=== PATIENT | male | born 1960 | race Caucasian/White ===

== ENCOUNTER → 2017-08-01 11:00 | Outpatient (CLI) | payer BC, SELFPAY ==
--- NOTE | 2017-08-01 15:23 | RAD_ITS ---
STUDY: X-RAY - CERVICAL SPINE REASON FOR EXAM: Male, 57 years old. Tingling in the arm. Right-sided neck pain TECHNIQUE: 5 view(s) of the cervical spine were obtained. COMPARISON: None FINDINGS: Normal anterior atlantoaxial articulation. Normal odontoid process. There is reversal of the normal cervical lordosis. There is C5-6 and C6-7 endplate spondylosis. There is C6-7 disc space narrowing. There is C5-6 and C6-7 osseous foraminal stenosis. The soft tissue structures are unremarkable. RAD/Cerv Spine 4 or 5 Views IMPRESSION: Degenerative change. No fracture. Electronically Signed: Jean Marie Chang MD at 22:25 EDT , Service support ,
== END ==
PROVIDERS: Family Provider Family Medicine; PCP Family Medicine; Visit Provider Family Medicine
DX: M54.12 Radiculopathy, cervical region (principal)
CPT/HCPCS: 72050

== ENCOUNTER 2017-09-14 18:00 | Outpatient (RCR) | payer BC, SELFPAY ==
--- NOTE | 2017-08-24 19:08 | HP.PTEVAL_ITS ---
Patient's Visit Information OGLA LOPEZ is a 57 year old M referred to Physical Therapy by Lokesh Foreman with a diagnosis of cervical radicuo. Date of Evaluation: 08/24/17 Physical Therapist: Ana Díaz - Visit Plan Frequency: 2x /Week Duration: 6 Weeks Plan: 2X/ week for 4-6 weeks for postural exercises, c-spine AROM, scapular strengthening, centralization of symptoms with HEP and modalities PRN. - Subjective Subjective: Pt reports that he has DDD of the spine and its pinching when he looks up to mid trap and then down the R arm. He can control it by not looking up. He woke up with a stiff neck one day and then one day it did not go away. The stiff neck went away and then the tingling thing would not go away. He started him on prednizone and something else and they did not do anything. Then Dr Loja relieved the muscle with a shot. He can manage but its a pain in the neck. Every once in awhile it will wake him up. It makes his R arm muscle achy(ddep in the lateral shoulder) but no weakness. He sleeps with 2 crappy pillows under his head at night. He thinks his pillows are pushing his neck more to one side. He does watch TV with his pillow propped up. 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 c-spine AROM: flexion 100%, ext 10 %, SB L 25% and R 50%, Ext 5%, Rot R 75% and L 85%. UE AROM: full AROM. UE MMT: shld flex B 4/5, shld abd 4/5, ER/IR B 4/5. Posture: Horrible flexed fw head, rounded shoulders. Tried to get pt to lay supine but was unable to do so unless his head was propped into extreme flexion. Unable to do any traction because could not get his head out of flexion. Palpation: tender points in mid trap that are very tender to palpation...... - Goals Goal 1:: I HEP Goal Time Frame: 4-6 Weeks Goal 2:: Sit with upright posture during treatment sessions Goal Time Frame: 4-6 Weeks Goal 3:: Decrease freq of arm and neck pain to 1/10 after a work day Goal Time Frame: 4-6 Weeks Goal 4:: Increase c-spine AROM to 50% normal extension of c-spine. Goal Time Frame: 4-6 Weeks - Rehabilitation Potential Rehabilitation Potential: Good - Anticipated Interventions Patient/Client Instruction: Educate patient on: Condition, Plan of Care For the Purpose of:: To decrease pain, To decrease swelling/inflammation, To increase ROM, To improve nutrient delivery to tissue, To improve muscle performance and motor function, To improve ability to perform ADL's, To increase tolerance to activity/condition/position, To improve performance and independence with ADL's, To improve ability of physical actions for home/ community/work/leisure, To improve health of tissue, To decrease soft tissue restriction, To increase flexibility/ROM Therapeutic Exercise to Include: Strength training, Postural training, Flexibilty training, Passive ROM, Active ROM, Scapular Strength/Stabilization For the Purpose of:: To decrease pain, To increase ROM, To improve nutrient delivery to tissue, To improve muscle performance and motor function, To improve ability to perform ADL's, To increase tolerance to activity/condition/ position, To improve performance and independence with ADL's, To improve ability of physical actions for home/community/work/leisure, To improve health of tissue, To decrease soft tissue restriction, To increase flexibility/ROM Manual Therapy Techniques to Include: Trigger point massage, Massage, Passive ROM, Functional dry needling, Soft tissue mobilization For the Purpose of:: To decrease pain, To increase ROM, To improve nutrient delivery to tissue, To improve muscle performance and motor function, To increase tolerance to activity/condition/position, To decrease level of supervision to perform tasks, To improve gait and locomotor functions, To decrease soft tissue restriction, To increase flexibility/ROM IF ES: Yes Cryotherapy (ice pack, ice massage): Yes Thermo therapy (hot pack): Yes Ultrasound (thermal/non thermal): Yes For the Purpose of:: To decrease pain, To decrease swelling/inflammation, To increase ROM, To improve nutrient delivery to tissue, To improve muscle performance and motor function, To improve ability to perform ADL's Thank you for the opportunity to evaluate your patient. For Medicare and Medicare HMO plans, please review the plan of care and approve it. It will need to be FAXED BACK to us at [phone] for Medicare purposes. Please let me know if there are questions or concerns regarding this plan of care. Physician Signature: Date:
--- NOTE | 2017-09-14 18:21 | HP.PTDCNRP_ITS ---
HP - Discharge Summary (1) - Patient Information OLGA LOPEZ was seen in my office for initial evaluation on 08/24/17. The following Plan of Care was established for this patient: Initial Frequency: 2x /Week Initial Duration: 6 Weeks - Anticipated Interventions Patient/Client Instruction: Educate patient on: Condition, Plan of Care For the Purpose of:: To decrease pain, To decrease swelling/inflammation, To increase ROM, To improve nutrient delivery to tissue, To improve muscle performance and motor function, To improve ability to perform ADL's, To increase tolerance to activity/condition/position, To improve performance and independence with ADL's, To improve ability of physical actions for home/ community/work/leisure, To improve health of tissue, To decrease soft tissue restriction, To increase flexibility/ROM Therapeutic Exercise to Include: Strength training, Postural training, Flexibilty training, Passive ROM, Active ROM, Scapular Strength/Stabilization For the Purpose of:: To decrease pain, To increase ROM, To improve nutrient delivery to tissue, To improve muscle performance and motor function, To improve ability to perform ADL's, To increase tolerance to activity/condition/ position, To improve performance and independence with ADL's, To improve ability of physical actions for home/community/work/leisure, To improve health of tissue, To decrease soft tissue restriction, To increase flexibility/ROM Manual Therapy Techniques to Include: Trigger point massage, Massage, Passive ROM, Functional dry needling, Soft tissue mobilization For the Purpose of:: To decrease pain, To increase ROM, To improve nutrient delivery to tissue, To improve muscle performance and motor function, To increase tolerance to activity/condition/position, To decrease level of supervision to perform tasks, To improve gait and locomotor functions, To decrease soft tissue restriction, To increase flexibility/ROM IF ES: Yes Cryotherapy (ice pack, ice massage): Yes Thermo therapy (hot pack): Yes Ultrasound (thermal/non thermal): Yes For the Purpose of:: To decrease pain, To decrease swelling/inflammation, To increase ROM, To improve nutrient delivery to tissue, To improve muscle performance and motor function, To improve ability to perform ADL's This patient was last seen in our office . Pertinent comments regarding their Physical therapy will appear below: At this point I will be discontinuing this patient from physical therapy. I would be happy to see this patient again in the future if found appropriate by the physician. Thank you! Ana Díaz
--- NOTE | 2017-09-14 18:28 | HP.PTDCSUM_ITS ---
HP - PT D/C Summary It has been my pleasure to treat OLGA LOPEZ under orders from Lokesh Foreman, for the diagnosis of cervical radicuo for a total of 6 visit (s). Discharge Date: 09/14/17 Please see the following information for a summary of their discharge status. - Subjective Subjective: Pt can't find a spot of comfort. He has to work to find a good sleeping position and if he moves and sets it off then he wakes up. By the end of the work day his R shoulder and neck is flared up. Pt feels that we were making some progress at first as far as his posture etc but now he feels that he has totally plateaued. Pt was really sore after the massage last visit but was a little less painful the next morning but worse as the day goes on. - Pain neck pain Pain Intensity (Out of 10): 5 R shloulder pain Pain Intensity (Out of 10): 2 - Overall Improvement % Improvement: 15 - Objective Objective/Function: c-spine AROM: flexion 100%, ext to neutral, Rot R 65%, Rot L 75%. Posture has definitely improved but fw head still persists due to increased R arm pain with anytype of extension ROM of the c-spine. Lying down with a towel roll uder his head sets off his arm symptoms.... - Goals Goal 1:: I HEP Goal Progress: Goal Met Goal 2:: Sit with upright posture during treatment sessions Goal Progress: Goal Met Goal 3:: Decrease freq of arm and neck pain to 1/10 after a work day Goal Progress: Not Progressing Goal 4:: Increase c-spine AROM to 50% normal extension of c-spine. Goal Progress: Not Progressing - Plan Plan: DC PT and back to physician for reassessment/possible MRI. Pt is not making gains in PT. - D/C Information Discharge Comments: DC PT If there are questions or concerns regarding this patient's physical therapy, please feel free to call me at [phone]. Thank you for the referral of this patient. Sincerely, Ana Díaz
== END 2017-09-14 19:00 | disposition home or self-care (01) ==
LOC: PT 18:00
PROVIDERS: Family Provider Family Medicine; PCP Family Medicine; Visit Provider Family Medicine
DX: M54.12 Radiculopathy, cervical region (principal)
CPT/HCPCS: 97035; 97110; 97140; 97161; 97530

== ENCOUNTER → 2017-09-28 12:09 | Outpatient (CLI) | payer BC, SELFPAY ==
--- NOTE | 2017-09-28 12:14 | MRI_ITS ---
STUDY: MRI CERVICAL SPINE WITHOUT CONTRAST REASON FOR EXAM: Male, 57 years old. Neck pain and right upper extremity radiculopathy TECHNIQUE: Standardized fat and water weighted pulse sequences were obtained in the sagittal and axial planes. COMPARISON: None FINDINGS: Normal foramen magnum and brainstem-cervical cord junction. Normal craniovertebral junction. Normal anterior atlantoaxial articulation. Normal odontoid process. Straightening of the cervical curvature with mild kyphosis at C7-T1. Normal vertebral bodies and posterior osseous elements. C2-3: Normal endplates. Normal disc height, signal and small central disc protrusion narrowing the spinal canal and mildly impinging upon the cord. Normal intervertebral neural foramina. C3-4: Normal endplates. Normal disc height, signal and small central disc protrusion mildly narrowing the spinal canal and impinging upon the cord.. Normal intervertebral neural foramina. C4-5: Normal endplates. Normal disc height, signal and morphology. Normal central canal and intervertebral neural foramina. C5-6: Narrowed disc space and mild endplate spurring tiny left posterolateral disc/osteophyte protrusion... Normal central canal. Moderate to severe bilateral neuroforaminal stenosis secondary to bony hypertrophy C6-7: Mild endplate spurring. Normal disc height, signal and minor bulging disc osteophyte complex. Normal central canal and severe left neuroforaminal stenosis secondary to bony hypertrophy and moderate narrowing on the right. C7-T1: Normal endplates. Normal disc height, signal and morphology. Normal central canal and intervertebral neural foramina. Normal cervical cord. Normal visualized soft tissue structures. MRI/Spine Cervical (Routine) IMPRESSION: Minor spinal stenosis and cord impingement secondary to disc protrusions at C2-3 and C3-4.. Neuroforaminal stenosis at C5-6 and C6-7 secondary to bony hypertrophy.. Findings as above Electronically Signed: Vito Pereira MD at 22:54 EDT , Service support ,
--- NOTE | 2017-09-28 12:26 | RAD_ITS ---
STUDY: X-RAY - ORBITS REASON FOR EXAM: Male, 57 years old. This study is being performed as a clearance examination for exclusion of orbital metal, prior to the performance of an MRI examination. TECHNIQUE: 2 view(s) of the orbits were obtained. COMPARISON: None. FINDINGS: Normal bilateral orbits without a metallic orbital foreign body. Normal visualized facial bones. Normal paranasal sinuses. The soft tissue structures are unremarkable. RAD/Orbits for Foreign Body IMPRESSION: No demonstrated metallic orbital foreign body. The patient is cleared for an MRI examination. Electronically Signed: Fox Alves MD at 12:56 EDT Tel , Service support ,
== END ==
PROVIDERS: Family Provider Family Medicine; PCP Family Medicine; Visit Provider Family Medicine
DX: M54.12 Radiculopathy, cervical region (principal)
CPT/HCPCS: 70030; 72141

== ENCOUNTER 2018-04-05 07:26 | Day surgery (SDC) | payer BC, SELFPAY ==
[2018-04-05 07:51] VITALS: BP 143/82; PULSE 69; RESP 16; TEMP 37.1; O2SAT 100; BMI 26.2
--- NOTE | 2018-04-05 09:22 | PCM.HP.STD ---
Problem List (1) Family history of colon cancer Status: Acute History of Present Illness Date of Admission: 04/05/18 The patient is a 58 year old M who presents for a colonoscopy. Patient has a sister who had colon cancer. Patient also states that he has had an episode of diverticulitis in the past but is never had a colonoscopy himself. Past Medical History Allergies No Known Allergies Allergy (Verified 04/04/18 10:11) Home Medications: Ambulatory Orders Medication Instructions Recorded NK 04/04/18 Smoking Status: Current every day smoker Tobacco Use: Cigarettes Review of Systems Cardiovascular: Denies: Chest Pain, Chest Pressure, Chest Tightness, Palpitations Respiratory: Denies: Cough, Hemoptysis, Shortness of breath at rest, Shortness of breath upon exertion, Wheezing Gastrointestinal: Denies: Abdominal Pain, Constipation, Diarrhea, Hematemesis, Nausea, Melena, Vomiting VTE Information - Inpt Only VTE Present on Admission: No VTE Mechan Device Prophylaxis: None VTE Pharm Prophylaxis ordered?: No Reason prophylaxis not ordered:: Treatment Not Indicated Patient Problems: Active and Suspected Problems Family history of colon cancer (Acute) - Physical Exam Lungs: Clear to auscultation Cardiovascular: Regular rate, Regular Rhythm, No murmurs Abdomen: Bowel Sounds Present, Soft, Non Tender, Non-Distended Vital Signs Temp Pulse Resp BP Pulse Ox 98.7 F 69 16 143/82 H 100 04/05/18 07:51 04/05/18 07:51 04/05/18 07:51 04/05/18 07:51 04/05/18 07:51 Oxygen Delivery Method Room Air Weight: 172 lb 2.896 oz Body Mass Index (BMI) 26.2 Assessment/Plan All Active Problems Family history of colon cancer (Acute) My plan is to perform a colonoscopy. Risk and benefits have been reviewed with the patient to include bleeding and possible perforation patient understood risk and was willing to proceed.
[2018-04-05 09:25] VITALS: BP 108/71; BP 143/82; PULSE 72; RESP 16; TEMP 36.8; O2SAT 97
--- NOTE | 2018-04-05 09:29 | OP.ENDO_ITS ---
Patient Name: Kumar Marie Procedure Date: 04/05/2018 9:00 AM Date of : 1960 Age: 58 Procedure: Colonoscopy Indications: Screening in patient at increased risk: Family history of 1st-degree relative with colorectal cancer before age 60 years Providers: Davonte Osullivan MD Referring MD: Siva Foreman Medicines: See the Anesthesia note for documentation of the administered medications Patient Profile: This is a 58 year old male. Refer to note in patient chart for documentation of history and physical. Last Colonoscopy: none. The patient's first colonoscopy is today. Complications: No immediate complications. Procedure: Pre-Anesthesia Assessment: - Prior to the procedure, a History and Physical was performed, and patient medications and allergies were reviewed. The patient's tolerance of previous anesthesia was also reviewed. The risks and benefits of the procedure and the sedation options and risks were discussed with the patient. All questions were answered, and informed consent was obtained. Prior Anticoagulants: The patient has taken no previous anticoagulant or antiplatelet agents. ASA Grade Assessment: II - A patient with mild systemic disease. After reviewing the risks and benefits, the patient was deemed in satisfactory condition to undergo the procedure. After I obtained informed consent, the scope was passed under direct vision. Throughout the procedure, the patient's blood pressure, pulse, and oxygen saturations were monitored continuously. The adult colonoscope was introduced through the anus with the intention of advancing to the cecum. The scope was advanced to the sigmoid colon before the procedure was aborted. Medications were given. The colonoscopy was aborted due to the extreme difficulty of the procedure. Withdrawing and reinserting the scope did not allow for the successful completion of the procedure. Scope In: 9:09:46 AM Scope Out: 9:19:43 AM Total Procedure Duration Time 0 hours 9 minutes 57 seconds Findings: The perianal and digital rectal examinations were normal. Pertinent negatives include normal sphincter tone. The anus, rectum and recto-sigmoid colon appeared normal. Impression: - The procedure was aborted due to the extreme difficulty of the procedure. - The anus, rectum and recto-sigmoid colon are normal. - No specimens collected. Recommendation: - Perform an air contrast barium enema today. - Repeat colonoscopy in 5 years for surveillance. - Continue present medications. Procedure Code(s): --- Professional --- 56978, 53, Colonoscopy, flexible; diagnostic, including collection of specimen(s) by brushing or washing, when performed (separate procedure) Diagnosis Code(s): --- Professional --- Z80.0, Family history of malignant neoplasm of digestive organs Z53.8, Procedure and treatment not carried out for other reasons CPT copyright 2017 [employer]. All rights reserved. The codes documented in this report are preliminary and upon professional fee coder review may be revised to meet current compliance requirements. MD Davonte Ramos MD 04/05/2018 9:29:27 AM This report has been signed electronically. Number of Addenda: 0 Note Initiated On: 04/05/2018 9:00 AM
[2018-04-05 09:30] VITALS: BP 117/75; BP 143/82; PULSE 65; RESP 16; O2SAT 100
[2018-04-05 09:35] VITALS: BP 139/78; BP 143/82; PULSE 59; RESP 16; O2SAT 98
[2018-04-05 09:40] VITALS: BP 139/59; BP 143/82; PULSE 66; RESP 16; TEMP 36.6; O2SAT 100
[2018-04-05 10:19] VITALS: BP 143/82
--- NOTE | 2018-04-05 10:30 | RAD_ITS ---
STUDY: BARIUM ENEMA. REASON FOR EXAM: Male, 58 years old. Incomplete colonoscopy. FLUOROSCOPY TIME (if supplied): (0:45) minutes/seconds. 10 images were obtained. TECHNIQUE: A labor representative film was obtained. Following this, barium was introduced retrograde through the rectum. The entire colon wasn't opacified. COMPARISON: None. FINDINGS: On the labor representative film, the gas pattern is unremarkable. There is evidence of extensive sigmoid diverticulosis. Diverticula are also seen in the ascending colon, transverse colon and right hemicolon. There is no evidence of retrograde or antegrade obstruction to the flow of contrast. RAD/Barium Enema No Air Cont IMPRESSION: Diffuse diverticulosis of the colon. Electronically Signed: Adiel Valencia MD at 13:15 EST Tel [phone], Service support ,
--- OUTSIDE RECORDS SUMMARY | 2018-07-07 08:04 | XMS RPT_ITS ---
:1960 Author Organization OHIP Care Team Providers Name Role Phone Davonte Osullivan Attending Unavailable Ranney, Christblancaer Referring Unavailable Ranney, Christopher Primary Care Unavailable Abran, Davonte Consulting Unavailable Abran, Davonte Attending Unavailable Ranney, Christopher Referring Unavailable Ranney, Christopher Attending Unavailable Ranney, Christopher Primary Care Unavailable Ranney, Christopher Attending Unavailable Ranney, Christopher Primary Care Unavailable Ranney, Christopher Attending Unavailable Ranney, Christopher Referring Unavailable Ranney, Christopher Primary Care Unavailable Nurse, Standard Attending Unavailable Ranney, Christopher Referring Unavailable Nurse, Standard Attending Unavailable Ranney, Christopher Referring Unavailable [place], Davonte Attending Unavailable Ranney, Christopher Primary Care Unavailable Ranney, Christopher Referring Unavailable PROBLEMS PROBLEMS DATE TYPE CONDITION / ATTENDING STATUS SOURCE CODE 09/28/2017 Unknown M54.12 - [facility] M54.12(ICD-10) PROCEDURES PROCEDURES No Procedure Records FoundRESULTS RESULTS SURGERY VISIT REPORT Observed: 04/18/2018 Status: F Source: [place] 11:13 AM [facility] REPOSITORY [facility] [address] [place] [address]. 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 There is also diverticuli seen throughout the colon there is no evidence of obstruction and then make no note of any lesions seen within the colon itself. Patient states that he is having bowel movements. He is not experiencing any abdominal pain. Objective Details: His abdomen is soft and nontender Assessment AND Plan Problems 1. Sigmoid stricture K56.699 Plan At the present time there does not appear to be any malignancy in the colon. I told him however there is no way for me to surveilled his colon since I cannot do his colonoscopy and get through the sigmoid colon. I gave him several options as far as trying to seek out another gastroenterology opinion to see if they can do his colonoscopy in future colonoscopies. I also gave him the chance of having an elective sigmoid colon resection. This is a particularly interesting dilemma this patient has he certainly does not need to have an emergent surgery there is no signs of infections and at the present time I have no evidence that he has a malignancy. However it remains I do not think I will be able to surveillance or offer him any further colonoscopies in the future. He understands this is going to think about his options and he will get back in touch with me. Coding Level of Care Code Off vis,est,level 2 Diagnoses Sigmoid stricture K56.699 04/18/18 1113 <Electronically signed by Davonte Osullivan MD> Date Davonte Osullivan MD [facility] Signature: Date (if applicable) CC: Lokesh Foreman MD BARIUM ENEMA NO AIR Observed: 04/05/2018 Status: F Source: [place] CONT 10:18 AM [facility] REPOSITORY [facility] Imaging Services [facility] [place] [address] Barium Enema No Air Cont MR#: [id number] Acct: [id number] Name: OLGA MARIE Rep #: [id number] : 1960 M 58 From: Adiel Valencia MD PCP: Lokesh Foreman MD Status: [facility] Study: Barium Enema No Air Cont Date of Exam: 04/05/18 Exam# [id number] Ordering Dr: Davonte Osullivan MD STUDY: BARIUM ENEMA. REASON FOR EXAM: Male, 58 years old. Incomplete colonoscopy. FLUOROSCOPY TIME (if supplied): (0:45) minutes/seconds. 10 images were obtained. TECHNIQUE: A staff physician film was obtained. Following this, barium was introduced retrograde through the rectum. The entire colon wasn't opacified. COMPARISON: None. FINDINGS: On the staff physician film, the gas pattern is unremarkable. There is evidence of extensive sigmoid diverticulosis. Diverticula are also seen in the ascending colon, transverse colon and right hemicolon. There is no evidence of retrograde or antegrade obstruction to the flow of contrast. RAD/Barium Enema No Air Cont IMPRESSION: Diffuse diverticulosis of the colon. Electronically Signed: Adiel Valencia MD at 13:15 EST Tel [phone], Service support , CC: Lokesh Foreman MD; Davonte Osullivan MD Complaint Manager: Signed OPERATIVE REPORT - Observed: 04/05/2018 Status: F Source: [place] ENDOSCOPY 9:29 AM [facility] Medical Records Department [address] [place] [address] Operative Report - Endoscopy MR#: [id number] Acct: [id number] Name: JESSICAOLGA Mike Rep #: [id number] : 1960 58 From: Davonte Osullivan MD PCP: Lokesh Foreman MD Status: [facility] Patient Name: Olga Marie Procedure Date: 04/05/2018 9:00 AM Date of : 1960 Age: 58 Procedure: Colonoscopy Indications: Screening in patient at increased risk: Family history of 1st-degree relative with colorectal cancer before age 60 years Providers: Davonte Osullivan MD Referring MD: Siva Foreman Medicines: See the Anesthesia note for documentation of the administered medications Patient Profile: This is a 58 year old male. Refer to note in patient chart for documentation of history and physical. Last Colonoscopy: none. The patient's first colonoscopy is today. Complications: No immediate complications. Procedure: Pre-Anesthesia Assessment: - Prior to the procedure, a History and Physical was performed, and patient medications and allergies were reviewed. The patient's tolerance of previous anesthesia was also reviewed. The risks and benefits of the procedure and the sedation options and risks were discussed with the patient. All questions were answered, and informed consent was obtained. Prior Anticoagulants: The patient has taken no previous anticoagulant or antiplatelet agents. ASA Grade Assessment: II - A patient with mild systemic disease. After reviewing the risks and benefits, the patient was deemed in satisfactory condition to undergo the procedure. After I obtained informed consent, the scope was passed under direct vision. Throughout the procedure, the patient's blood pressure, pulse, and oxygen saturations were monitored continuously. The adult colonoscope was introduced through the anus with the intention of advancing to the cecum. The scope was advanced to the sigmoid colon before the procedure was aborted. Medications were given. The colonoscopy was aborted due to the extreme difficulty of the procedure. Withdrawing and reinserting the scope did not allow for the successful completion of the procedure. Scope In: 9:09:46 AM Scope Out: 9:19:43 AM Total Procedure Duration Time 0 hours 9 minutes 57 seconds Findings: The perianal and digital rectal examinations were normal. Pertinent negatives include normal sphincter tone. The anus, rectum and recto-sigmoid colon appeared normal. Impression: - The procedure was aborted due to the extreme difficulty of the procedure. - The anus, rectum and recto-sigmoid colon are normal. - No specimens collected. Recommendation: - Perform an air contrast barium enema today. - Repeat colonoscopy in 5 years for surveillance. - Continue present medications. Procedure Code(s): --- Professional --- 88961, 53, Colonoscopy, flexible; diagnostic, including collection of specimen(s) by brushing or washing, when performed (separate procedure) Diagnosis Code(s): --- Professional --- Z80.0, Family history of malignant neoplasm of digestive organs Z53.8, Procedure and treatment not carried out for other reasons CPT copyright 2017 [employer]. All rights reserved. The codes documented in this report are preliminary and upon medical biller coder review may be revised to meet current compliance requirements. MD Davonte Ramos MD 04/05/2018 9:29:27 AM This report has been signed electronically. Number of Addenda: 0 Note Initiated On: 04/05/2018 9:00 AM 04/05/18928 Date Davonte Maldonado Signature: Date (if indicated) CC: Lokesh Foreman MD; Davonte Osullivan MD Date Dictated: 04/05/18899 Date Transcribed: Complaint Manager: ALTAF Signed HISTORY AND PHYSICAL Observed: 04/05/2018 Status: F Source: [place] EXAM 9:25 AM [facility] REPOSITORY [facility] Medical Records Department [address] [place] [address] History and Physical 04/05/18921 MR#: [id number] Acct: [id number] Name: OLGA MARIE Rep #: [id number] : 1960 58 From: Davonte Osullivan MD PCP: Lokesh Foreman MD Status: [facility] Location: [place] [address] Problem List (1) Family history of colon cancer Status: Acute History of Present Illness Date of Admission: 04/05/18 The patient is a 58 year old M who presents for a colonoscopy. Patient has a sister who had colon cancer. Patient also states that he has had an episode of diverticulitis in the past but is never had a colonoscopy himself. Past Medical History Allergies No Known Allergies Allergy (Verified 04/04/18 10:11) Home Medications: Ambulatory Orders Medication Instructions Recorded NK 04/04/18 Smoking Status: Current every day smoker Tobacco Use: Cigarettes Review of Systems Cardiovascular: Denies: Chest Pain, Chest Pressure, Chest Tightness, Palpitations Respiratory: Denies: Cough, Hemoptysis, Shortness of breath at rest, Shortness of breath upon exertion, Wheezing Gastrointestinal: Denies: Abdominal Pain, Constipation, Diarrhea, Hematemesis, Nausea, Melena, Vomiting VTE Information - Inpt Only VTE Present on Admission: No VTE Mechan Device Prophylaxis: None VTE Pharm Prophylaxis ordered?: No Reason prophylaxis not ordered:: Treatment Not Indicated Patient Problems: Active and Suspected Problems Family history of colon cancer (Acute) - Physical Exam Lungs: Clear to auscultation Cardiovascular: Regular rate, Regular Rhythm, No murmurs Abdomen: Bowel Sounds Present, Soft, Non Tender, Non-Distended Vital Signs Temp Pulse Resp BP Pulse Ox 98.7 F 69 16 143/82 H 100 04/05/18 07:51 04/05/18 07:51 04/05/18 07:51 04/05/18 07:51 04/05/18 07:51 Oxygen Delivery Method Room Air Weight: 172 lb 2.896 oz Body Mass Index (BMI) 26.2 Assessment/Plan All Active Problems Family history of colon cancer (Acute) My plan is to perform a colonoscopy. Risk and benefits have been reviewed with the patient to include bleeding and possible perforation patient understood risk and was willing to proceed. 04/05/18 0925 <Electronically signed by Davonte Osullivan MD> Date [facility] Signature: Date (if applicable) CC: Lokesh Foreman MD; Davonte Osullivan MD Signed ORBITS FOR FOREIGN Observed: 09/28/2017 Status: F Source: [place] B[place] 12:26 PM [facility] REPOSITORY [facility] Imaging Services [address] [place] [address] Orbits for Foreign Body MR#: [id number] Acct: [id number] Name: OGLA MARIE Rep #: [id number] : 1960 M 57 From: Fox Alves MD PCP: Lokesh Foreman MD Status: REG CLI Study: Orbits for Foreign Body Date of Exam: 09/28/17 Exam# [id number] Ordering Dr: Siva Foreman MD STUDY: X-RAY - ORBITS REASON FOR EXAM: Male, 57 years old. This study is being performed as a clearance examination for exclusion of orbital metal, prior to the performance of an MRI examination. TECHNIQUE: 2 view(s) of the orbits were obtained. COMPARISON: None. FINDINGS: Normal bilateral orbits without a metallic orbital foreign body. Normal visualized facial bones. Normal paranasal sinuses. The soft tissue structures are unremarkable. RAD/Orbits for Foreign Body IMPRESSION: No demonstrated metallic orbital foreign body. The patient is cleared for an MRI examination. Electronically Signed: Fox Alves MD at 12:56 EDT Tel , Service support , CC: Lokesh Foreman MD Complaint Manager: Signed SPINE CERVICAL Observed: 09/28/2017 Status: F Source: [place] (ROUTINE) 12:14 PM [facility] REPOSITORY [facility] Imaging Services [address] [place] [address] Spine Cervical (Routine) MR#: [id number] Acct: [id number] Name: OLGA MARIE Rep #: [id number] : 1960 M 57 From: Vito Pereira MD PCP: Lokesh Foreman MD Status: REG CLI Study: Spine Cervical (Routine) Date of Exam: 09/28/17 Exam# [id number] Ordering Dr: Siva Foreman MD STUDY: MRI CERVICAL SPINE WITHOUT CONTRAST REASON FOR EXAM: Male, 57 years old. Neck pain and right upper extremity radiculopathy TECHNIQUE: Standardized fat and water weighted pulse sequences were obtained in the sagittal and axial planes. COMPARISON: None FINDINGS: Normal foramen magnum and brainstem-cervical cord junction. Normal craniovertebral junction. Normal anterior atlantoaxial articulation. Normal odontoid process. Straightening of the cervical curvature with mild kyphosis at C7-T1. Normal vertebral bodies and posterior osseous elements. C2-3: Normal endplates. Normal disc height, signal and small central disc protrusion narrowing the spinal canal and mildly impinging upon the cord. Normal intervertebral neural foramina. C3-4: Normal endplates. Normal disc height, signal and small central disc protrusion mildly narrowing the spinal canal and impinging upon the cord.. Normal intervertebral neural foramina. C4-5: Normal endplates. Normal disc height, signal and morphology. Normal central canal and intervertebral neural foramina. C5-6: Narrowed disc space and mild endplate spurring tiny left posterolateral disc/osteophyte protrusion... Normal central canal. Moderate to severe bilateral neuroforaminal stenosis secondary to bony hypertrophy C6-7: Mild endplate spurring. Normal disc height, signal and minor bulging disc osteophyte complex. Normal central canal and severe left neuroforaminal stenosis secondary to bony hypertrophy and moderate narrowing on the right. C7-T1: Normal endplates. Normal disc height, signal and morphology. Normal central canal and intervertebral neural foramina. Normal cervical cord. Normal visualized soft tissue structures. MRI/Spine Cervical (Routine) IMPRESSION: Minor spinal stenosis and cord impingement secondary to disc protrusions at C2-3 and C3-4.. Neuroforaminal stenosis at C5-6 and C6-7 secondary to bony hypertrophy.. Findings as above Electronically Signed: Vito Pereira MD at 22:54 EDT , Service support , CC: Lokesh Foreman MD Complaint Manager: Signed PT D/C SUMMARY (1) Observed: 09/14/2017 Status: F Source: [place] 6:29 PM [facility] REPOSITORY [facility] Physical Therapy [facility] [address] [place] [address] Fax REHABILITATION SERVICES DISCHARGE SUMMARY MR#: [id number] Acct: [id number] Name: OLGA MARIE Rep #: [id number] : 1960 57 From: Ana Díaz MPT Referring Dr.: Lokesh Foreman MD Status: REG RCR Insurance: [employer] SELF PAY INSURANCE HP - PT D/C Summary It has been my pleasure to treat OLGA MARIE under orders from Lokesh Foreman, for the diagnosis of cervical radicuo for a total of 6 visit(s). Discharge Date: 09/14/17 Please see the following information for a summary of their discharge status. - Subjective Subjective: Pt can't find a spot of comfort. He has to work to find a good sleeping position and if he moves and sets it off then he wakes up. By the end of the work day his R shoulder and neck is flared up. Pt feels that we were making some progress at first as far as his posture etc but now he feels that he has totally plateaued. Pt was really sore after the massage last visit but was a little less painful the next morning but worse as the day goes on. - Pain neck pain Pain Intensity (Out of 10): 5 R shloulder pain Pain Intensity (Out of 10): 2 - Overall Improvement % Improvement: 15 - Objective Objective/Function: c-spine AROM: flexion 100%, ext to neutral, Rot R 65%, Rot L 75%. Posture has definitely improved but fw head still persists due to increased R arm pain with anytype of extension ROM of the c-spine. Lying down with a towel roll uder his head sets off his arm symptoms.... - Goals Goal 1:: I HEP Goal Progress: Goal Met Goal 2:: Sit with upright posture during treatment sessions Goal Progress: Goal Met Goal 3:: Decrease freq of arm and neck pain to 1/10 after a work day Goal Progress: Not Progressing Goal 4:: Increase c-spine AROM to 50% normal extension of c-spine. Goal Progress: Not Progressing - Plan Plan: DC PT and back to physician for reassessment/possible MRI. Pt is not making gains in PT. - D/C Information Discharge Comments: DC PT If there are questions or concerns regarding this patient's physical therapy, please feel free to call me at [phone]. Thank you for the referral of this patient. Sincerely, Ana Díaz <Electronically signed by Ana Díaz MPT> 09/14/17 1829 CC: Lokesh Foreman MD Signed INITAL EVALUATION (1) Observed: 08/30/2017 Status: F Source: [place] - PT 9:52 AM [facility] REPOSITORY [facility] Physical Therapy [facility] [address] [facility] [place] [address] Fax REHABILITATION SERVICES INITIAL EVALUATION MR#: [id number] Acct: [id number] Name: OLGA MARIE Rep #: [id number] : 1960 57 From: Ana WATERS Referring Dr.: Lokesh Foreman MD Status: REG RCR Insurance: [employer] SELF PAY INSURANCE Patient's Visit Information OLGA MARIE is a 57 year old M referred to Physical Therapy by Lokesh Foreman with a diagnosis of cervical radicuo. Date of Evaluation: 08/24/17 Physical Therapist: Ana Díaz - Visit Plan Frequency: 2x /Week Duration: 6 Weeks Plan: 2X/ week for 4-6 weeks for postural exercises, c-spine AROM, scapular strengthening, centralization of symptoms with HEP and modalities PRN. - Subjective Subjective: Pt reports that he has DDD of the spine and its pinching when he looks up to mid trap and then down the R arm. He can control it by not looking up. He woke up with a stiff neck one day and then one day it did not go away. The stiff neck went away and then the tingling thing would not go away. He started him on prednizone and something else and they did not do anything. Then Dr Loja relieved the muscle with a shot. He can manage but its a pain in the neck. Every once in awhile it will wake him up. It makes his R arm muscle achy(ddep in the lateral shoulder) but no weakness. He sleeps with 2 crappy pillows under his head at night. He thinks his pillows are pushing his neck more to one side. He does watch TV with his pillow propped up. 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 c-spine AROM: flexion 100%, ext 10%, SB L 25% and R 50%, Ext 5%, Rot R 75% and L 85%. UE AROM: full AROM. UE MMT: shld flex B 4/5, shld abd 4/5, ER/IR B 4/5. Posture: Horrible flexed fw head, rounded shoulders. Tried to get pt to lay supine but was unable to do so unless his head was propped into extreme flexion. Unable to do any traction because could not get his head out of flexion. Palpation: tender points in mid trap that are very tender to palpation...... - Goals Goal 1:: I HEP Goal Time Frame: 4-6 Weeks Goal 2:: Sit with upright posture during treatment sessions Goal Time Frame: 4-6 Weeks Goal 3:: Decrease freq of arm and neck pain to 1/10 after a work day Goal Time Frame: 4-6 Weeks Goal 4:: Increase c-spine AROM to 50% normal extension of c-spine. Goal Time Frame: 4-6 Weeks - Rehabilitation Potential Rehabilitation Potential: Good - Anticipated Interventions Patient/Client Instruction: Educate patient on: Condition, Plan of Care For the Purpose of:: To decrease pain, To decrease swelling/inflammation, To increase ROM, To improve nutrient delivery to tissue, To improve muscle performance and motor function, To improve ability to perform ADL's, To increase tolerance to activity/condition/position, To improve performance and independence with ADL's, To improve ability of physical actions for home/community/work/leisure, To improve health of tissue, To decrease soft tissue restriction, To increase flexibility/ROM Therapeutic Exercise to Include: Strength training, Postural training, Flexibilty training, Passive ROM, Active ROM, Scapular Strength/Stabilization For the Purpose of:: To decrease pain, To increase ROM, To improve nutrient delivery to tissue, To improve muscle performance and motor function, To improve ability to perform ADL's, To increase tolerance to activity/condition/position, To improve performance and independence with ADL's, To improve ability of physical actions for home/community/work/leisure, To improve health of tissue, To decrease soft tissue restriction, To increase flexibility/ROM Manual Therapy Techniques to Include: Trigger point massage, Massage, Passive ROM, Functional dry needling, Soft tissue mobilization For the Purpose of:: To decrease pain, To increase ROM, To improve nutrient delivery to tissue, To improve muscle performance and motor function, To increase tolerance to activity/condition/position, To decrease level of supervision to perform tasks, To improve gait and locomotor functions, To decrease soft tissue restriction, To increase flexibility/ROM IF ES: Yes Cryotherapy (ice pack, ice massage): Yes Thermo therapy (hot pack): Yes Ultrasound (thermal/non thermal): Yes For the Purpose of:: To decrease pain, To decrease swelling/inflammation, To increase ROM, To improve nutrient delivery to tissue, To improve muscle performance and motor function, To improve ability to perform ADL's Thank you for the opportunity to evaluate your patient. For Medicare and Medicare HMO plans, please review the plan of care and approve it. It will need to be FAXED BACK to us at [phone] for Medicare purposes. Please let me know if there are questions or concerns regarding this plan of care. Physician Signature: Date: <Electronically signed by Ana Díaz MPT> 08/30/17 0952 CC: Lokesh Foreman MD Signed For Medicare only, by signing this I certify the plan of care. Physicians Signature Date CERV SPINE 4 OR 5 Observed: 08/01/2017 Status: F Source: [place] VIEWS 3:23 PM [facility] REPOSITORY [facility] Imaging Services [address] [place] [address] Cerv Spine 4 or 5 Views MR#: [id number] Acct: [id number] Name: OLGA MARIE Rep #: [id number] : 1960 M 57 From: Jean Marie Chang MD PCP: Lokesh Foreman MD Status: PRE CLI Study: Cerv Spine 4 or 5 Views Date of Exam: 08/01/17 Exam# [id number] Ordering Dr: Siva Foreman MD STUDY: X-RAY - CERVICAL SPINE REASON FOR EXAM: Male, 57 years old. Tingling in the arm. Right-sided neck pain TECHNIQUE: 5 view(s) of the cervical spine were obtained. COMPARISON: None FINDINGS: Normal anterior atlantoaxial articulation. Normal odontoid process. There is reversal of the normal cervical lordosis. There is C5-6 and C6-7 endplate spondylosis. There is C6-7 disc space narrowing. There is C5-6 and C6-7 osseous foraminal stenosis. The soft tissue structures are unremarkable. RAD/Cerv Spine 4 or 5 Views IMPRESSION: Degenerative change. No fracture. Electronically Signed: Jean Marie Chang MD at 22:25 EDT , Service support , CC: Lokesh Foreman MD Complaint Manager: Signed ALLERGIES ALLERGIES DATE TYPE / CODE NAME / CODE REACTION SEVERITY SOURCE 04/14/2018 Drug No Known Unknown [facility] Allergy/4160 Allergies/F00 [facility] [facility] [id number](SNOMED [id number](RXNOR Repository CT) M) ENCOUNTERS ENCOUNTERS ADMIT/DISCHARGE ACCOUNT ADMITTING ENCOUNTER LOCATION SOURCE NUMBER CLASS 04/14/2018/ [id number] Ambulatory BMSBuilding:B [place] 8 3 MS.A [facility] Repository 04/05/2018 [id number] Ambulatory BMSBuilding:B [place] 2 MS.CF.[facility] Repository 04/05/2018/ [id number] Ambulatory [place] [facility] 2 [facility] ing:ENRoom: Repository AC15 02/22/2018/ [id number] Ambulatory BMSBuilding:B [place] 8 7 MS.[facility] Repository 12/13/2017/ [id number] Ambulatory BMSBuilding:B [place] 8 1 MS.[facility] Repository 09/28/2017 [id number] Ambulatory [place] 3 [facility] ing:MRI Repository 09/14/2017/ [id number] Ambulatory [place] 8 6 [facility] ing:PT Repository 08/01/2017 [id number] Ambulatory [place] [facility] 4 [facility] ing:MTRAD Repository PAYERS PAYERS ENCOUNTER GUARANTOR PAYER SUBSCRIBER SOURCE 04/14/2018 OLGA D Primary OLGA D [place] [id number] Insurance:ANTHEMPolic BACHMANDOB: Community [facility] y Number: [id number], [place] [id number] Repository 30[address]Csm: [address] jerri Date:6496-79-67IF [phone] () [address] [place] [address] 11925ZA: 04/14/2018 Secondary NOT GIVENUNK [place] Insurance:SELF PAY [facility] Number: Effective Repository Date:2018-04-13 04/05/2018 OLGA D Primary OLGA D [place] [id number] Insurance:ANTHEMPolic BACHMANDOB: [facility] y Number: [id number], [place] [id number] Repository [address]28[address]Xqt: [address] jer[address] Date:[id number] [phone] () [address] [place] [address] 17723BN: 04/05/2018 Secondary NOT GIVENUNK [place] Insurance:SELF PAY [facility] Number: Effective Repository Date:2018-04-05 04/05/2018 OLGA D Primary OLGA D [place] [id number] Insurance:ANTHEMPolic BACHMANDOB: Community [facility] y Number: [id number], [place] [id number] Repository 100[address]Pqh: (800) jerri Date:1407-13-73TI [phone] (HP) [address]TGZGVBOKAIDEN MULLINS [address]32[address]RU: 04/05/2018 Secondary NOT GIVENUNK [place] Insurance:SELF PAY [facility] Number: Effective Repository Date:2018-02-22 02/22/2018 OLGA D Primary OLGA D [place] [id number] Insurance:ANTHEMPolic BACHMANDOB: Community [employer] y Number: [id number], [place] [id number] Repository 04[address]Zgo: [phone]) jerri Date:[id number] [phone] () [address] 88706DL: 02/22/2018 Secondary NOT GIVENUNK [place] Insurance:SELF PAY [facility] Number: Effective Repository Date:2018-02-22 12/13/2017 OLGA D Primary OLGA D Ray[place] [id number] Insurance:ANTHEMPolic BACHMANDOB: Community [employer] y Number: [id number], [place] [id number] Repository 247[address]Vkb: [phone]) jerri Date:5768-44-68YO [phone] () [address]IQUILQKA[address] 57[address]TU: 12/13/2017 Secondary NOT GIVENUNK [place] Insurance:SELF PAY [facility] Number: Effective Repository Date:2017-12-13 09/28/2017 OLGA D Primary OLGA D [facility] [id number] Insurance:ANTHEMPolic BACHMANDOB: Community [employer] y Number: [id number], [place] [id number] Repository [address]Pcv: jerri Date:4755-61-59OS [phone] [address] -9 (HP) 428[address]CL: 09/28/2017 Secondary NOT GIVENUNK [place] Insurance:SELF PAY [facility] Number: Effective Repository Date:2017-09-22 09/14/[address] [id number] Insurance:ANTHEMPolic BACHMANDOB: Community [place] y Number: [id number], [place] [id number] Repository [address]Nwj: jerri Date:2636-73-25NW [phone] [address]UWYZGHS, [place] -9 () 159[address]CC: 09/14/2017 Secondary NOT GIVENUNK [place] Insurance:SELF PAY [facility] Number: Effective Repository Date:2017-08-16 08/01/[address] [id number] Insurance:ANTHEMPolic BACHMANDOB: Community [employer] y Number: [id number], [place] [id number] Repository [address]Qpw: jerri Date:6609-85-38GX [phone] [address]JLRECBO, [place] -9 () [address]SO: 08/01/2017 Secondary NOT GIVENUNK [place] Insurance:SELF PAY P[facility] Number: Effective Repository Date:2017-08-01
== END 2018-04-05 10:23 | disposition home or self-care (01) ==
LOC: EN 07:27 → AC 07:28
PROVIDERS: Family Provider Family Medicine; PCP Family Medicine; Referring Provider Family Medicine; Visit Provider Surgery
PROC: 0DJD8ZZ Inspection of Lower Intestinal Tract, Via Natural or Artificial Opening Endoscopic (ICD-10-PCS; CPT 45378; principal; 2018-04-05 08:55)
DX: Z12.11 Encounter for screening for malignant neoplasm of colon (principal); Z53.8 Procedure and treatment not carried out for other reasons; Z80.0 Family history of malignant neoplasm of digestive organs; F17.210 Nicotine dependence, cigarettes, uncomplicated
CPT/HCPCS: 45378; 74270; J7120; J1610

== ENCOUNTER → 2019-09-25 12:37 | Outpatient (CLI) | payer BC, SELFPAY ==
--- NOTE | 2019-09-25 12:53 | CT_ITS ---
STUDY: CT ABDOMEN AND PELVIS WITH CONTRAST REASON FOR EXAM: Male, 59 years old. LLQ, PAIN BLOODY STOOL, HX-DIVERTICULITIS RADIATION DOSAGE (If Supplied By Facility): CTDIvol = ( 10.68 ) mGy, DLP = ( 563.39 ) mGycm TECHNIQUE: Transaxial images were obtained from the dome of the diaphragm to the symphysis pubis with oral contrast. Oral and amp; IV Gastrografin and amp; 100mL Isovue-300 was administered. Sagittal and coronal images were reconstructed. Individualized dose optimization techniques were used for this CT. COMPARISON: None. FINDINGS: The visualized lung bases are unremarkable. The visualized portions of the heart are within normal limits. Normal liver. Normal gallbladder and extrahepatic biliary system. Normal spleen. Normal pancreas. Normal bilateral adrenal glands. Normal right kidney. Normal left kidney. Normal visualized stomach. Normal small intestine. There are multiple colonic diverticula consistent with diverticulosis. The appendix is visualized and appears normal. There is diffuse atherosclerotic calcification of the abdominal aorta, without a demonstrated aneurysm. Normal inferior vena cava. Normal retroperitoneum. Mild degree of diffuse bladder wall thickening although the bladder is not completely distended. The prostate measures 5.5 cm x 3.9 cm. Normal abdominal wall. There are degenerative changes of the visualized lumbar spine. CT/Abdomen/Pelvis WITH Contrast IMPRESSION: Findings in keeping with a noncomplicated sigmoid diverticulitis. Electronically Signed: Adiel Valencia, at 15:34 EDT , Service support ,
[2019-09-25 13:00] LABS: Absolute Lymphocyte Count 0.76 X10^3/uL (0.83-4.51); Absolute Neutrophil Count 5.4 X10^3/uL (2.0-7.7); Basophil# 0.05 X10^3/uL; Basophil% 0.8 % (0-1); Eosinophil# 0.01 X10^3/uL; Eosinophils% 0.2 % (0-5); Hematocrit 44.8 % (40-54); Hemoglobin 14.9 g/dL (13.0-16.5); Lymphocyte # 0.76 X10^3/ul (4.0); Lymphocyte % 11.5 % (19-41); Mean Corp Hgb Conc 33.3 g/dL (32-36); Mean Corpuscular Hgb 30.2 pg (27.0-32.0); Mean Corpuscular Volume 90.9 fL (80-94); Monocyte# 0.35 X10^3/uL; Monocyte% 5.3 % (0-10); NRBC Flagged by Analyzer 0 % (0-5); Neutrophil # 5.42 X10^3/uL (2.7-7.7); Neutrophil % 81.7 % (47-70); Platelet Count 241 K/mm3 (150-450); RBC Distribution Width CV 12.4 % (11.6-14.6); RBC Distribution Width SD 40.7 fl (35.1-43.9); Red Blood Count 4.93 M/mm3 (4.6-6.2); White Blood Count 6.6 K/mm3 (4.4-11.0)
[2019-09-25 13:23] LABS: Lactic Acid 0.8 mmol/L (0.4-1.9)
[2019-09-25 13:49] LABS: AST(SGOT) 29 U/L (15-37); Alanine Aminotransfer ALT/SGPT 35 U/L (16-61); Albumin, Serum 3.8 g/dL (3.2-5.0); Alkaline Phosphatase 85 U/L (45-117); Anion Gap 8 (5-15); BUN 12 mg/dL (7-18); BUN/Creat Ratio 12.1 RATIO (10-20); Calcium,Total 8.9 mg/dL (8.5-10.1); Chloride 102 mmol/L (98-107); Creatinine, Serum 0.99 mg/dL (0.70-1.30); EST Glomerular Filtration Rate 83 mL/min (>60); Est Glom Filt Rate - Afr Amer 100 mL/min (>60); Globulin 3.8 g/dL (2.2-4.2); Glucose 102 mg/dL (74-106); Potassium 3.7 mmol/L (3.5-5.1); Protein, Total 7.6 g/dL (6.4-8.2); Sodium Level 135 mmol/L (136-145)
== END ==
PROVIDERS: PCP Family Medicine; Referring Provider Family Medicine; Visit Provider Family Medicine
DX: K57.92 Diverticulitis of intestine, part unspecified, without perforation or abscess without bleeding (principal); R10.9 Unspecified abdominal pain
CPT/HCPCS: 36415; 74177; 80053; 83605; 85025; Q9967

== ENCOUNTER 2019-11-27 08:31 | Inpatient (IN) | payer BC, SELFPAY ==
--- NOTE | 2019-11-09 01:07 | HP_ITS ---
Intake Vital Signs 11/09/19 BMI 26.2 11/09/19 Height 5 ft 8 in 11/09/19 Weight: 165 lb 4 oz 11/09/19 BMI 25.1 11/09/19 BP 149/71 H 11/09/19 Blood Pressure Location Rt brachial 11/09/19 Position Sitting 11/09/19 Respiration 18 11/09/19 Pulse 70 11/09/19 Temp 98.2 F 11/09/19 Temp Source Temporal 11/09/19 Pulse Oximetry (%) 98 11/09/19 Oxygen Delivery Method room air Intake Visit Reasons: Diverticulitis Chief Complaint: discuss surgery Workers Compensation Claims Analyst Required: No Is patient in pain?: No Allergies No Known Allergies Allergy (Verified 11/09/19 12:56) PFSH Medical History Diverticulosis of colon (Acute) Diverticulitis (Acute) Anxiety (Acute) Family history of colon cancer (Acute) Surgical History Hx of hernia repair (Acute) Hx of colonoscopy (Acute) Family History Sister Breast cancer Colon cancer Mother Cancer Unknown type Diabetes Father CAD (coronary artery disease) Heart disease High cholesterol Social History Smoking Status: Current every day smoker tobacco type: cigarettes quit status: considering quitting alcohol intake: current alcohol intake frequency: a few times a month substance use type: does not use caffeine: Yes what type of physical activity do you participate in: none frequency: does not exercise HPI HPI Surgical H&P: Yes HPI: OLGA LOPEZ, is a 59 M who presents to the office today for evaluation for diverticulitis. Patient was seen by his primary care physician 1 09/25/2019 at that point he had been complaining of sharp pain in his left lower quadrant of his abdomen. He stated that this started after he had a particularly large meal. He also noted some bloody stools on the days prior to coming to his see his primary care physician. He thinks that he has had probably between 4 or 5 cases of diverticulitis over the years. For follow-up for an attempted colonoscopy on 04/05/2018 I was only able to get up approximately 30 cm I tried numerous maneuvers I just could not get in to the sigmoid colon I subsequently obtained a barium enema on him which showed extensive sigmoid diverticulosis. There is also diverticuli seen throughout the colon there is no evidence of obstruction and then make no note of any lesions seen within the colon itself. He has several days of antibiotics left. He currently is pain-free and moving his bowels. However he states that moving his bowels are extremely difficult. He will have numerous bowel movements throughout the day and still feel as if he is going to have to have more bowel movements when he is tired of living like this. Since I last saw him on 10-11-19 he has had no further abdominal pain is been moving his bowels appropriately and he is tolerated a diet. ROS General General: Yes weight change; no appetite, fatigue, colon cancer, breast cancer or weakness HEENT HEENT: No difficulty swallowing, eye injury, eye surgery, swollen glands or hoarseness Endo Endocrine: No thyroid disease, diabetes mellitus, thyroid cancer, Hair loss, heat intolerance or cold intolerance Skin Skin: No rash or changing moles Musc Musculoskeletal: No back problems, arthritis, rheumatoid arthritis, gout or joint pain Cardio Cardiovascular: No murmur, pacemaker, heart disease, atrial fibrillation, high blood pressure, heart attack, heart stent, palpitations, shortness of breat with exertion or chest pain Psych Psychiatric: Yes anxiety; no depression or hearing voices Resp Respiratory: No shortness of breath, No sleep apnea, No cough, No COPD, No asthma, No emphysema, No wheezing Gastro Gastrointestinal: No abdominal pain, No nausea or vomiting, No diarrhea, No constipation, No blood in stool, No acid reflux, No hemorrhoids, No ulcers, No gallbladder problem, No black,tarry stools Randal Hematologic: No blood thinners, No blood disorders, No bleeding, No anemia, No blood clots Neuro Neurologic: No weakness Exam Const General: no acute distress, well developed, well hydrated Orientation: oriented to person, oriented to place, oriented to time [facility] Head: normocephalic, atraumatic Ears: external ears normal Mouth: moist mucous membranes Eyes Sclera: sclerae normal Pupils: normal by confrontation Neck Neck: no lymphadenopathy noted Neck mass: No Thyroid: thyroid normal, symmetrical Chest Chest palpation & inspection: normal inspection of the chest Resp Effort & Inspection: normal respiratory effort Auscultation: clear to auscultation bilaterally Percussion: percussion normal Cardio Rate: regular rate Rhythm: regular rhythm Heart Sounds: no murmurs GI Palpation: soft, no hepatosplenomegaly, no masses, nontender Rectal Exam: other Other: Rectal exam deferred. Extrem General: normal to inspection, no clubbing, cyanosis or edema Assessment & Plan Problems 1. Diverticulitis of sigmoid colon K57.32 Plan I believe the patient at this point does need to have a surgery. There is no way for me to surveilled his colon or look at anything in his colon having this episode of diverticulitis and the fact that his bowel movements have not been normal for quite some time I think we have come to the point where it makes the most sense to remove the sigmoid colon. I sat down with the patient discussed all the risk associated with the surgery bleeding infection possible leak which could require him to have a temporary ileostomy or colostomy. He also understands that there is just general surgery risk such as blood clots heart attacks pneumonia strokes up to and including . I think that he is an excellent candidate to undergo a laparoscopic surgical colectomy. I am going to see him back in 1 month and then hopefully finalize doing a surgery on him sometime in the first or second week of November. I think by waiting we will give us a better chance of allowing the swelling that is in the colon area to go down and make the surgery itself for me easier. Coding Level of Care Code Off vis,est,level 2 Diagnoses Diverticulitis of sigmoid colon K57.32 COVID (Procedure Consent) Procedure Criteria Procedure Criteria: Yes Elective The surgeon/proceduralist and patient have discussed in detail the risk of exposure to and/or potential harm posed by the COVID-19 virus with having a surgery/procedure at this time versus the risk of? delaying the surgery/procedure. It is not possible to know either the risk of delaying the surgery or procedure or chance of getting an infection with perfect accuracy, but a joint decision was made between the patient and the surgeon/proceduralist ?to proceed at this time with the scheduled surgery/procedure as indicated on the consent form. Date _ Davonte Osullivan MD I have re-examined the patient. There are no clinical changes since date of exam.
[2019-11-09 12:56] VITALS: BMI 26.2
--- NOTE | 2019-11-21 09:47 | EKG12_ITS ---
Test Reason : PRE OP Blood Pressure : / mmHG Vent. Rate : 067 BPM Atrial Rate : 067 BPM P-R Int : 160 ms QRS Dur : 094 ms QT Int : 390 ms P-R-T Axes : 072 075 064 degrees QTc Int : 412 ms Normal sinus rhythm Normal ECG Confirmed by BERNIE BUENROSTRO, JANENE ([id number]), graphics editor AJ KAMARA ([id number]) on 11/26/2019 9:22:34 AM Referred By: Davonte Osullivan Confirmed By:JANENE GIBBS MD
[2019-11-21 11:30] LABS: Magnesium 2.3 mg/dL (1.6-2.6)
[2019-11-27] VITALS (9 sets, daily range): BP systolic 103–139; BP diastolic 63–80; PULSE 57–78; RESP 16; TEMP 36.1–37.5; O2SAT 98–100; BMI 25.1
[2019-11-27 09:01] LABS: Bedside Glucose 132 mg/dL (70-110)
[2019-11-27] MEDS: Lactated Ringers 1,000 ML 40 ML IV ×2 (09:12→17:35)
[2019-11-27] MEDS: Acetaminophen 500 MG Tablet 1000 MG PO ×2 (09:15→17:15)
[2019-11-27] MEDS: Gabapentin 600 MG Tablet PO (09:15)
--- NOTE | 2019-11-27 11:00 | COL_PTH ---
PATIENT: OLGA LOPEZ LOC: MS3 U#:[id number] AGE/SX: 59/M ROOM: MS311 RE11/27/[address]: Dr. Davonte Osullivan MD : 1960 BED: 1 DIS: 11/30/2019 SPEC #: [id number] RECD: 11/27/19 15:43 STATUS: KENNY REQ #: [id number] TIMOTEO: 11/27/19 11:[address]: Davonte Osullivan DEPT: SURGICAL PATHOLOGY RECD BY: Alistair Hester ENTERED: 11/28/19 08:26 SP TYPE: COLON OTHR DR: Dr. Lokesh Foreman MD Tissues: A - Colon, NOS B - Colon Donuts C - Colon Donuts D - Appendix, NOS Procedures: Surgery Specimen Level II Surgery Specimen Level III Surgery Specimen Level V HEADER OPERATION: ERAS, laparoscopic sigmoid colectomy, appendectomy PRE-OP DIAGNOSIS: Diverticulitis of sigmoid colon TISSUE SUBMITTED: A - Sigmoid colon, B - Proximal donut, C - Distal donut, D - Appendix MICROSCOPIC DIAGNOSIS A. Sigmoid colon, segmental colectomy: Diverticular disease of colon. Margins of excision with no pathologic change. Two out of two lymph nodes with no pathologic change. B. Proximal mucosal donut, excision: Fragment of colonic tissue, no pathologic change. C. Distal mucosal donut, excision: Fragment of colonic tissue, no pathologic change. D. Appendix, appendectomy: Early acute appendicitis. AM:brooke 11/30/19 MICROSCOPIC DESCRIPTION Slides are reviewed. GROSS DESCRIPTION A - Received in fixative is one container labeled with the patient's name and designated sigmoid colon. The specimen consists of a segment of colon measuring 15 cm in length and attached pericolonic adipose tissue. One resection margin is stapled. The other resection margin is open. The lumen contains fecal material. No mucosal lesion is identified. Also present in the container is a second segment of colon measuring 5 cm in length. Both resection margins are stapled. More dictation will follow after fixation. / SJ:brooke 11/28/19 Sections of the larger segment of colon reveal multiple diverticula. A few of the diverticula appear to be ruptured. Sections of pericolonic adipose tissue do not reveal any obviously enlarged lymph node. Cumulative Effects Analyst sections are submitted in eight cassettes as follows: 1 - smaller segment of colon, 28??larger segment of colon (2 - open resection margin, 3 - stapled resection margin, 4-7 - diverticula, 8??pericolonic adipose tissue). / : 11/29/19 B - Received in fixative is one container labeled with the patient's name and designated proximal donut. The specimen consists of a donut-shaped piece of colonic tissue measuring 2 x 1 x 1.5 cm. The specimen is bisected and submitted entirely in one cassette. / : 11/28/19 C - Received in fixative is one container labeled with the patient's name and designated distal donut. The specimen consists of a donut-shaped piece of colonic tissue measuring 2.5 x 1.5 x 0.6 cm. Multiple sutures are noted. The entire specimen is submitted in one cassette. / : 11/28/19 D - Received is one container labeled with the patient's name and designated appendix. The specimen consists of a C-shaped appendix measuring 7 cm in length and 0.7 cm in diameter. The attached periappendiceal adipose tissue measures up to 0.5 cm in width. The serosal surface is chand, glistening. No obvious perforation is identified. The lumen contains fecal material. No fecalith is identified. Cumulative Effects Analyst sections are submitted in one cassette. / : 11/28/19 TC:2 CPT: 01874, 99598 x2, 08584
[2019-11-27] MEDS: Lidocaine/D5W 2,000 MG/250 ML IV.SOLN 21.9 MG IV (11:21)
[2019-11-27] MEDS: Lubricating Jelly 60 GM Tube 30 GM TOPICAL (11:36)
[2019-11-27] MEDS: Bupivacaine 0.25% 30 ML Vial (14:00)
[2019-11-27] MEDS: BUPIVACAINE LIPOSOME/PF 20 ML VIAL OPERA.SITE (14:00)
--- NOTE | 2019-11-27 14:20 | PCM.OPRPT ---
Problem List (1) Diverticulosis of colon Status: Acute Report of Operation Date of Procedure: 11/27/19 Pre-Operative Diagnosis: Diverticulosis of the sigmoid colon Post-Operative Diagnosis: Same with rectal stricture Surgery/Procedure Performed:: Laparoscopic sigmoid colectomy. Incidental appendectomy Type of Anesthesia:: General Anesthesiologist: Wyatt Murdock Specimen's removed: 1. Sigmoid colon. 2. Proximal rectum. 3. Appendix Estimated Blood Loss (mL): 150cc Fluids Replaced: 1600cc lr Description of Procedure: Patient was brought into the operating room. Placed in the supine position. Under excellent general tracheal ovation legs were placed up in stirrups Welsh catheter was placed the abdomen and pelvis were then sterilely prepped and draped in the usual fashion. Local was injected supraumbilically. Incision was made. Varies needle was placed inside the abdomen the abdomen was insufflated to 15 torr. A #5 trocar was placed in a Visiport fashion. A right lower quadrant #1012 trocar was placed in between the 2 and #5 trocar was placed. Patient had significant amount of adhesions of the omentum down towards the pelvis area these were taken down with the Enseal. The omentum was then brought back into the upper abdomen. Patient was placed in the headdown position rotated to the left. Small intestine was then brought back into the upper abdomen without difficulty. I used the Enseal and came down on the white line of Toldt and went down into the pelvis. There is a significant amount of adhesions of the sigmoid colon to the lateral sidewall this took a lot of careful dissection. Eventually I was able to free the sigmoid colon from the lateral sidewall. I stayed directly on the bowel during this part of the case. I found an area of the distal sigmoid proximal rectum that I thought was appropriate to transect the bowel and this is what I did with a 60 stapler. I then came down on the mesentery proximal to where the disease section of the sigmoid colon was and what I felt I had enough check to make sure that my length was going to be good getting down into the pelvis and it was I was not going to need to mobilize anymore the colon or do a splenic flexure release. I made a Pfannenstiel incision open the external bleak fascia gain access into the abdomen and placed a medium wound protector into the wound. I transected the sigmoid colon and sent the specimen to pathology for permanent sectioning. A pursestring suture of 2-0 Prolene was then placed on the sigmoid colon and a 29 anvil was then placed into the colon and the pursestring suture was tied down. The rectum was then irrigated with 500 cc of a Betadine irrigation. We then started to do the irritation the small dilator went in without difficulty but I had a significant problem with a medium dilator to go in and it was very apparent that there was a strictured area in the proximal rectum. I decided that it was best that this was going to have to be removed and so I came down close to the rectum using the Enseal and then I transected proximal to this stricture with a 60 stapler. We were then able to dilate going all the way up to the large dilator without difficulty. The stapler was then placed into the rectum and directed up to the stump. The spike came out through the center and I hooked the anvil to the spike the stapler was then closed and fired without difficulty. I had to complete donuts. Air was placed into the rectum water was then placed into the pelvis and I had an airtight anastomosis. I inspected where my 1012 trocar was located there is a significant amount of bruising in this area and I decided that it was best that I take this area down so that I could see the cecum and ascending colon I used the Enseal mobilized the white line of Toldt came down I inspected the cecum there was some slight bruising in the area and a little bit of bleeding on the anterior lateral side. There was a small serosal tear therefore I placed a ahgihi-lf-owpng of 3-0 GI silk in this to control this. I had no leakage of stool and there was no signs of any air leaking from the cecum or ascending colon. I came down on the mesentery of the appendix with the Enseal and then I transected the base of the appendix with a 55 linear cutter. I sent this to pathology for permanent sectioning. I reinspected the anastomosis I placed more water in the pelvis I placed a rigid sigmoidoscope he distal to the anastomosis it looked good there was no bleeding and once again it was airtight showing no signs of leakage. The pelvis was then irrigated with approximately 500 cc of irrigation. I got an accurate needle and sponge count. The trochars were removed wound protector was removed. I brought the midline muscles together with an 0 Vicryl. Extra oblique fascia was then brought together with running #1 PDS local was injected. I closed the 10/12 trocar with a cveuuh-fl-ckstm stitch of 0 Vicryl. Skin incisions were then closed with subcuticular stitches of 4-0 Monocryl. Steri-Strips were applied sterile dressings were applied and patient tolerated the procedure well. - Admit VTE Documentation VTE Present on Admission: No VTE Mechan Device Prophylaxis: SCD's VTE Pharm Prophylaxis ordered?: No Reason prophylaxis not ordered:: Treatment Not Indicated 40xxx-49xxx: [id number] Laparo partial colectomy - +66087
--- NOTE | 2019-11-27 14:28 | RAD_ITS ---
STUDY: X-RAY - ABDOMEN/PELVIS REASON FOR EXAM: Male, 59 years old. Needle discrepancy. TECHNIQUE: Single AP view of the abdomen / pelvis. COMPARISON: None. FINDINGS: Normal visualized lung bases. Gaseous distention of the colon. No radiopaque foreign body is seen. Air is seen within the pelvis most likely secondary to recent surgery. Normal soft tissue structures. Normal visualized osseous structures. RAD/Abdomen Single View (Portable) IMPRESSION: No radiopaque foreign body is seen. Electronically Signed: Adiel Valencia, at 12:17 EDT , Service support ,
[2019-11-27] MEDS: Ensure Clear 120 ML Liquid PO ×2 (17:31→22:18)
[2019-11-27] MEDS: Docusate Sodium 100 MG Capsule PO (22:22)
[2019-11-28] VITALS (7 sets, daily range): BP systolic 100–116; BP diastolic 49–62; PULSE 52–69; RESP 12–16; TEMP 36.7–37.3; O2SAT 94–97
[2019-11-28] MEDS: Acetaminophen 500 MG Tablet 1000 MG PO ×4 (00:53→18:09)
[2019-11-28 05:58] LABS: Hematocrit 37.9 % (40-54); Hemoglobin 12.2 g/dL (13.0-16.5); Mean Corp Hgb Conc 32.2 g/dL (32-36); Mean Corpuscular Hgb 29.4 pg (27.0-32.0); Mean Corpuscular Volume 91.3 fL (80-94); Mean Platelet Vol. 10.5 fl (6.2-12.0); Platelet Count 220 K/mm3 (150-450); RBC Distribution Width CV 12.8 % (11.6-14.6); RBC Distribution Width SD 42.5 fl (35.1-43.9); Red Blood Count 4.15 M/mm3 (4.6-6.2); White Blood Count 8.6 K/mm3 (4.4-11.0)
[2019-11-28 06:38] LABS: Anion Gap 3 (5-15); BUN 6 mg/dL (7-18); BUN/Creat Ratio 6.1 RATIO (10-20); Calcium,Total 7.7 mg/dL (8.5-10.1); Chloride 109 mmol/L (98-107); Creatinine, Serum 0.99 mg/dL (0.70-1.30); EST Glomerular Filtration Rate 83 mL/min (>60); Est Glom Filt Rate - Afr Amer 100 mL/min (>60); Estimated Creatinine Clearance 76.97 ml/min; Glucose 91 mg/dL (74-106); Sodium Level 140 mmol/L (136-145)
--- NOTE | 2019-11-28 08:05 | PN.SURG_ITS ---
Subjective: Patient is complaining of being dizzy this morning. He has had some slight flatus no bowel movements. He still feels significantly tender in his lower abdominal area. Objective: Abdomen is soft slightly distended dressings are dry - Physical Exam Vitals/I&O's: Vital Signs Temp Pulse Resp BP Pulse Ox 99.2 F H 63 16 100/61 97 11/28/19 04:57 11/28/19 04:57 11/28/19 04:57 11/28/19 04:57 11/28/19 04:57 Oxygen Flow Rate (L/min) 6 Oxygen Delivery Method Room Air Weight: 160 lb 7.944 oz Body Mass Index (BMI) 25.1 Intake and Output for Last 24 Hours 11/26/19 11/27/19 11/28/19 23:59 23:59 23:59 Intake Total 992.50 / 1732.50 1580 / 1580 Output Total 500 / 1350 2300 / 2300 Balance 492.50 / 382.50 -720 / -720 Laboratory Results 11/27/19 08:56: POC Glucose 132 H 11/28/19 05:48: WBC 8.6, RBC 4.15 L, Hgb 12.2 L, Hct 37.9 L, MCV 91.3, MCH 29.4, MCHC 32.2, RDW Std Deviation 42.5, RDW Coeff of Aixa 12.8, Plt Count 220, MPV 10.5 11/28/19 05:48: Sodium 140, Potassium 4.0, Chloride 109 H, Carbon Dioxide 28.0, Anion Gap 3 L, BUN 6 L, Creatinine 0.99, Estim Creat Clear Calc 76.97, Est GFR (MDRD) Af Amer 100, Est GFR (MDRD) Non-Af 83, BUN/Creatinine Ratio 6.1 L, Glucose 91, Calcium 7.7 L Current Medications Acetaminophen (Tylenol) 1,000 mg PO Q6 [facility] Last Admin: 11/28/19 05:59 Dose: 1,000 mg Documented by: Docusate Sodium (Colace) 100 mg PO BID [facility] Last Admin: 11/27/19 22:22 Dose: 100 mg Documented by: Hydromorphone HCl (Dilaudid Inj) 0.5 mg IV Q3H PRN PRN PRN Reason: Pain Score 6-10/10 Lactated Ringer's () 1,000 mls @ 40 mls/hr IV .Q25H [facility] Last Infusion: 11/27/19 22:48 Dose: 40 mls/hr Documented by: Cefotetan Disodium 1 gm/ (Sodium Chloride) 50 mls @ 100 mls/hr IV Q12H [facility] Stop: 11/28/19 11:29 Last Infusion: 11/27/19 22:48 Dose: Infused Documented by: Sodium Chloride () 250 mls @ 15 mls/hr IV .[id number] PRN PRN Reason: Saline Flush Insulin Human Lispro (Humalog Kwikpen (Bkc)) 0 unit SC Q4H PRN PRN; Protocol PRN Reason: BG >/= 180, SEE PROTOCOL Magnesium Oxide (Mag-Ox 400) 400 mg PO DAILY PRN PRN PRN Reason: Constipation Nutritional Formula (Lactose Free) (Ensure Clear) 120 ml PO 4X/DAY [facility] Last Admin: 11/27/19 22:18 Dose: 120 ml Documented by: Ondansetron HCl (Zofran Odt) 4 mg PO Q6H PRN PRN PRN Reason: NAUSEA Oxycodone HCl (Oxyir) 5 - 10 mg PO Q4H PRN PRN PRN Reason: Pain Score 4-10/10 Sodium Chloride () 10 - 40 ml IV UD PRN PRN Reason: SALINE FLUSH Medical Necessity - Tobacco Use Smoking Status: Current every day smoker Tobacco Use: Cigarettes Assessment/Plan All Active Problems (Last Reviewed 11/09/19 @ 13:[address] Davonte Osullivan MD) Hx of hernia repair (Acute) Diverticulosis of colon (Acute) Diverticulitis (Acute) Anxiety (Acute) Hx of colonoscopy (Acute) Family history of colon cancer (Acute) Postoperative day #1. We will remove Welsh catheter today. Patient is chewing gum working on his GI function. Labs appear to be appropriate.
[2019-11-28] MEDS: Ensure Clear 120 ML Liquid PO (08:33)
[2019-11-28] MEDS: Docusate Sodium 100 MG Capsule PO ×2 (08:33→20:53)
--- NOTE | 2019-11-28 11:30 | CASEMGMT ---
RN THAI Face to Face with patient for initial transition planning/care coordination assessment. RN CM introduced self and role at [facility]. Patient lying in bed, alert and oriented. Patient willing to participate in assessment and is able to answer all questions appropriately. Care providers, pharmacy, and demographics verified. Patient wishes to discharge home, denies need for home health at this time. Patient states he has no further needs or concerns at this time. CM to follow for discharge planning needs that may arise. PCP: Ahsan Specialists: Abran Hernandez Pharmacy: [facility] Insurance: Damar Prescription Benefit: yes Living Will/HPOA: none LNOK: father Living Arrangements: Patient will be discharging and staying with father in his 1 story home. Patient states he is independent at home. Transportation: self/father DME/HHC: Patient denies DME Disposition Plan: Patient to discharge home with family support and follow-up plans in place. Ese TINSLEY, RN, CM
[2019-11-28] MEDS: Lactated Ringers 1,000 ML 40 ML IV (18:11)
[2019-11-29] MEDS: Acetaminophen 500 MG Tablet 1000 MG PO ×4 (00:54→18:24)
[2019-11-29 03:47] VITALS: BP 109/64; PULSE 66; RESP 16; TEMP 37.2; O2SAT 97
[2019-11-29 08:50] VITALS: BP 120/75; PULSE 58; RESP 16; TEMP 36.9; O2SAT 98
[2019-11-29] MEDS: Docusate Sodium 100 MG Capsule PO ×2 (08:51→22:31)
[2019-11-29] MEDS: Ensure Clear 120 ML Liquid PO (08:51)
--- NOTE | 2019-11-29 15:03 | PN.SURG_ITS ---
Subjective: Pain is much better controlled today. Has had flatus little bit of bowel movement. Objective: Abdomen is soft dressings are dry. - Physical Exam Vitals/I&O's: Vital Signs Temp Pulse Resp BP Pulse Ox 98.4 F 58 L 16 120/75 98 11/29/19 08:50 11/29/19 08:50 11/29/19 08:50 11/29/19 08:50 11/29/19 08:50 Oxygen Flow Rate (L/min) 6 Oxygen Delivery Method Room Air Weight: 160 lb 7.944 oz Body Mass Index (BMI) 25.1 Intake and Output for Last 24 Hours 11/27/19 11/28/19 11/29/19 23:59 23:59 23:59 Intake Total 992.50 / 1732.50 3145.34 / 3145.34 572 / 572 Output Total 500 / 1350 3300 / 3300 Balance 492.50 / 382.50 -154.66 / -154.66 572 / 572 Current Medications Acetaminophen (Tylenol) 1,000 mg PO Q6 [facility] Last Admin: 11/29/19 12:28 Dose: 1,000 mg Documented by: Docusate Sodium (Colace) 100 mg PO BID [facility] Last Admin: 11/29/19 08:51 Dose: 100 mg Documented by: Hydromorphone HCl (Dilaudid Inj) 0.5 mg IV Q3H PRN PRN PRN Reason: Pain Score 6-10/10 Lactated Ringer's () 1,000 mls @ 40 mls/hr IV .Q25H [facility] Last Admin: 11/28/19 18:11 Dose: 40 mls/hr Documented by: Sodium Chloride () 250 mls @ 15 mls/hr IV .[id number] PRN PRN Reason: Saline Flush Insulin Human Lispro (Humalog Kwikpen (Bkc)) 0 unit SC Q4H PRN PRN; Protocol PRN Reason: BG >/= 180, SEE PROTOCOL Magnesium Oxide (Mag-Ox 400) 400 mg PO DAILY PRN PRN PRN Reason: Constipation Nutritional Formula (Lactose Free) (Ensure Clear) 120 ml PO 4X/DAY [facility] Last Admin: 11/29/19 13:46 Dose: Not Given Documented by: Ondansetron HCl (Zofran Odt) 4 mg PO Q6H PRN PRN PRN Reason: NAUSEA Oxycodone HCl (Oxyir) 5 - 10 mg PO Q4H PRN PRN PRN Reason: Pain Score 4-10/10 Sodium Chloride () 10 - 40 ml IV UD PRN PRN Reason: SALINE FLUSH Medical Necessity - Tobacco Use Smoking Status: Current every day smoker Tobacco Use: Cigarettes Assessment/Plan All Active Problems (Last Reviewed 11/09/19 @ 13:[address] Davonte Osullivan MD) Hx of hernia repair (Acute) Diverticulosis of colon (Acute) Diverticulitis (Acute) Anxiety (Acute) Hx of colonoscopy (Acute) Family history of colon cancer (Acute) Postoperative day #2 We will start to advance his diet. Hopefully we will see if he is ready for discharge tomorrow.
[2019-11-29 15:30] VITALS: BP 125/67; PULSE 65; RESP 18; TEMP 37; O2SAT 97
[2019-11-29] MEDS: Lactated Ringers 1,000 ML 40 ML IV (17:36)
[2019-11-29 20:34] VITALS: BP 122/76; PULSE 60; RESP 18; TEMP 37.1; O2SAT 97
[2019-11-30] MEDS: Acetaminophen 500 MG Tablet 1000 MG PO ×3 (01:02→12:30)
[2019-11-30 02:31] VITALS: BP 121/65; PULSE 64; RESP 18; TEMP 36.6; O2SAT 97
[2019-11-30] MEDS: Docusate Sodium 100 MG Capsule PO (07:36)
[2019-11-30 07:41] VITALS: BP 131/75; PULSE 58; RESP 14; TEMP 37.1; O2SAT 97
--- NOTE | 2019-11-30 11:41 | DCINST_ITS ---
Discharge Diet: Light diet - advance as tolerated - If you have questions about your diet instructions, please talk to your doctor. Discharge Activity: May Not Drive - for 1 week or while taking narcotic pain medicine. May shower in (days): 1 Lifting Restrictions: 10 pounds Call your doctor if your incision/area has: Continuous Slow Oozing, Sudden Increased Bleeding, Increased Pain/ Swelling, Increased Redness, Foul Smelling Discharge Call your doctor if you observe: Fever of 101 or Higher Suture Line Care: Avoid Pulling/Pushing, Avoid Pinching/Bending Additional Dressing/Incision Instructions:: Change or remove dressing in 4 days. Leave steri-strips in place for 1 week. Allergies/Adverse Reactions: Allergies No Known Allergies Allergy (Verified 11/27/19 08:47) Medications to take at Discharge Metronidazole 500 mg PO .COMPLEX 11/20/19 Neomycin Sulfate 500 mg PO .COMPLEX 11/20/19 Primary Care Physician: Siva Foreman MD [Primary Care Provider] - Test Results: Test results from this visit will be discussed in further detail at your follow- up appointment, if applicable. Please Follow Up With: Davonte Osullvian MD - [phone] When: Call to make an appointment to be seen in about 10 days.
--- NOTE | 2019-11-30 11:42 | PCM.DC.SUM ---
Discharge Date and Diagnosis Date of Admission: 04/05/18 Date of Discharge: 11/30/19 Hospital Course and Treatment Operations: - - Laparoscopic sigmoid colectomy Incidental appendectomy Summary of Care Provided: The patient is a 59 year old M admitted underwent a laparoscopic sigmoid colectomy with an incidental appendectomy. Tolerated the procedure well diet was advanced appropriately to the point now where he is having bowel movements and his pain is much better controlled. Pathology report is still pending - Physical Exam Vitals/I&O's: Vital Signs Temp Pulse Resp BP Pulse Ox 98.8 F 58 L 14 131/75 H 97 11/30/19 07:41 11/30/19 07:41 11/30/19 07:41 11/30/19 07:41 11/30/19 07:41 Oxygen Flow Rate (L/min) 6 Oxygen Delivery Method Room Air Weight: 160 lb 7.944 oz Body Mass Index (BMI) 25.1 Intake and Output for Last 24 Hours 11/28/19 11/29/19 11/30/19 23:59 23:59 23:59 Intake Total 3145.34 / 3145.34 2108.67 / 2108.67 800 / 800 Output Total 3300 / 3300 Balance -154.66 / -154.66 2108.67 / 2108.67 800 / 800 General: Alert, Oriented x3 Abdomen: Bowel Sounds Present, Soft, Non Tender, Non-Distended Current Medications Acetaminophen (Tylenol) 1,000 mg PO Q6 [facility] Last Admin: 11/30/19 07:01 Dose: 1,000 mg Documented by: Docusate Sodium (Colace) 100 mg PO BID [facility] Last Admin: 11/30/19 07:36 Dose: 100 mg Documented by: Hydromorphone HCl (Dilaudid Inj) 0.5 mg IV Q3H PRN PRN PRN Reason: Pain Score 6-10/10 Lactated Ringer's () 1,000 mls @ 40 mls/hr IV .Q25H [facility] Last Admin: 11/29/19 17:36 Dose: 40 mls/hr Documented by: Sodium Chloride () 250 mls @ 15 mls/hr IV .[id number] PRN PRN Reason: Saline Flush Insulin Human Lispro (Humalog Kisha (Bkc)) 0 unit SC Q4H PRN PRN; Protocol PRN Reason: BG >/= 180, SEE PROTOCOL Magnesium Oxide (Mag-Ox 400) 400 mg PO DAILY PRN PRN PRN Reason: Constipation Ondansetron HCl (Zofran Odt) 4 mg PO Q6H PRN PRN PRN Reason: NAUSEA Oxycodone HCl (Oxyir) 5 - 10 mg PO Q4H PRN PRN PRN Reason: Pain Score 4-10/10 Sodium Chloride () 10 - 40 ml IV UD PRN PRN Reason: SALINE FLUSH Discharge Diet: Light diet - advance as tolerated - If you have questions about your diet instructions, please talk to your doctor. Discharge Activity: May Not Drive - for 1 week or while taking narcotic pain medicine. May shower in (days): 1 Call your doctor if your incision/area has: Continuous Slow Oozing, Sudden Increased Bleeding, Increased Pain/ Swelling, Increased Redness, Foul Smelling Discharge Call your doctor if you observe: Fever of 101 or Higher Suture Line Care: Avoid Pulling/Pushing, Avoid Pinching/Bending Additional Dressing/Incision Instructions:: Change or remove dressing in 4 days. Leave steri-strips in place for 1 week. Home Medications: Medications to take at Discharge Metronidazole 500 mg PO .COMPLEX 11/20/19 Neomycin Sulfate 500 mg PO .COMPLEX 11/20/19 Primary Care Physician: Siva Foreman MD [Primary Care Provider] - Please Follow Up With: Davonte Osullivan MD - [phone] When: Call to make an appointment to be seen in about 10 days. Medical Necessity - Tobacco Use Smoking Status: Current every day smoker Tobacco Use: Cigarettes Meaningful Use Info Meaningful Use Diagnoses (Choose all that apply): None applicable
[2019-11-30 12:15] VITALS: BP 121/72; PULSE 56; RESP 12; TEMP 37.2; O2SAT 99
== END 2019-11-30 12:50 | disposition home or self-care (01) | DRG 330 ==
LOC: ACINP 08:32 → MS3 16:15
PROVIDERS: Anesthesiology; Admitting Provider Surgery; PCP Family Medicine; Referring Provider Surgery; Visit Provider Surgery
PROC: 0DTN0ZZ Resection of Sigmoid Colon, Open Approach (ICD-10-PCS; CPT 44204; principal; 2019-11-27 10:35)
DX: K57.32 Diverticulitis of large intestine without perforation or abscess without bleeding (principal); K35.80 Unspecified acute appendicitis; K66.0 Peritoneal adhesions (postprocedural) (postinfection); F17.210 Nicotine dependence, cigarettes, uncomplicated; Z80.0 Family history of malignant neoplasm of digestive organs; K62.4 Stenosis of anus and rectum
CPT/HCPCS: 36415; 74018; 80048; 82962; 83735; 85027; 87635; 88302; 88304; 88307; 93005; 94799; 99251; 99406; J7120; C1760; G0463; J2405; U0003

== ENCOUNTER → 2022-07-12 | Outpatient (CLI) | payer BC, SELFPAY ==
--- NOTE | 2022-07-12 13:50 | RAD_ITS ---
INDICATION: PAIN EXAMINATION/TECHNIQUE: X-RAY - LEFT XR Shoulder 5 VIEWS COMPARISON: None. FINDINGS: SOFT TISSUES: No soft tissue swelling or gas. No radiopaque foreign body. Focal soft tissue calcification adjacent to greater tuberosity possibly related to calcific tendinopathy. BONES/JOINTS: No acute fracture or subluxation.. Normal alignment. Preservation of the joint space.. No sclerotic or destructive changes observed. RAD/Shoulder min 2 Views IMPRESSION: Focal soft tissue calcification adjacent to greater tuberosity possibly related to calcific tendinopathy. Electronically Signed: Chase Oliveira DO at 16:12 EDT ,
--- NOTE | 2022-07-12 13:50 | RAD_ITS ---
EXAM: XR CERVICAL SPINE, 4 OR 5 VIEWS CLINICAL INDICATION: CERVICAL RADICULOPATHY CERVICAL RADICULOPATHY TECHNIQUE: Frontal, lateral and bilateral oblique views of the cervical spine. This report was created using Padlet report [employer] technology. COMPARISON: X-ray cervical spine 08/01/2017. MRI cervical spine 09/28/2017. FINDINGS: VERTEBRAE: There is multilevel spondylosis. Preserved vertebral body height. No acute fracture. Preservation of the normal cervical lordosis. No significant facet arthropathy. DISC SPACES: There is mild relative disc space narrowing at the C6-7 level. Multilevel degenerative changes of uncovertebral joints and apophyseal joints. There is apparent bilateral neural foraminal stenosis at the C5-6, C6-7, and C7-T1 levels. SOFT TISSUES: Unremarkable. No prevertebral soft tissue widening. LUNG APICES: Clear. RAD/Cerv Spine 4 or 5 Views IMPRESSION: Multilevel degenerative changes, with a multilevel neural foraminal stenosis. Electronically Signed: Heriberto Gongora MD at 6:53 EDT Reading Location ID and State: [facility] / [place] , Service support ,
== END | disposition home or self-care (01) ==
LOC: MTRAD 13:43
PROVIDERS: PCP Family Medicine; Visit Provider Family Medicine
DX: M25.512 Pain in left shoulder (principal); M54.12 Radiculopathy, cervical region
CPT/HCPCS: 72050; 73030

== ENCOUNTER 2022-10-05 12:00 | Outpatient (RCR) | payer BC, SELFPAY ==
--- NOTE | 2022-07-26 10:49 | HP.PTEVAL ---
Patient's Visit Information OLGA LOPEZ is a 62 year old M referred to Physical Therapy by Dr. Siva Foreman MD with a diagnosis of cervical DDD. Date of Evaluation: 07/26/22 Physical Therapist: Vishal Bell, FAVIOLA, OCS, CSCS - Visit Plan Frequency: 2-3x /Week Duration: 4-6 Weeks Plan: Pt presents with L frozen shoulder vs ddd. 2-3x/week x 2-4 recommended but patient wishes to try HEP for first week...given supine shoulder flex and er and sleeper stretch 10 sec 10 x at least 2x/day and postural correction with HO. check in a week for shoulder mobs, stretchingand increase frequency as needed. back to doctor for MRI if not improving - Subjective I need MRI. had a bulging disc 5 yrs ago just waking up with it. Had stiff neck around that time. had PT which did not help. MRI at time showed bulging disc. Bought a new bed and pillow at the time and sent for pain management. Pain went away a week later and maybe got andre. This time: Slow onset of L arm pain, Hard to move L arm lifting. l arm ROM is limited and will drop to knees. Low ROM level is ok. Reaching out to side is painful. Doesn't really have any neck pain. Sometimes at night his L neck will wake him up. Pointing more to shoulder pain. Sleep is OK but wakes up at night now and then if he lies on it. Retired. Hobbies: takes care of father. Dressing can be challenging due to limited ROM, hard to shut car door. Hard to reach with left hand. Is r handed. Spent 3 hours raking yesterday and sore but not bad. - Pain L arm shoulder. Pain Intensity (Out of 10): 0 Pain Intensity Range: 0, 10 - Objective Walks into PT I and comfortable. Trasnfer I. Cervical aROM 55 ext and 68 B rotation without pain, 18 SB B no pain. Posture is forward head protracted scap. Holds L scap slightly elevated and this is more noticeable with UE elevation L. wrist, hand and elbow aROM WNL and strength 4+/5. reflexes 2/3 bi and tri. Sensation UE WNL to gross light touch. AROM R shoulder 155 elevation and 85 er adn l3 IR. AROM L shoulder 128 flexion with scap elevation, 88 abduction, 40 er and PSIS IR all limited by pain. PROM 130 flexion and 90 abduction and 48 er and 40 IR at 80 abd all limited by pain and firm endfeel. - ext rotation lag test. - sulcus test, - apprehension test. Shoulder strength is 4/5 L without obvious weakness. - Balance/Special Test Scores Oswestry Neck Score: 8 - Goals Goal 1:: AROM L shoulder flexion 150, abduction 140, er 60 and IR to L4 Goal Time Frame: 4-6 Weeks Goal 2:: Patient feel 50% better overall in shoulderROM and pain 3/10 at worst. Goal Time Frame: 4-6 Weeks Goal 3:: Pateint able to dress self without pain Goal Time Frame: 4-6 Weeks Goal 4:: sleep without waking at night Goal Time Frame: 4-6 Weeks - Rehabilitation Potential Physical Therapy Diagnosis: Likely L frozen shoulder with limited AROM. Rehabilitation Potential: Fair - Anticipated Interventions Patient/Client Instruction: Educate patient on: Condition, Plan of Care For the Purpose of:: To decrease pain, To increase ROM, To improve nutrient delivery to tissue, To improve muscle performance and motor function, To increase tolerance to activity/condition/position, To improve ability of physical actions for home/community/work/leisure Therapeutic Exercise to Include: Strength training, Flexibilty training, Passive ROM, Active ROM For the Purpose of:: To decrease pain, To increase ROM, To improve nutrient delivery to tissue Manual Therapy Techniques to Include: Mobilization, Passive ROM, Soft tissue mobilization For the Purpose of:: To increase ROM Thank you for the opportunity to evaluate your patient. For Medicare and Medicare HMO plans, please review the plan of care and approve it. It will need to be FAXED BACK to us at [phone] for Medicare purposes. For Medicare only, by signing this I certify the plan of care. Please let me know if there are questions or concerns regarding this plan of care. Physician Signature: Date:
--- NOTE | 2022-09-21 10:29 | HP.PTREVAL ---
Dr. Siva Foreman MD, It has been my pleasure to treat OLGA LOPEZ over the last 5 visits for cervical DDD. Please see the progress note below for an update on the physical therapy plan of care! Subjective: I can feel it on furthest stretches above head.98% better overall. HEP going well. Activities are pretty normal, working around house really well.No f/u with Ahsan Molina. Doing really well. Objective/Function: 155 flexion 75 er today L UE. strength is near symmetrical. Pt showing ineterest in gym ex for overall health but knows not how to start. Plan Plan: one more visit to teach gym program. rows, pull downs, shoulder press, leg pressm hip abd, knee ext, knee flexion, bike or elliptical and give list and d/c Balance/Gait/Functional tests - Balance/Special Test Scores Oswestry Neck Score: 8 Goals Goal 1:: AROM L shoulder flexion 150, abduction 140, er 60 and IR to L4 Goal Time Frame: 4-6 Weeks Goal Progress: Goal Met Goal 2:: Patient feel 50% better overall in shoulderROM and pain 3/10 at worst. Goal Time Frame: 4-6 Weeks Goal Progress: Goal Met Goal 3:: Pateint able to dress self without pain Goal Time Frame: 4-6 Weeks Goal Progress: Goal Met Goal 4:: sleep without waking at night Goal Time Frame: 4-6 Weeks Goal Progress: Goal Met Goal 5:: i full body program including shoulder in gym to help maintain overall health. Goal Time Frame: 2 Weeks Goal Progress: NEW GOAL Anticipated Interventions Patient/Client Instruction: Educate patient on: Condition, Plan of Care For the Purpose of:: To decrease pain, To increase ROM, To improve nutrient delivery to tissue, To improve muscle performance and motor function, To increase tolerance to activity/condition/position, To improve ability of physical actions for home/community/work/leisure Therapeutic Exercise to Include: Strength training, Flexibilty training, Passive ROM, Active ROM For the Purpose of:: To decrease pain, To increase ROM, To improve nutrient delivery to tissue Manual Therapy Techniques to Include: Mobilization, Passive ROM, Soft tissue mobilization For the Purpose of:: To increase ROM Please do not hesitate to contact me at [phone] by phone or if you have questions or concerns regarding this new plan of care! Sincerely, Vishal Bell, DPT, OCS, CSCS
--- NOTE | 2022-10-05 13:03 | HP.PTDCSUM ---
It has been my pleasure to treat OLGA LOPEZ referred by Dr. Siva Foreman MD, with the diagnosis of cervical DDD for a total of 6 visit(s). Discharge Date: 10/05/22 Please see the following information for a summary of their discharge status. Subjective: Signed up and ready to go, shoulder doing well although still poainful at times, it may never go away. L arm shoulder. Pain Intensity (Out of 10): 0 % Improvement: 98 Objective/Function: 155 flexion, 75 er today, still hurts to end range stretch but transient. Not holding him back at home. Needed instruct on gym ex and CV work and list given today after instruct. Goal 1:: AROM L shoulder flexion 150, abduction 140, er 60 and IR to L4 Goal Progress: Goal Met Goal 2:: Patient feel 50% better overall in shoulderROM and pain 3/10 at worst. Goal Progress: Goal Met Goal 3:: Pateint able to dress self without pain Goal Progress: Goal Met Goal 4:: sleep without waking at night Goal Progress: Goal Met Goal 5:: i full body program including shoulder in gym to help maintain overall health. Goal Progress: Goal Met Plan: d/c, pt to [facility] in [place] d[place] via HEP, BTB vended. If there are questions or concerns regarding this patient's physical therapy, please feel free to call me at [phone]. Thank you for the referral of this patient. Sincerely, Vishal Bell, DPT, OCS, CSCS Balance/Gait/Functional tests - Balance/Special Test Scores Oswestry Neck Score: 8 Quick DASH Score: 4.5450
== END 2022-10-05 19:00 | disposition home or self-care (01) ==
LOC: PT 12:00
PROVIDERS: PCP Family Medicine; Referring Provider Family Medicine; Visit Provider Family Medicine
DX: M50.30 Other cervical disc degeneration, unspecified cervical region (principal)
CPT/HCPCS: 97110; 97161; 97164

== ENCOUNTER 2024-02-24 10:13 | Emergency (ER) | payer OTHER, SELFPAY ==
[2024-02-24 10:13] VITALS: BP 157/100; PULSE 73; RESP 14; TEMP 37.2; O2SAT 100; BMI 26.1
[2024-02-24 11:03] LABS: Absolute Neutrophil Count 5.8 X10^3/uL (2.0-7.7); Basophil# 0.07 X10^3/uL; Basophil% 0.8 % (0-1); Eosinophil# 0.03 X10^3/uL; Eosinophils% 0.4 % (0-5); Hematocrit 46.1 % (40-54); Hemoglobin 15.8 g/dL (13.0-16.5); Mean Corp Hgb Conc 34.3 g/dL (32-36); Mean Corpuscular Hgb 30.2 pg (27.0-32.0); Mean Platelet Vol. 11.2 fl (6.2-12.0); Monocyte# 0.39 X10^3/uL; Monocyte% 4.6 % (0-10); NRBC Flagged by Analyzer 0 % (0-5); Neutrophil # 5.78 X10^3/uL (2.7-7.7); Neutrophil % 68.7 % (47-70); Platelet Count 303 K/mm3 (150-450); RBC Distribution Width CV 12.7 % (11.6-14.6); RBC Distribution Width SD 40.7 fl (35.1-43.9); Red Blood Count 5.24 M/mm3 (4.6-6.2); White Blood Count 8.4 K/mm3 (4.4-11.0)
[2024-02-24 11:15] LABS: D-Dimer Quantitative (DVT/PE) 0.43 FEU/ug/m (0.27-0.49)
[2024-02-24 11:31] LABS: ALB/GLOB Ratio 1.1 RATIO (0.9-2.4); AST(SGOT) 30 U/L (15-37); Alanine Aminotransfer ALT/SGPT 28 U/L (16-61); Albumin, Serum 4.1 g/dL (3.2-5.0); Alkaline Phosphatase 80 U/L (45-117); Anion Gap 5 (5-15); BUN 11 mg/dL (7-18); BUN/Creat Ratio 11.1 RATIO (10-20); Calcium,Total 8.7 mg/dL (8.5-10.1); Chloride 108 mmol/L (98-107); Creatinine, Serum 0.99 mg/dL (0.70-1.30); EST Glomerular Filtration Rate 81 mL/min (>60); Est Glom Filt Rate - Afr Amer 98 mL/min (>60); Estimated Creatinine Clearance 75.81 ml/min; Globulin 3.7 g/dL (2.2-4.2); Glucose 125 mg/dL (74-106); Lipase 33 U/L (13-75); Potassium 4.3 mmol/L (3.5-5.1); Protein, Total 7.8 g/dL (6.4-8.2); Sodium Level 135 mmol/L (136-145); Troponin-I HS (w/2H Reflex) 28 pg/mL (3.0-78.0)
[2024-02-24 12:02] LABS: BNP,B-Type NATRIURETIC PEPTIDE 30.6 pg/mL (0-100)
[2024-02-24 12:14] VITALS: BP 137/84; PULSE 59; RESP 14; O2SAT 100
[2024-02-24 12:55] LABS: Reflex Troponin-HS? (from REC) Y
[2024-02-24 13:23] LABS: Troponin-I HS 58 pg/mL (3.0-78.0)
[2024-02-24 14:08] VITALS: BP 130/70; PULSE 58; RESP 22; TEMP 37.2; O2SAT 98
== END 2024-02-24 14:22 | disposition home or self-care (01) ==
PROVIDERS: Emergency Provider Surgery; PCP Family Medicine; Visit Provider Surgery
DX: R07.9 Chest pain, unspecified (principal); R10.13 Epigastric pain; F17.200 Nicotine dependence, unspecified, uncomplicated; Z86.16 Personal history of COVID-19; Z80.0 Family history of malignant neoplasm of digestive organs; Z87.19 Personal history of other diseases of the digestive system
CPT/HCPCS: 71045; 80053; 83690; 83880; 84484; 85025; 85379; 93005; 99284; A4216

== ENCOUNTER 2024-03-27 14:41 | Observation (INO) | payer OTHER, SELFPAY ==
[2024-03-27] VITALS (7 sets, daily range): BP systolic 95–146; BP diastolic 73–82; PULSE 51–70; RESP 16–18; TEMP 36.2–36.6; O2SAT 99–100; BMI 24.3
--- NOTE | 2024-03-27 10:39 | STE_ITS ---
Reason For Study: REFLUX Stress Results Protocol: Baseline Maximum Predicted HR: 158 bpm Target HR: 134 bpm % Maximum Predicted HR: 95 % Heart Stage Duration Rate BP Comment (mm:ss) (bpm) BASELINE 71 142/82 STAGE 1 3:00 97 148/64 STAGE 2 3:00 133 150/80STATES LUNGS BURNING, MID CHEST BURNING SENSATION, SOB STAGE 3 1:31 150 / INCREASED FATIGUE, BURNING AND SOB SYMPTOMS RESOLVED [address] GIVENS AT THE BEDSIDE. RECOVERY 76 152/80ECG RETURED TO BASELINE. #22G/INSYTE LEFT AC X1 ATTEMPT Stress Duration: 7:31 mm:ss Maximum Stress HR: 150 bpm Baseline Echocardiogram Findings Stress Echo Wall motion Data Resting WM Intermediate WM Stress WM ECHO/Stress Test Echo w/o Contrast Interpretation Summary Exercise stress echo. 64-year-old male with a history of chest pain. Stress EKG. Resting EKG demonstrates sinus bradycardia with a rate of 59 bpm re sting blood pressure is 142/82 mmHg. The patient exercised according to the Yohan protocol for total duration of 7 minutes and 30 seconds completing 1 minute and 30 seconds into stage III of the Yohan protocol. The maximum heart rate attained was 153 bpm which was 96% of max impacted heart rat e the maximum workload was 10.1 metabolic equivalents. At rest there were nonspecific ST vasquez ges noted we did not denote any ischemia. During stage III of the Yohan protocol there was approxima tely 1.[address] depression noted in leads II, III and aVF with premature ventricul ar complexes noted and then during recovery the EKG changes became more horizontal in the inferola teral leads with premature ventricular complexes peaked T waves and then 3-1/2 minutes into renea very there were downsloping ST depressions of approximately 2.5 mm noted in leads II, III and a VF and 1.3 mm noted in lead V5 and V6. The patient also experienced chest burning during the exerti on which eventually resolved 10 minutes into recovery. Stress echocardiogram. The resting echocardiogram demonstrated preserved ejecti on fraction of 60% no wall motion abnormalities were noted. At peak exercise there was severe hypokin esis noted of the mid to distal anterior wall apex the mid lateral wall and the distal lateral wall. The above is suggestive of extensive ischemia noted in the anterior and lateral wall distrib utions. The inferior wall remained hypercontractile. The peak ejection fraction was approximately 45 %. Conclusion: Abnormal exercise stress echocardiogram with evidence of anterior, apical and l ateral ischemia at a moderate workload. Clinical angina noted. EKG changes diagnostic of ischemia noted. Symptoms recovered with rest. Ordering Physician: Tobin Cornell Referring Physician: Tobin Cornell Performed By: Inés Larsen RDCS
--- NOTE | 2024-03-27 12:09 | PCM.CONS.C ---
Assessment & Plan Assessment/Plan (1) Abnormal stress echo: PLAN: He does present with chest burning and has a markedly abnormal stress echo at a moderate workload. At this juncture I would strongly urged that we evaluate the above with a left heart catheterization. The risk benefits alternatives have been explained to him he understands and agrees to proceed. Depending on the findings further recommendations will be made. Thank you for allowing me to participate in the care of your patient. Please don't hesitate to call if any issues arise. HPI Consult Data Date of Consult: 03/27/24 HPI Narrative HPI Narrative: OLGA LOPEZ, is a 64 M who presents to the emergency room approximately a month ago complaining of intermittent chest discomfort. He apparently had been having this a few days preceding his admission to the emergency room. He says that he went to eat some [employer] and woke up with epigastric discomfort. He became sweaty and then the burning persisted. He presented to the emergency room where he was evaluated. Blood work was done including an EKG which demonstrated normal sinus rhythm with no acute changes with a rate of 67 bpm. Blood work was noted to be unremarkable with an initial high-sensitivity troponin of 28 and a follow-up of 58. Natruretic peptide was noted to be normal. He was discharged home to have an outpatient stress test. He had this done this morning and it demonstrated significant ST depression, chest burning, and evidence of anterolateral apical and lateral wall motion abnormalities. It was decided that due to the marked positivity of the above he should undergo evaluation. FORMERLY [facility] Medical History COVID-19 Diverticulosis of colon Diverticulitis Anxiety Family history of colon cancer Home Medications ?Medication ?Instructions ?Recorded ?Last Taken ?Type NK 02/24/24 Unknown History Allergy/AdvReac Type Severity Reaction Status Date / Time No Known Allergies Allergy Verified 02/24/24 10:14 Family History Sister Breast cancer Colon cancer Mother Cancer Unknown type Diabetes Father CAD (coronary artery disease) Heart disease High cholesterol Surgical History S/P appendectomy Status post colectomy Hx of hernia repair Hx of colonoscopy Social History Smoking Status: Current every day smoker tobacco type: cigarettes quit status: considering quitting alcohol intake: current alcohol intake frequency: a few times a month substance use type: does not use caffeine: Yes what type of physical activity do you participate in: none frequency: does not exercise ROS Constitutional Constitutional: Denies fever(s) or weight loss Eyes Eyes: Reports systems reviewed and no addt'l complaints, except as documented ENT HEENT: Reports systems reviewed and no addt'l complaints, except as documented Cardiovascular Cardiovascular: Reports chest pain at rest, chest pain with activity and dyspnea at rest; Denies dyspnea on exertion, edema, palpitations or paroxysmal nocturnal dyspnea Respiratory/Chest Respiratory/Chest: Denies dyspnea on exertion, productive cough, shortness of breath at rest or shortness of breath with exertion Gastrointestinal Gastrointestinal: Denies change in bowel habits, nausea, vomiting or weight changes Genitourinary Genitourinary: Denies difficulty urinating Musculoskeletal Musculoskeletal: Denies joint stiffness or muscle weakness Integumentary Integumentary: Denies lesions Neurologic Neurologic: Denies dizziness or syncope Psychiatric Psychiatric: Denies anxiety Endocrine Endocrinology: Denies excessive sweating or fatigue Hematologic/Lymphatic Hematologic/Lymphatic: Denies anemia Allergic/Immunologic Allergic/Immunologic: Denies seasonal rhinorrhea Physical Exam Const alert, oriented x3 and no apparent distress General Appearance: cooperative HEENT hearing grossly normal bilaterally Head and Scalp: atraumatic Eyes EOMs intact bilaterally Neck General: normal visual inspection Chest inspection of chest normal and palpation of chest normal Resp normal respiratory effort Auscultation: clear to auscultation bilaterally Cardio regular rate, regular rhythm, S1 normal heart sound and S2 normal heart sound Jugular Venous Distention: JVD GI normal to inspection, nondistended, normoactive bowel sounds Extremity normal capillary refill and no pedal edema Peripheral Pulses: Yes pulses 2+ throughout and femoral pulses present Skin no rashes or lesions noted Neuro oriented x3 and CN's II-XII intact bilaterally Psych Appearance: grossly normal and appropriate Risk Stratification Risk Stratification Applicable: No Cardiology Labs/Tests Rhythm: EKG: ECHO: Stress Test: Cardiac Cath: PCI: CT Surgery: Holter monitor: EPS: PPM: CXR: Chest CT Scan:
--- NOTE | 2024-03-27 13:42 | CL.D_ITS ---
Patient Name: OLGA LOPEZ Study Date: 03/27/2024 Performing: Emiliano Mccurdy MD Ht: 68 inches 172.72 cm : 1960 Wt: 160.25 lbs 72.69 kg Age: 64 Gender: male BSA: 1.86 PROCEDURE(S) PERFORMED [id number])LHC/COR/LV CLINICAL PROFILE AND INDICATIONS Indications: Suspected CAD Heart Failure: None Stress/Imaging Stress Echocardiogram: Yes Result: Positive High RiskStress Echocardiogram: Positive High Risk CAD Presentations: Unstable angina. CONCLUSIONS Severe focal three-vessel disease involving the proximal mid and mid to distal left anterior descending artery, mid circumflex artery, and proximal right coronary artery. RECOMMENDATIONS Consider multivessel PCI. The likely target area for the MCCONNELL graft may be fraught. DESCRIPTION OF PROCEDURE The patient arrived to the procedure lab. The risks and benefits of the procedure as well as a full description of our services here and current unavailability of surgical backup were fully explained to the patient and/or their significant other prior to the catheterization. The Timeout was completed, verifying the correct patient and procedure. The patient's procedural site was prepped and draped in the usual fashion. Local anesthetic was given subcutaneously to right radial region with Lidocaine 2%. Using a modified Seldinger technique, arterial access was obtained via the right radial artery, a 6Fr sheath was inserted. Left Coronary Artery selective angiography was performed in multiple views using a 5 Fr. 4.0 Vance catheter. Right Coronary Artery selective angiography was then performed in multiple views using a 5 Fr. 4.0 Vance catheter. Left Ventriculography was performed in SMITH projection using a 5 Fr. Pigtail catheter. LV to AO pullback pressures were then recorded. CORONARY ANGIOGRAPHY DOMINANCE: Right Dominant LEFT HEART ASSESSMENT Left Ventricular Ejection Fraction: by LV Gram 60 % Normal LV wall motion Normal Left Ventricular systolic function LEFT MAIN: Proximal 10% stenosis LEFT ANTERIOR DESCENDING ARTERY: Medium size vessel with proximal tapering 95% stenosis and a moderate mid segment 80% stenosis in the mid to distal focal 70 to 80% stenosis. CIRCUMFLEX ARTERY: Focal mid segment 80% stenosis with a continuation to the obtuse marginal branch RAMUS: No significant disease noted RIGHT CORONARY ARTERY: Large dominant vessel with proximal 70% eccentric stenosis mid 40 to 50% stenosis and distal mild disease. COMPLICATIONS PROCEDURE MEDICATIONS Versed 1 mg IV Fentanyl 50 mcg IV Versed 1 mg IV Aspirin (325mg) 1 Tabs PO 03/27/2024 12:50:39 Brilinta 180 mg PO @ 03/27/2024 13:37:45 Heparin given IA 03/27/2024 13:16:32 Heparin 6000 unit(s) IV 03/27/2024 13:40:38 Verapamil 2.5mg, Ntg 100mcgs, 3000 units of Heparin given IA 03/27/2024 13:16:32 SUMMARY OF HEMODYNAMIC DATA Time AIR REST ECG 12:36:59 AO 131/75 (100) SA 13:22:30 LV 121/10, 18 13:29:59 LV 124/13, 22 13:30:00 LV 101/3, 21 13:31:14 LV 130/9, 23 13:31:23 LVp 128/6, 19 13:31:29 AOp 127/69 (93) 13:31:36 Signed By Emiliano Mccurdy MD On 03/27/2024 13:41:43 Emiliano Mccurdy MD
[2024-03-27 14:55] LABS: ACT Activated Clotting Time 302 sec (74-137)
[2024-03-27 14:55] LABS: ACT Activated Clotting Time 273 sec (74-137)
[2024-03-27 14:55] LABS: ACT Activated Clotting Time 273 sec (74-137)
--- NOTE | 2024-03-27 15:04 | CL.I_ITS ---
Patient Name: OLGA LOPEZ Study Date: 03/27/2024 Performing: Aislinn Carbajal MD Ht: 68 inches 172.72 cm : 1960 Wt: 160.25 lbs 72.69 kg Age: 64 Gender: male BSA: 1.86 PROCEDURE(S) PERFORMED IC12-([id number])JONATHAN W/WO PTCA, SINGLE CORONARY ARTERY IC12-([id number])JONATHAN W/WO PTCA, SINGLE CORONARY ARTERY CLINICAL PROFILE AND CO-MORBIDITIES Indications: Suspected CAD Heart Failure: None Stress/Imaging Stress Echocardiogram: Yes Result: Positive High Risk Stress Echocardiogram: Positive High Risk CAD Presentations: Unstable angina. CONCLUSIONS Successful PTCA/JONATHAN Prox LAD using [place] 3.0x18 mm, post-dilated using 3.5 mm balloon Successful JONATHAN distal Mid LAD using [place] 2.5x8 mm Successful JONATHAN Mid LAD using [place] 3.0x30 mm Successful JONATHAN Prox LCX using [place] Ship[place] 3.0x22mm, post-dilated using 3.25 mm balloon RECOMMENDATIONS ASA Indefinitley P2Y12 inhibitors for atleast 6 months Staged PCI to RCA DESCRIPTION OF PROCEDURE The patient arrived to the procedure lab. The risks and benefits of the procedure as well as a full description of our services here and current unavailability of surgical backup were fully explained to the patient and/or their significant other prior to the catheterization. The Timeout was completed, verifying the correct patient and procedure. The patient's procedural site was prepped and draped in the usual fashion. Local anesthetic was given subcutaneously to right radial region with Lidocaine 2% Using a modified Seldinger technique,arterial access was obtained via the right radial artery, a 6Fr sheath was inserted. Left Coronary Artery selective angiography was performed in multiple views using a 5 Fr. 4.0 Starks catheter. Right Coronary Artery selective angiography was then performed in multiple views using a 5 Fr. 4.0 Starks catheter. Left Ventriculography was performed in SMITH projection using a 5 Fr. Pigtail catheter. LV to AO pullback pressures were then recorded.The images were reviewed and options discussed. A decision was then made to proceed with an Intervention, IVUS or other adjunct procedure. XB 3.0 Guide catheter was inserted and engaged into the LCA. Emerge 2.50x15 Balloon catheter was inserted. PTCA balloon inflated at 6 atms for 4 secs. PTCA balloon inflated at 6 atms for 4 secs. PTCA balloon inflated at 6 atms for 6 secs. Angiogram performed post balloon dilatation. [place] 2.5x8 Drug Eluting stent was inserted. Angiogram performed post stent deployment. [place] Emerge 2.50x8 Balloon catheter was inserted. Post Stent PTCA balloon inflated at 12 atms for 4 secs. [place] 3.0x30 Drug Eluting stent was inserted. Angiogram performed post stent deployment. NC Emerge 3.00x20 Balloon catheter was inserted. Angiogram performed post balloon dilatation. [place] 3.0x18 Drug Eluting stent was inserted. NC Emerge 3.50 x 12 Balloon catheter was inserted. Angiogram performed post balloon dilatation. NC Emerge 2.50x8 Balloon catheter was inserted. Runthrough Guide wire was repositioned to the Circumflex [place] 3.0x22 Drug Eluting stent was inserted. Angiogram performed post stent deployment. NC Emerge 3.25x20 Balloon catheter was inserted. Angiogram performed post balloon dilatation. The arterial sheath was pulled and a TR Band was applied for hemostasis w/ 8ml air INTERVENTION INFORMATION LESION SITE: LAD (Proximal) Lesion Complexity: Non-High/Non-C, culprit lesion: Yes, lesion length: 16 mm Pre Stenosis: 95 % Pre intervention JOSIAH flow: 3 PROCEDURE: Drug Eluting Stent with pre and post dilatation Post Stenosis: 0 % Post intervention JOSIAH flow: 3 Lesion Devices: Cordis 6 Fr XB3.0 100cm Guide Catheter Terumo .014 180cm Runthrough Extra Floppy straight Ricky Sci EMERGE MR 2.50x15 BALLOON Medtronic 3.0 x 18 DIEGO FRONTIER JONATHAN Ricky Sci NC EMERGE MR 3.50x12 BALLOON LESION SITE: LAD (Distal) Lesion Complexity: Non-High/Non-C, culprit lesion: No, lesion length: 7 mm Pre Stenosis: 80 % Pre intervention JOSIAH flow: 3 PROCEDURE: Drug Eluting Stent with post dilatation Post Stenosis: 0 % Post intervention JOSIAH flow: 3 Lesion Devices: Cordis 6 Fr XB3.0 100cm Guide Catheter Terumo .014 180cm Runthrough Extra Floppy straight Medtronic 2.50 x 08 DIEGO FRONTIER JONATHAN Ricky Sci NC EMERGE MR 2.50x08 BALLOON LESION SITE: LAD (Mid) culprit lesion: No, Lesion Complexity: High/C, lesion length: 28 mm Pre Stenosis: 80 % Pre intervention JOSIAH flow: 3 PROCEDURE: Drug Eluting Stent with post dilatation Post Stenosis: 0 % Post intervention JOSIAH flow: 3 Lesion Devices: Cordis 6 Fr XB3.0 100cm Guide Catheter Terumo .014 180cm Runthrough Extra Floppy straight Medtronic 3.0 x 30 DIEGO FRONTIER JONATHAN Ricky Sci NC EMERGE MR 3.00x20 BALLOON LESION SITE: Circumflex (Proximal) culprit lesion: No, Lesion Complexity: High/C, lesion length: 20 mm Pre Stenosis: 80 % Pre intervention JOSIAH flow: 3 PROCEDURE: Drug Eluting Stent with post dilatation Post Stenosis: 0 % Post intervention JOSIAH flow: 3 Lesion Devices: Cordis 6 Fr XB3.0 100cm Guide Catheter Terumo .014 180cm Runthrough Extra Floppy straight Medtronic 3.0 x 22 DIEGO FRONTIER JONATHAN Ricky Sci NC EMERGE MR 3.25x20 BALLOON COMPLICATIONS No Complications PROCEDURE MEDICATIONS Versed 1 mg IV Fentanyl 50 mcg IV Versed 1 mg IV Versed 2 mg IV Fentanyl 50 mcg IV Versed 1 mg IV Versed 1 mg IV Fentanyl 25 mcg IV Aspirin (325mg) 1 Tabs PO 03/27/2024 12:50:39 Brilinta 180 mg PO @ 03/27/2024 13:37:45 Heparin given IA 03/27/2024 13:16:32 Heparin 6000 unit(s) IV 03/27/2024 13:40:38 Heparin 2000 unit(s) IV 03/27/2024 13:53:27 Heparin 2000 unit(s) IV 03/27/2024 14:07:28 Nitro 100 mcg IC 03/27/2024 13:49:26 Nitro 200 mcg IC 03/27/2024 14:29:37 Verapamil 2.5mg, Ntg 100mcgs, 3000 units of Heparin given IA 03/27/2024 13:16:32 IV Bolus: .9 NaCl 250 ml total 03/27/2024 14:34:25 SUMMARY OF HEMODYNAMIC DATA Time AIR REST AO 131/75 (100) SA 13:22:30 LV 121/10, 18 13:29:59 LV 124/13, 22 13:30:00 LV 101/3, 21 13:31:14 LV 130/9, 23 13:31:23 LVp 128/6, 19 13:31:29 AOp 127/69 (93) 13:31:36 AO 126/79 (98) 13:44:32 AO 99/65 (82) 13:50:51 AO 97/65 (80) 13:50:57 AO 114/72 (90) 14:04:25 ECG 15:00:22 AIR REST 15:00:22 Signed By Aislinn Carbajal MD On 03/27/2024 15:03:47 Aislinn Carbajal MD
--- NOTE | 2024-03-27 15:23 | CRPHASE1 ---
Patient Communication Patient Information Former Patient:: Phase I PHII Cardiac Rehab Discussed with Patient:: Yes Guide to Cardiac Rehab Given to Patient:: Yes Cardiac Rehab Facility Choice List Given to Patient:: Yes Communication to Cardiac Rehab Cotton Cleaner:: Aislinn Carbajal Medical/Surgical History Medical History GA:: No Angina:: No CAD:: Yes Congestive Heart Failure: Cardiomyopathy:: No Valve Disease/Replacement:: No Pulmonary:: No COPD:: No Asthma:: No SETH:: No Diabetes:: No Diabetes Type I:: No Diabetes Type II:: No Hypertension:: No Dyslipidemia:: No Arrhythmias:: No EPS:: No CVA/TIA: CEA:: No PE:: No DVT:: No PVD:: No PAD:: No Arthritis:: No GI:: No GERD:: Yes Cancer:: No Renal:: No Thyroid:: No Depression:: No Anxiety:: No Surgical History CABG: No PTCA:: Yes ICD:: No Pacemaker:: No Orthopedic:: No Cardiac Rehabilitation Info Program Information Cardiac Rehabilitation Program Information: Cardiac Rehab The cardiac rehab team at [facility] consists of highly skilled exercise physiologists, nurses, respiratory therapists and physicians working together with you. Our purpose is to help you have a full recovery and achieve the goals you set for yourself. Over the years many of our patients have returned to activities they assumed they would never do again! We can help restore your confidence and motivation to make lifestyle changes that can have a significant impact on your health and quality of life! We can help answer questions and concerns you may have about exercise, lifestyle, medications, diet, stress and anxiety which are common following a hospitalization. WE monitor ECG and vital signs during exercise and discuss your progress with you and report to your physician(s). Cardiac Rehab is proven to help reduce readmissions, improve functional capacity and lower recurrence of problems with your heart. Our Cardiac Rehab program is Certified by the [place] [employer]monary [employer] (AACVPR) and Accredited by the [employer] through our [facility]. You can contact us at . We invite you to call us with your questions or to get started in our program. If you have other questions or concerns be sure to ask your physician/provider during your follow-up visit. WE look forward to seeing you!
--- NOTE | 2024-03-27 15:24 | CRPH1.INSTRU ---
General Education Discussed with Patient CAD and cardiac anatomy and function:: Patient communicates acknowledgment Explanation of diagnoses and procedures:: Patient communicates acknowledgment Sign/Symptoms of MO:: Patient communicates acknowledgment Antiplatelet therapy: Patient communicates acknowledgment Proper use of NTG-SL: Patient communicates acknowledgment Emergency procedures and activation of EMS: Patient communicates acknowledgment Compliance of all prescribed medications: Patient communicates acknowledgment Smoking Risk Factors Patient Nicotine/Smoking Risk Factors Are:: Cigarettes Response Code Nicotine/Smoking Response Code:: Patient communicates acknowledgment Dyslipidemia Recommendations Recommendations Include:: Lipid profile not available Overweight/Obesity Risk Factors Patient Overweight/Obesity Risk Factors Are:: BMI Normal [18-25 & < 65 years old] Recommendations Recommendations Include:: Exercise 5-7 times/week Response Code Overweight/Obesity:: Patient communicates acknowledgment Hypertension Risk Factors Patient Hypertension Risk Factors Are:: No documented hx of HTN Heart Disease Risk Factors Patient Heart Disease Risk Factors Are:: Family history of heart disease < 65 years old and Previous cardiac event Recommendations Recommendations Include:: Educated family members of their risk and Educated family members of importance of prevention of heart disease Response Code Heart Disease Response Code:: Patient communicates acknowledgment Diabetes Risk Factors Patient Diabetes Risk Factors Are:: No documented hx of diabetes Metabolic Syndrome Recommendations Recommendations Include:: Does not meet criteria Sedentary Recommendations Recommendations Include:: Benefits of regular exercise and Monitored Outpatient Cardiac Rehab Response Code Sedentary Response Code:: Patient communicates acknowledgment Stress Risk Factors Patient Stress Risk Factors Are:: Patient denies stress as a risk factor
[2024-03-27] MEDS: 0.9% Normal Saline (1000mL) 1,000 ML 150 ML IV (15:34)
--- NOTE | 2024-03-27 16:04 | EKG12_ITS ---
Test Reason : POST CATH Blood Pressure : */* mmHG Vent. Rate : 47 BPM Atrial Rate : 47 BPM P-R Int : 186 ms QRS Dur : 92 ms QT Int : 434 ms P-R-T Axes : 79 70 77 degrees QTcB Int : 384 ms Sinus bradycardia Otherwise normal ECG Confirmed by TOSHA BUENROSTRO, EMILIANO ([id number]), editor book TAMMY ROWLEY ([id number]) on 03/28/2024 2:15:03 PM Referred By: Emiliano Mccurdy Confirmed By: EMILIANO MCCURDY MD
[2024-03-27] MEDS: Atorvastatin Calcium 40 MG Tablet PO (20:40)
[2024-03-27] MEDS: Carvedilol 3.125 MG TABLET PO (20:40)
[2024-03-27] MEDS: Clopidogrel Bisulfate 300 MG Tablet PO (20:40)
[2024-03-28 03:00] VITALS: BP 109/62; PULSE 64; RESP 18; TEMP 36.2; O2SAT 97
[2024-03-28 07:40] LABS: Hematocrit 42.1 % (40-54); Hemoglobin 14.4 g/dL (13.0-16.5); Mean Corp Hgb Conc 34.2 g/dL (32-36); Mean Corpuscular Hgb 30.1 pg (27.0-32.0); Mean Corpuscular Volume 87.9 fL (80-94); Mean Platelet Vol. 10.5 fl (6.2-12.0); Platelet Count 229 K/mm3 (150-450); RBC Distribution Width CV 12.5 % (11.6-14.6); Red Blood Count 4.79 M/mm3 (4.6-6.2); White Blood Count 8.8 K/mm3 (4.4-11.0)
[2024-03-28 08:07] LABS: ALB/GLOB Ratio 1.3 RATIO (0.9-2.4); AST(SGOT) 16 U/L (15-37); Alanine Aminotransfer ALT/SGPT 22 U/L (16-61); Albumin, Serum 3.4 g/dL (3.2-5.0); Alkaline Phosphatase 69 U/L (45-117); Anion Gap 5 (5-15); BUN 13 mg/dL (7-18); BUN/Creat Ratio 14.5 RATIO (10-20); Calcium,Total 8.6 mg/dL (8.5-10.1); Chloride 111 mmol/L (98-107); Cholesterol 154 mg/dL (200); EST Glomerular Filtration Rate 91 mL/min (>60); Est Glom Filt Rate - Afr Amer 110 mL/min (>60); Estimated Creatinine Clearance 82.33 ml/min; Globulin 2.7 g/dL (2.2-4.2); Glucose 117 mg/dL (74-106); High Density Lipoprotein 29 mg/dL; Potassium 3.8 mmol/L (3.5-5.1); Protein, Total 6.1 g/dL (6.4-8.2); Sodium Level 139 mmol/L (136-145); Triglycerides 96 mg/dL; Very Low Density Lipoprotein 19 mg/dL (5-40)
[2024-03-28 08:08] VITALS: O2SAT 93
[2024-03-28 09:00] VITALS: BP 133/76; PULSE 63; RESP 16; TEMP 37.2; O2SAT 99
--- NOTE | 2024-03-28 09:16 | PCM.PN.CARD ---
Subjective Subjective Patient seen and evaluated. Appears to be doing well. Objective Data Vital Signs: Vital Signs Temp Pulse Resp BP Pulse Ox O2 Del Method 97.1 F L 64 18 109/62 97 Room Air 03/28/24 03:00 03/28/24 03:00 03/28/24 03:00 03/28/24 03:00 03/28/24 03:00 03/28/24 03:00 Oxygen Delivery Method Room Air Weight: 160 lb 4 oz Body Mass Index (BMI) 24.3 Intake & Output: Intake and Output for Last 24 Hours 03/26/24 03/27/24 03/28/24 23:59 23:59 23:59 Intake Total 1000 / 1450 800 / 800 Balance 1000 / 1450 800 / 800 Lab / Micro Data 03/28/24 06:34 03/28/24 06:34 Labs: Laboratory Results - last 24 hr 03/27/24 13:47: Activated Clotting Time 273 H 03/27/24 14:18: Activated Clotting Time 302 H 03/27/24 14:41: Activated Clotting Time 273 H 03/28/24 06:34: WBC 8.8, RBC 4.79, Hgb 14.4, Hct 42.1, MCV 87.9, MCH 30.1, MCHC 34.2, RDW Std Deviation 40.0, RDW Coeff of Aixa 12.5, Plt Count 229, MPV 10.5, Sodium 139, Potassium 3.8, Chloride 111 H, Carbon Dioxide 23.0, Anion Gap 5, BUN 13, Creatinine 0.90, Estim Creat Clear Calc 82.33, Est GFR (MDRD) Af Amer 110, Est GFR (MDRD) Non-Af 91, BUN/Creatinine Ratio 14.5, Glucose 117 H, Calcium 8.6, Total Bilirubin 0.50, AST 16, ALT 22, Alkaline Phosphatase 69, Total Protein 6.1 L, Albumin 3.4, Globulin 2.7, Albumin/Globulin Ratio 1.3, Triglycerides 96, Cholesterol 154, LDL Cholesterol 106, VLDL Cholesterol 19, HDL Cholesterol 29 L Cardiology Labs/Tests 03/28/24 06:34: WBC 8.8, RBC 4.79, Hgb 14.4, Hct 42.1, MCV 87.9, MCH 30.1, MCHC 34.2, Plt Count 229, MPV 10.5, Sodium 139, Potassium 3.8, Chloride 111 H, Carbon Dioxide 23.0, Anion Gap 5, BUN 13, Creatinine 0.90, Est GFR (MDRD) Af Amer 110, Est GFR (MDRD) Non-Af 91, BUN/Creatinine Ratio 14.5, Glucose 117 H, Calcium 8.6, Total Bilirubin 0.50, Triglycerides 96, Cholesterol 154, LDL Cholesterol 106, VLDL Cholesterol 19, HDL Cholesterol 29 L Rhythm: EKG: ECHO: Stress Test: Cardiac Cath: PCI: CT Surgery: Holter monitor: EPS: PPM: CXR: Chest CT Scan: Radiography Diagnostic Testing: Radiology Impression Stress Echocardiogram 03/27/24 10:39 Interpretation Summary Exercise stress echo. 64-year-old male with a history of chest pain. Stress EKG. Resting EKG demonstrates sinus bradycardia with a rate of 59 bpm resting blood pressure is 142/82 mmHg. The patient exercised according to the Yohan protocol for total duration of 7 minutes and 30 seconds completing 1 minute and 30 seconds into stage III of the Yohan protocol. The maximum heart rate attained was 153 bpm which was 96% of max impacted heart rate the maximum workload was 10.1 metabolic equivalents. At rest there were nonspecific ST changes noted we did not denote any ischemia. During stage III of the Yohan protocol there was approximately 1.[address] depression noted in leads II, III and aVF with premature ventricular complexes noted and then during recovery the EKG changes became more horizontal in the inferolateral leads with premature ventricular complexes peaked T waves and then 3-1/2 minutes into recovery there were downsloping ST depressions of approximately 2.5 mm noted in leads II, III and aVF and 1.3 mm noted in lead V5 and V6. The patient also experienced chest burning during the exertion which eventually resolved 10 minutes into recovery. Stress echocardiogram. The resting echocardiogram demonstrated preserved ejection fraction of 60% no wall motion abnormalities were noted. At peak exercise there was severe hypokinesis noted of the mid to distal anterior wall apex the mid lateral wall and the distal lateral wall. The above is suggestive of extensive ischemia noted in the anterior and lateral wall distributions. The inferior wall remained hypercontractile. The peak ejection fraction was approximately 45%. Conclusion: Abnormal exercise stress echocardiogram with evidence of anterior, apical and lateral ischemia at a moderate workload. Clinical angina noted. EKG changes diagnostic of ischemia noted. Symptoms recovered with rest. Ordering Physician: Tobin Cornell Referring Physician: Tobin Cornell Performed By: Inés Larsen RDCS Physical Exam Const alert, oriented x3 and no apparent distress General Appearance: cooperative HEENT hearing grossly normal bilaterally Head and Scalp: atraumatic Eyes EOMs intact bilaterally Neck General: normal visual inspection Chest inspection of chest normal and palpation of chest normal Resp normal respiratory effort Auscultation: clear to auscultation bilaterally Cardio regular rate, regular rhythm, S1 normal heart sound and S2 normal heart sound Jugular Venous Distention: JVD GI normal to inspection, nondistended, normoactive bowel sounds Extremity normal capillary refill and no pedal edema Peripheral Pulses: Yes pulses 2+ throughout and femoral pulses present Skin no rashes or lesions noted Neuro oriented x3 and CN's II-XII intact bilaterally Psych Appearance: grossly normal and appropriate Assessment & Plan Assessment/Plan (1) CAD (coronary artery disease): PLAN: Patient had known significant triple-vessel coronary disease and underwent angioplasty and stenting of the left anterior descending artery and circumflex artery. He has been doing quite well the plan is for him to continue the current medical therapy and then will be discharged to see as an outpatient to be set up for the PCI of the right coronary artery with Dr. Carbajal. (2) Abnormal stress echo: PLAN: He did have a significantly abnormal stress echo which correlated with his coronary disease. He will followed up in the office.
--- NOTE | 2024-03-28 09:22 | DCINST_ITS ---
Discharge Instructions Diet Discharge Diet: No restrictions (You may continue your normal diet.) DC O2, CPAP, BIPAP needs Additional Home O2 Discharge instructions: No Dressing / Incision Discharge Activity: Return to Normal Activity Lifting Restrictions: 10 pounds and also avoid any pushing or pulling for 3 days after your test. Additional Activity Instructions:: You must have someone drive you home. Do not drive until instructed by your doctor. You must have someone stay with you all night after your test. Rest in bed or on the couch until the next morning. Limit the number of times you go up and down stairs the day of your test. Apply pressure to the puncture site if you sneeze or cough. Dressing / Incision Call your doctor if your incision/area has: Increased Pain/ Swelling, Increased Redness, Foul Smelling Discharge and Swelling at the incision site Call your doctor if you observe: Fever of 101 or Higher Additional Dressing/Incision Instructions:: Keep the dressing (bandage) on until the next morning. You may then shower, but do not take a tub bath for 5 days after your test. It is normal to have some tenderness and discomfort at the puncture site. Sometimes bruising also occurs. However, if pain, numbness, or coldness occurs below the puncture site (in your leg, toes, arms or fingers) call your doctor at once. You may have a small, marble sized knot at the puncture site. This is normal. Do not rub it. It will go away in 4-6 weeks. Bleeding can occur from the area where the puncture was done. Blood may spurt or drip from the site. If blood spurts, apply pressure right away to stop bleeding and call 911. Although rare, bleeding into the tissue (hematoma) can also occur. If this happens, a large, firm area goose egg under the skin will appear. If any of these occur, lie down as flat as you can and have someone apply firm pressure to the cath site with a gauze pad or a clean washcloth for 10-15 minutes. Call 911 or go to the Emergency Department. Follow Up Care Please Follow Up With: Heart group When: Office will call you for follow-up. You will also be scheduled for your repeat angioplasty of the remaining vessel. Test Results: Test results from this visit will be discussed in further detail at your follow- up appointment, if applicable. Discharge Plan Admission Admit Date/Time: 03/27/24 14:41 Attending Provider: Emiliano Mccurdy Primary Care Provider: Lokesh Foreman Consulting Providers: Tobin Cornell NP Discharge Orders/Prescriptions Prescriptions: New atorvastatin 40 mg Tablet 40 mg PO QHS Qty: 90 3RF clopidogrel 75 mg Tablet 75 mg PO DAILY Qty: 90 3RF aspirin 81 mg Tablet,Delayed Release (Dr/Ec) 81 mg PO DAILY@0800 Qty: 90 3RF metoprolol succinate [Toprol XL] 25 mg tablet extended release 24 hr 25 mg PO DAILY Qty: 90 3RF Discontinued omeprazole 20 mg capsule,delayed release(DR/EC) 20 mg PO DAILY Referrals / Follow Up: Lokesh Foreman MD [Primary Care Provider] - Disposition Disposition (needs filled in before D/C Order can be placed): Home, Self Care
--- NOTE | 2024-03-28 09:48 | CASEMGMT ---
Patient has order for discharge. RN CM in to discuss needs at discharge. Patient denies needs or help at discharge. Patient had no further questions or concerns.
[2024-03-28] MEDS: Aspirin E.C. 81 MG Tablet PO (10:17)
[2024-03-28] MEDS: Carvedilol 3.125 MG TABLET PO (10:17)
[2024-03-28] MEDS: Clopidogrel Bisulfate 75 MG Tablet PO (10:18)
--- NOTE | 2024-03-28 13:28 | PHA.DC.MR.R ---
Pharmacy IN Med Reconciliation Pharmacy Service has performed discharge medication reconciliation for this patient. Medication education papers prepared, patient discharged when counseling was attempted. Medications reviewed. The patient's discharge medication list was reviewed for discrepancies and discrepancies were resolved. Medications at Discharge Home Medications aspirin 81 mg tablet,delayed release 81 mg PO DAILY@0800 #90 tabs 03/28/24 atorvastatin 40 mg tablet 40 mg PO QHS #90 tabs 03/28/24 clopidogrel 75 mg tablet 75 mg PO DAILY #90 tabs 03/28/24 metoprolol succinate 25 mg tablet,extended release 24 hr (Toprol XL) 25 mg PO DAILY #90 tabs 03/28/24
== END 2024-03-28 09:22 | disposition home or self-care (01) ==
LOC: PCU 15:09
PROVIDERS: Internal Medicine Cardiovascular Disease; Admitting Provider Internal Medicine Cardiovascular Disease; PCP Family Medicine; Referring Provider Internal Medicine Cardiovascular Disease; Visit Provider Internal Medicine Cardiovascular Disease
DX: I25.110 Atherosclerotic heart disease of native coronary artery with unstable angina pectoris (principal); R94.39 Abnormal result of other cardiovascular function study; F17.210 Nicotine dependence, cigarettes, uncomplicated
CPT/HCPCS: 36415; 80053; 80061; 85027; 85347; 92928; 93005; 93017; 93350; 93458; 96360; 96361; 99152; 99153; 99221; J7030; J7040; Q9967; C1725; C1769; C1874; C1887; C1894; C9600; G0378; J3490

== ENCOUNTER → 2024-04-26 | Outpatient (CLI) | payer OTHER, SELFPAY ==
[2024-04-26 11:16] LABS: Absolute Lymphocyte Count 2.14 X10^3/uL (0.83-4.51); Absolute Neutrophil Count 4.6 X10^3/uL (2.0-7.7); Basophil# 0.09 X10^3/uL; Basophil% 1.2 % (0-1); Eosinophil# 0.13 X10^3/uL; Eosinophils% 1.8 % (0-5); Hematocrit 40.8 % (40-54); Hemoglobin 13.3 g/dL (13.0-16.5); Lymphocyte # 2.14 X10^3/ul (0.83-4.51); Lymphocyte % 29.1 % (19-41); Mean Corp Hgb Conc 32.6 g/dL (32-36); Mean Corpuscular Hgb 29.2 pg (27.0-32.0); Mean Corpuscular Volume 89.7 fL (80-94); Mean Platelet Vol. 10.2 fl (6.2-12.0); Monocyte# 0.38 X10^3/uL; Monocyte% 5.2 % (0-10); NRBC Flagged by Analyzer 0 % (0-5); Neutrophil # 4.58 X10^3/uL (2.7-7.7); Neutrophil % 62.2 % (47-70); Platelet Count 234 K/mm3 (150-450); RBC Distribution Width CV 12.7 % (11.6-14.6); RBC Distribution Width SD 41.9 fl (35.1-43.9); Red Blood Count 4.55 M/mm3 (4.6-6.2); White Blood Count 7.4 K/mm3 (4.4-11.0)
[2024-04-26 11:32] LABS: Anion Gap 3 (5-15); BUN 15 mg/dL (7-18); BUN/Creat Ratio 15.9 RATIO (10-20); Calcium,Total 8.7 mg/dL (8.5-10.1); Chloride 105 mmol/L (98-107); Creatinine, Serum 0.95 mg/dL (0.70-1.30); EST Glomerular Filtration Rate 86 mL/min (>60); Est Glom Filt Rate - Afr Amer 104 mL/min (>60); Glucose 139 mg/dL (74-106); Sodium Level 138 mmol/L (136-145)
== END | disposition home or self-care (01) ==
PROVIDERS: PCP Family Medicine; Referring Provider Nurse Practitioner Family; Visit Provider Nurse Practitioner Family
DX: Z95.5 Presence of coronary angioplasty implant and graft (principal); Z72.0 Tobacco use; R94.39 Abnormal result of other cardiovascular function study
CPT/HCPCS: 36415; 80048; 85025

== ENCOUNTER 2024-05-01 09:52 | Observation (INO) | payer OTHER, SELFPAY ==
[2024-04-30 08:52] VITALS: BMI 26.1
--- NOTE | 2024-05-01 09:52 | ECHOD_ITS ---
Reason For Study: CORONARY ARTERY DISEASE Procedure This was a 2D Doppler, Color Flow transthoracic echocardiogram. Exam performed portable in patient room. Left Ventricle Normal LV size. Mild concentric left ventricular hypertrophy. The left ventricular ejection fraction is 65 %. Stage 1 diastolic dysfunction. Right Ventricle Normal right ventricle. Atria The left and right atria are normal. Mitral Valve Mild (1+) mitral valve insufficiency. Tricuspid Valve Trivial tricuspid valve insufficiency. Aortic Valve Trisinus/trileaflet aortic valve. Pulmonic Valve The pulmonic valve is not well visualized. Great Vessels Normal sized aortic root. Pericardium/Pleural No pericardial effusion. MMode/2D Measurements & Calculations LVIDd: 4.2 cm IVSd: 1.2 cm LVOT diam: 2.0 cm LVIDs: 2.4 cm LVPWd: 1.1 cm LVOT area: 3.1 cm2 RVDd: 3.4 cm FS: 43.6 % asc Aorta Diam: 3.4 cm LAV(MOD-bp): 30.0 ml LVAd ap4: 22.5 cm2 LAV(MOD-bp) Indexed: 15.6 ml/m2 LVLd ap4: 7.3 cm LAV(MOD-sp2): 28.9 ml EDV(MOD-sp4): 58.0 ml LAV(MOD-sp4): 30.7 ml EDV(sp4-el): 59.2 ml LVAs ap4: 11.1 cm2 LVLs ap4: 6.3 cm ESV(MOD-sp4): 18.4 ml ESV(sp4-el): 16.8 ml EF(MOD-sp4): 68.4 % EF(sp4-el): 71.7 % LVAd ap2: 25.2 cm2 SV(MOD-sp4): 39.7 ml SV(MOD-sp2): 49.7 ml LVLd ap2: 7.6 cm SI(MOD-sp4): 20.7 ml/m2 SI(MOD-sp2): 25.9 ml/m2 EDV(MOD-sp2): 68.9 ml EDV(sp2-el): 70.6 ml LVAs ap2: 11.8 cm2 LVLs ap2: 6.2 cm ESV(MOD-sp2): 19.2 ml ESV(sp2-el): 18.9 ml EF(MOD-sp2): 72.1 % SV(sp4-el): 42.5 ml Ao sinus diam: 3.[address] Junction: 2.8 cm LA dimension(2D): 3.4 cm LA A4 area: 13.0 cm2 RA A4 area: 14.2 cm2 TAPSE: 2.3 cm Time Measurements MV dec time: 0.23 sec Doppler Measurements & Calculations MV E max jan: 85.4 cm/sec Lat Peak E' Jan: 12.4 cm/sec Med Peak E' Jan: 9.9 cm/sec MV A max jan: 60.8 cm/sec E/E' lat: 6.9 E/E' med: 8.6 MV E/A: 1.4 MV dec slope: 377.9 cm/sec2 Ao V2 max: 120.3 cm/sec LV V1 max: 96.4 cm/sec Ao max P.8 mmHg LV V1 max P.7 mmHg Ao V2 mean: 87.2 cm/sec LV V1 mean P.0 mmHg Ao mean P.3 mmHg LV V1 mean: 66.8 cm/sec Ao V2 VTI: 26.6 cm LV V1 VTI: 21.2 cm AV (velocity ratio): 0.79 MAGY(I,D): 2.5 cm2 MAGY(V,D): 2.5 cm2 SV(LVOT): 65.5 ml PA V2 max: 86.2 cm/sec ECHO/Echo Complete Interpretation Summary Mild concentric left ventricular hypertrophy. The left ventricular ejection fraction is 65 %. Stage 1 diastolic dysfunction. Mild (1+) mitral valve insufficiency. Ordering Physician: Aislinn Carbajal Referring Physician: Lokesh Foreman MD Performed By: Dia Noguera RDCS
--- NOTE | 2024-05-01 09:57 | DCINST_ITS ---
Discharge Instructions Diet Discharge Diet: Low fat / Low cholesterol DC O2, CPAP, BIPAP needs Home O2 Discharge instructions: No Dressing / Incision Discharge Activity: Return to Normal Activity Dressing / Incision Call your doctor if your incision/area has: Continuous Slow Oozing, Sudden Increased Bleeding, Increased Pain/ Swelling, Increased Redness, Foul Smelling Discharge and Swelling at the incision site Follow Up Care Please Follow Up With: iAslinn Carbajal MD When: 2-4 weeks Test Results: Test results from this visit will be discussed in further detail at your follow- up appointment, if applicable. Discharge Plan Admission Admit Date/Time: 05/01/24 09:52 Attending Provider: Aislinn Carbajal Primary Care Provider: Lokesh Foreman Discharge Orders/Prescriptions Prescriptions: New nitroglycerin 0.4 mg Tablet, Sublingual 0.4 mg sublingual Q5M PRN (Reason: Cardiac/Chest Pain) Qty: 15 4RF Continued atorvastatin 40 mg Tablet 40 mg PO QHS Qty: 90 3RF clopidogrel 75 mg Tablet 75 mg PO DAILY Qty: 90 3RF aspirin 81 mg Tablet,Delayed Release (Dr/Ec) 81 mg PO DAILY@0800 Qty: 90 3RF metoprolol succinate [Toprol XL] 25 mg tablet extended release 24 hr 25 mg PO DAILY Qty: 90 3RF Referrals / Follow Up: Lokesh Foreman MD [Primary Care Provider] - Disposition Disposition (needs filled in before D/C Order can be placed): Home, Self Care
--- NOTE | 2024-05-01 10:05 | CL.I_ITS ---
Patient Name: OLGA LOPEZ Study Date: 05/01/2024 Performing: Aislinn Carbajal MD Ht: 68 inches 172.72 cm : 1960 Wt: 172.2 lbs 78.02 kg Age: 64 Gender: male BSA: 1.92 PROCEDURE(S) PERFORMED IC12-(16707/C9600)JONATHAN W/WO PTCA, SINGLE CORONARY ARTERY CLINICAL PROFILE AND CO-MORBIDITIES Indications: Staged PCI Heart Failure: None CONCLUSIONS Successful PTCA/JONATHAN Prox RCA using [place] 3.5x34 mm, post-dilated using 4.0 mm balloon RECOMMENDATIONS ASA Indefinitley P2Y12 inhibitors for atleast 6 months Risk factor modification DESCRIPTION OF PROCEDURE The patient arrived to the procedure lab. The risks and benefits of the procedure as well as a full description of our services here and current unavailability of surgical backup were fully explained to the patient and/or their significant other prior to the catheterization. The Timeout was completed, verifying the correct patient and procedure. The patient's procedural site was prepped and draped in the usual fashion. Local anesthetic was given subcutaneously to right radial region with Lidocaine 2%. Using a modified Seldinger technique, arterial access was obtained via the right radial artery, a 6Fr sheath was inserted.. AL 0.75 Guide catheter was inserted and engaged into the RCA. Runthrough Guide wire was advanced to the RCA. 3 x 15 Emerge Balloon catheter was inserted. Balloon catheter was advanced across lesion in the right coronary, proximal. PTCA balloon inflated at 6 atms for 10 secs. 3.5 x 34 [place] Drug Eluting stent was inserted. Angiogram performed pre stent deployment. Drug Eluting stent was advanced across the lesion in the right coronary, proximal. 4 x 12 NC Euphora Balloon catheter was inserted post stent. Angiogram performed post balloon dilatation. The arterial sheath was pulled and a TR Band was applied for hemostasis. 11cc air INTERVENTION INFORMATION LESION SITE: RCA (Proximal) Lesion Complexity: High/C, lesion length: 32 mm Pre Stenosis: 90 % Pre intervention JOSIAH flow: 3 PROCEDURE: Drug Eluting Stent with pre and post dilatation Post Stenosis: 0 % Post intervention JOSIAH flow: 3 Lesion Devices: Terumo .014 180cm Runthrough Extra Floppy straight Apsetronic 6 Fr AL.75 100cm Guide Catheter Ricky Sci EMERGE MR 3.00x15 BALLOON Medtronic 3.5 x 34 DIEGO FRONTIER JONATHAN Medtronic NC EUPHORA RX 4.0x12 BALLOON COMPLICATIONS No Complications PROCEDURE MEDICATIONS Fentanyl 50 mcg IV Versed 1 mg IV Versed 1 mg IV Oxygen: 2 L/min via nasal cannula Baby Aspirin (81mg) 1 Tabs PO @ 05/01/2024 08:58:26 Heparin given IA 05/01/2024 09:17:48 Heparin 5000 unit(s) IV 05/01/2024 09:23:56 Heparin 1000 unit(s) IV 05/01/2024 09:56:13 Nitro 200 mcg IC 05/01/2024 09:37:48 Plavix 300 mg PO 05/01/2024 08:59:10 Verapamil 2.5mg, Ntg 200mcgs, 2000 units of Heparin given IA 05/01/2024 09:17:48 IV Bolus: .9 NaCl 250 ml total 05/01/2024 09:19:01 SUMMARY OF HEMODYNAMIC DATA Time AIR REST ECG 08:56:56 AO 127/63 (89) SA 09:29:57 Signed By Aislinn Carbajal MD On 05/01/2024 10:04:23 Aislinn Carbajal MD
[2024-05-01 10:12] LABS: ACT Activated Clotting Time 245 sec (74-137)
[2024-05-01 10:12] LABS: ACT Activated Clotting Time 314 sec (74-137)
--- NOTE | 2024-05-01 10:18 | CRPHASE1 ---
Patient Communication Patient Information Former Patient:: Phase I PHII Cardiac Rehab Discussed with Patient:: Yes Guide to Cardiac Rehab Given to Patient:: Yes Cardiac Rehab Facility Choice List Given to Patient:: Yes Communication to Cardiac Rehab Web Ui Developer:: Aislinn Carbajal Sessions:: 36 sessions - 3 days/wk, 12 weeks Cardiac Rehabilitation Info Program Information Cardiac Rehabilitation Program Information: Cardiac Rehab The cardiac rehab team at [facility] consists of highly skilled exercise physiologists, nurses, respiratory therapists and physicians working together with you. Our purpose is to help you have a full recovery and achieve the goals you set for yourself. Over the years many of our patients have returned to activities they assumed they would never do again! We can help restore your confidence and motivation to make lifestyle changes that can have a significant impact on your health and quality of life! We can help answer questions and concerns you may have about exercise, lifestyle, medications, diet, stress and anxiety which are common following a hospitalization. WE monitor ECG and vital signs during exercise and discuss your progress with you and report to your physician(s). Cardiac Rehab is proven to help reduce readmissions, improve functional capacity and lower recurrence of problems with your heart. Our Cardiac Rehab program is Certified by the [place] [employer] Pulmonary [employer] (AACVPR) and Accredited by the [place] [employer] through our [facility]. You can contact us at . We invite you to call us with your questions or to get started in our program. If you have other questions or concerns be sure to ask your physician/provider during your follow-up visit. WE look forward to seeing you!
--- NOTE | 2024-05-01 10:19 | CRPH1.INSTRU ---
General Education Discussed with Patient CAD and cardiac anatomy and function:: Patient communicates acknowledgment Explanation of diagnoses and procedures:: Patient communicates acknowledgment Sign/Symptoms of SC:: Patient communicates acknowledgment Antiplatelet therapy: Patient communicates acknowledgment Proper use of NTG-SL: Patient communicates acknowledgment Emergency procedures and activation of EMS: Patient communicates acknowledgment Compliance of all prescribed medications: Patient communicates acknowledgment Smoking Risk Factors Patient Nicotine/Smoking Risk Factors Are:: Cigarettes Recommendations Recommendations Include:: Smoking cessation strategies/Smoking packet Response Code Nicotine/Smoking Response Code:: Patient communicates acknowledgment Dyslipidemia Risk Factors Patient Dyslipidemia Risk Factors Are:: HDL Recommendations Recommendations Include:: Lipid profile provided Response Code Dyslipidemia Response Code:: Patient communicates acknowledgment Overweight/Obesity Risk Factors Patient Overweight/Obesity Risk Factors Are:: Overweight = 26-29 Response Code Overweight/Obesity:: Patient communicates acknowledgment Hypertension Risk Factors Patient Hypertension Risk Factors Are:: No documented hx of HTN Response Code Hypertension:: Patient communicates acknowledgment Heart Disease Risk Factors Patient Heart Disease Risk Factors Are:: Previous cardiac event Response Code Heart Disease Response Code:: Patient communicates acknowledgment Diabetes Risk Factors Patient Diabetes Risk Factors Are:: No documented hx of diabetes Response Code Diabetes:: Patient communicates acknowledgment Metabolic Syndrome Recommendations Recommendations Include:: Does not meet criteria Sedentary Risk Factors Patient Sedentary Risk Factors Are:: Lack of regular exercise Recommendations Recommendations Include:: Discussed home walking program and Monitored Outpatient Cardiac Rehab Response Code Sedentary Response Code:: Patient communicates acknowledgment Stress Recommendations Recommendations Include:: Identification of stressors, and assessment of coping skills and Stress management techniques Response Code Stress Response Code:: Patient communicates acknowledgment
[2024-05-01 12:10] VITALS: BP 138/81; PULSE 55; RESP 16; TEMP 36.4; O2SAT 99
[2024-05-01] MEDS: 0.9% Normal Saline (1000mL) 1,000 ML 100 ML IV (13:15)
[2024-05-01 17:45] VITALS: BP 121/78; PULSE 64; RESP 16; TEMP 36.6; O2SAT 99
[2024-05-01 21:00] VITALS: BP 131/70; PULSE 63; RESP 16; TEMP 36.9; O2SAT 96
[2024-05-01] MEDS: Atorvastatin Calcium 40 MG Tablet PO (21:04)
[2024-05-01 23:20] VITALS: BP 125/70; PULSE 57; RESP 16; TEMP 36.7; O2SAT 96
[2024-05-02 03:27] VITALS: BMI 25.9
[2024-05-02 05:25] VITALS: BP 119/75; PULSE 61; RESP 16; TEMP 36.6; O2SAT 98
[2024-05-02 06:51] LABS: Hematocrit 40.6 % (40-54); Hemoglobin 13.5 g/dL (13.0-16.5); Mean Corp Hgb Conc 33.3 g/dL (32-36); Mean Corpuscular Hgb 29.2 pg (27.0-32.0); Mean Corpuscular Volume 87.9 fL (80-94); Mean Platelet Vol. 10.2 fl (6.2-12.0); Platelet Count 188 K/mm3 (150-450); RBC Distribution Width CV 12.6 % (11.6-14.6); RBC Distribution Width SD 40.5 fl (35.1-43.9); Red Blood Count 4.62 M/mm3 (4.6-6.2); White Blood Count 5.9 K/mm3 (4.4-11.0)
[2024-05-02 07:19] LABS: AST(SGOT) 39 U/L (15-37); Alanine Aminotransfer ALT/SGPT 66 U/L (16-61); Albumin, Serum 3.4 g/dL (3.2-5.0); Alkaline Phosphatase 109 U/L (45-117); Anion Gap 5 (5-15); BUN 15 mg/dL (7-18); BUN/Creat Ratio 17.2 RATIO (10-20); Calcium,Total 8.4 mg/dL (8.5-10.1); Chloride 109 mmol/L (98-107); Creatinine, Serum 0.87 mg/dL (0.70-1.30); EST Glomerular Filtration Rate 94 mL/min (>60); Est Glom Filt Rate - Afr Amer 114 mL/min (>60); Estimated Creatinine Clearance 85.17 ml/min; Globulin 3.3 g/dL (2.2-4.2); Glucose 123 mg/dL (74-106); Protein, Total 6.7 g/dL (6.4-8.2); Sodium Level 137 mmol/L (136-145)
[2024-05-02 07:43] VITALS: O2SAT 96
[2024-05-02 09:46] VITALS: BP 117/68; PULSE 72; RESP 16; TEMP 36.5; O2SAT 99
[2024-05-02 09:49] VITALS: BP 117/68; PULSE 72
[2024-05-02] MEDS: Metoprolol(XL)Succ 25 MG Tablet PO (09:49)
[2024-05-02] MEDS: Clopidogrel Bisulfate 75 MG Tablet PO (09:49)
[2024-05-02] MEDS: Aspirin E.C. 81 MG Tablet PO (09:49)
--- NOTE | 2024-05-02 10:00 | EKG12_ITS ---
Test Reason : AM EKG Blood Pressure : */* mmHG Vent. Rate : 57 BPM Atrial Rate : 57 BPM P-R Int : 158 ms QRS Dur : 90 ms QT Int : 412 ms P-R-T Axes : 71 59 82 degrees QTcB Int : 401 ms Sinus bradycardia Otherwise normal ECG When compared with ECG of 01-May-2024 11:18, MANUAL COMPARISON REQUIRED DATA IS UNCONFIRMED Confirmed by TOSHA BUENROSTRO, JUANITO ([id number]), news assignment editor TAMMY ROWLEY ([id number]) on 05/02/2024 9:36:26 AM Referred By: Aislinn Carbjaal Confirmed By: JUANITO GIVENS MD
--- NOTE | 2024-05-02 10:47 | CASEMGMT ---
Patient has order for discharge. RN CM in to discuss needs at discharge. Patient denies needs or help at discharge. Patient had no further questions or concerns.
== END 2024-05-02 10:00 | disposition home or self-care (01) ==
LOC: CLSP 11:45 → PCU 12:22
PROVIDERS: Admitting Provider Internal Medicine Cardiovascular Disease; PCP Family Medicine; Referring Provider Internal Medicine Cardiovascular Disease; Visit Provider Internal Medicine Cardiovascular Disease
DX: I25.10 Atherosclerotic heart disease of native coronary artery without angina pectoris (principal); R94.39 Abnormal result of other cardiovascular function study; R42 Dizziness and giddiness; R53.83 Other fatigue; Z79.82 Long term (current) use of aspirin; Z79.899 Other long term (current) drug therapy; Z79.02 Long term (current) use of antithrombotics/antiplatelets; F17.210 Nicotine dependence, cigarettes, uncomplicated; Z95.5 Presence of coronary angioplasty implant and graft
CPT/HCPCS: 36415; 80053; 85027; 85347; 92928; 93005; 93306; 96360; 96361; 99152; 99153; 99221; Q9967; C1725; C1769; C1874; C1887; C1894; C9600; G0378

== ENCOUNTER → 2024-06-01 | Outpatient (CLI) | payer OTHER, SELFPAY ==
--- NOTE | 2024-06-01 08:02 | CR.HP_ITS ---
CR - History & Physical General Arrival date:: 06/01/24 Arrival time:: 08:03 Date of Referral:: 05/08/24 Date of CR Evaluation:: 06/01/24 Referring Physician: Dr. Carbajal Primary Diagnosis: PCI with stenting History of Present Cardiac Event Onset Date PTCA or coronary stenting:: Yes (onset 05/01/24) Medications Ambulatory Orders ?Medication ?Instructions ?Recorded aspirin 81 mg tablet,delayed 81 mg PO DAILY@0800 heart health 03/28/24 release #90 tabs atorvastatin 40 mg tablet 40 mg PO QHS cholesterol #90 tabs 03/28/24 clopidogrel 75 mg tablet 75 mg PO DAILY antiplatelet #90 03/28/24 tabs metoprolol succinate 25 mg 25 mg PO DAILY heart/ blood 03/28/24 tablet,extended release 24 hr pressure #90 tabs (Toprol XL) nitroglycerin 0.4 mg sublingual 0.4 mg sublingual Q5M PRN 05/01/24 tablet Cardiac/Chest Pain #15 tabs Allergies Allergies No Known Allergies Allergy (Verified 04/16/24 13:04) Sleep Disorder Evaluation Hx of Sleep Apnea: No Do you snore loudly (louder than talking or can be heard through closed doors)?: No Do you often feel tired/ fatigued/ sleepy during daytime?: No Has anyone observed you stop breathing during sleep?: No History of Hypertension (for STOP score): No STOP Results: Negative Advanced Directives Advanced Directives Power of Irradiated Fuel Handler: Yes Living Will: Yes Advance Directives Information Provided: Yes Advance Directives on File: No DNR Order?:: No Past Medical History Covid-19 Screening Physicial Symptoms Other Clinical Concerns Exposure Risk Pertinent Comorbidities Has a serious heart condition:: Yes Past Medical Illness Past Medical History (Updated 05/10/24 @ 00:01 by Background Daemon) Tobacco abuse Z72.0 COVID-19 U07.1 Diverticulosis of colon K57.30 Diverticulitis K57.92 Anxiety F41.9 Family history of colon cancer Z80.0 Past Surgical History Past Surgical History (Updated 05/10/24 @ 00:01 by Background Daemon) Stented coronary artery (03/27/24) Z95.5 Prox LAD: Sam Hackensack 3.0 X 18 mm JONATHAN: distal mid LAD: Citronelle Hackensack 2.5 X 8 mm; mid LAD: Citronelle Hackensack 3.0 X 30 mm; Prox LCX: Sam Hackensack 3.0 X 22. To have staged PCI to RCA S/P appendectomy 11/2019 incidental Status post colectomy 49 11/2019 Hx of hernia repair Z98.890, Z87.19 As a child Hx of colonoscopy Z98.890 04/05/18 Family History Summary Family History Sister Breast cancer Colon cancer Mother Cancer Unknown type Diabetes Father CAD (coronary artery disease) Heart disease High cholesterol Social History Smoking History Smoking Status: Current every day smoker Years Smokin Packs Smoked per Day: 0.5 Alcohol Use Alcohol Usage: Yes Substance Abuse Hx Substance Use: No Occupation Occupation (List type of work in comments):: Retired Social Environment Status Marital Status: Single Safety Do you feel safe in your surroundings?: Yes Assistance Do you need any assistance at home?: no Review of Systems Review of Systems Hints Review of Present Symptoms: Reports Dizziness/Lightheadedness, Fatigue, Heart Arrhythmia/Irregularities, Appetite - Normal, Appetite - Special Diet and Sleep - Normal; Denies Shortness of Breath at Rest, Shortness of Breath with Exertion, PVD, Operative Discomfort, Angina, Wound Healing or Sexual Changes Pain Is Patient Pain Free?: Yes Risk Factor Assessment Chief Complaint Chief Complaint: PCI with stenting Vital Signs Pulse Ox: 98 Blood Pressure: 160/82 Pulse Pulse Rate: 58 Hypertension Blood Pressure Sitting - Right Arm: 160/82 Obesity Height: 5 ft 8 in Weight:: 172 lb Weight in Pounds: 172.0 lbs Body Mass Index (BMI): 26.1 Risk Stratification Risk Guidelines: Moderate Risk: Risk Factor for Dyslipidemia, Risk Factor for Diabetes, Risk Factor for Obesity, Risk Factor for Hypertension and Risk Factor for Sedentary Lifestyle and Highest Risk: Risk Factor for Smoking and Risk Factor for Depression For Smoking Smoking Risk Guidelines For Dyslipidemia Dyslipidemia Risk Guidelines For Diabetes Mellitus Diabetes Risk Guidelines For Obesity/Overweight Obesity/Overweight Risk Guidelines For Hypertension Hypertension Risk Guidelines For Sedentary Lifestyle Sedentary Lifestyle Risk Guidelines For Depression Depression Risk Guidelines Family History Family History Sister Breast cancer Colon cancer Mother Cancer Diabetes Father CAD (coronary artery disease) Heart disease High cholesterol Motivation Motivation to Participate On a scale of 1 to 10, how prepared are you to commit to attending program?: 4 What do you see as barriers to successfully being able to complete the program?: nothing What do you see as the benefits of succesfully completing the program? In other words, what do you hope to get out of participating in the program?: knowledge, more energy Are there issues you are dealing with that will interfere with completing the program?: no Do you have a spouse or signficant other, family or friends who will help support you to complete the program?: yes
--- NOTE | 2024-06-01 08:09 | PCM.CR.ITP ---
Diagnosis General Information Admitting Diagnosis: PCI with stenting Personal Learning Style:: Audio/Visual Barriers to Learning: No Barriers Stage of change r/t lifestyle modifications:: Contemplation Gave educational material for:: Treating Heart Disease, How The Heart Works, What it means to have Heart Disease, How Coronary Artery Disease is Diagnosed, Heart Procedures, What Heart Medications Do, Risk Factors & Modifications, Living an Active Life, Nutrition, Emotions & Heart Disease, Stress Management & Relaxation and Sleep Disorders & Heart Disease Education/Goals Cardiac Rehabilitation Goals Personal Goals: Initial Assessment: Quit smoking (participate in smoking cessation, Improve energy level, Get back to work, or to resume activities faster, Improve knowledge of cardiac disease, Improve muscle strength and endurance, Improve diet and eating habits (eat healthier) and Control risk factors (learn risk factor modification) Scale for measuring improvement of personal goals Diagnosis & Disease Process Outcomes/Goals: Pt IDs own risk factors & lifestyle modifications by Session 10, Verbalizes symptoms of angina & response by session 3., Pt independently manages and Other Additional Outcomes/Goals: Plan/Interventions: Assist Pt to ID & engage in lifestyle modification to reduce CVD risk, Instruct on individual risk factors, Review symptoms of angina & emergency actions, Review secondary diagnosis & identify educational needs. and Other see comment 30 day Reassessments:: Not Met 30 day Reassessments:: Not Met 30 day Reassessments:: Not Met 30 day Reassessments:: Not Met Final Reassessments:: Not Met Safety Referral to Physical Therapy: No Referral to [facility] Case Management: No Fall Risk Assessed:: Yes Assistive Devices:: None Exercise - Initial Assessment Visit Date of Eval: 06/01/24 (initial eval ) Mets: Pre-: >3 METS for 30 minutes by discharge, >5 METS for 30 minutes by discharge, >7 METS for 30 minutes by discharge and Unable to meet goal due to: (see comment below) Physician Prescribed Exercise Modalities: Treadmill, Rower, Schwinn Airdyne AD-7, SciFit Stepper, SciFit Pro-II Ergometer and SciFit Lateral [place] Environmental Engineer Frequency: 3x/week for 12 weeks [36 sessions] Intensity: 60-80% of age predicted maximum heart rate reserve Duration: 30 - 45 minutes Current METSs:: 3 Target Heart Rate:: 95-119 Resting Blood Pressure: 160/82 EKG Type: SB Outcomes & Goals Goals:: Verbalizes understanding of THR, RPE & goal METS by session 6, Documents in home exercise log/reports 30 min aerobic 5 day/wk by DC, Demonstrates accurate pulse taking by DC and Other additional outcome/goals: see below Intervention & Plan Exercise Program Goals: Instruct on personal THR & RPE, Instruct on MET level & personal MET goal, Show patient to take own pulse /validate performance until accurate, Instruct on home exercise and Other additional plan/int Physical Activity Home Exercise Physical Activity - Home Exercise: Safe Exercise, Warm-up, Self-monitoring, Cool-Down, Home Exercise > 30 min Daily and Sitting Time <3 hours/daily Outcomes & Goals Outcomes/Goals: Demonstrates correct Warm-up/exercise Cool-Down (S3) if = 2.5 METs, Verbalizes symptoms of exercise intolerance by Session 3 (S3), Demonstrate safe equipment use (S3) & follows exercise prescrition (6) and Other: See below Intervention & Plan Plan/Intervention: Instruct warm-up & cool-down if exercising at > 2 METs, Instruct on symptoms of exercise intolerance & actions to take, Instruct & monitor on saf, Assess intial functional capacity & safety risk and Other See below Nutrition - Initial Assessment Program Goals Nutrition Program Goals Patient has diagnosis of Hyperlipidemia (ICD E78)?: No Visit Date of Eval: 06/01/24 (initial eval ) Cholesterol/Lipids (Other Core Measures) Determine presence & major risk factors that modify LDL goal: Cigarette smoking, Hypertension or hypertensive medication, Low HDL cholesterol <40 mg/dL*, Family history of premature CHD in Male < 55 years: female <65 yearsFa and Age men > 45 years; women >/= 55 years Outcomes/Goals: Pt IDs own risk factors & lifestyle modifications by Session 10, Verbalizes symptoms of angina & response by session 3., Pt independently manages and Other Additional Outcomes/Goals: Referral to dietitian:: No Diabetes (Other Core Measures) Diabetes Type: Not Applicable Weight Mgt (Other Care) Height: 5 ft 8 in Weight:: 172 lb BMI: 26.1 Diagnosis Overweight/Obesity BMI> 30% ICD-10 E66: No Diagnosis High BMI/Morbid Obesity BMI> 35% ICD-10 Z68: No Outcomes/Goals: Pt sets, maintains & shows weight loss goal & trend during rehab and Other additional outcomes/goals Intervention/Plan: Instruct on ideal BMI & set weight loss goal w/patient, Assist pt to ID & incorporate diet changes for weight loss by S9, Refer to Structured Weight Loss program as appropriate, Encourage goal of using 250-300dcal per session for weight loss and Other additional plan/interventions Healthy Eating Habits Will attend diet classes:: Yes Outcomes/Goals:: Consume diet rich in vegs,fruits,whole grain/high fiber,fish,lean meat, Limit sat/trans fats,cholesterol & added salts & sugars and Other additional outcome/goals: Intervention/Plan:: Assess current eating habits and Other Additional plan/interventions Education Gave educational materials for:: Signs & symptoms of hypoglycemia, Signs & symptoms of hyperglycemia, Relate diabetes to coronary artery disease and Healthy eating Core - Initial Assessment Visit Date of Eval: 06/01/24 (initial eval ) Medication Compliance Preventative Medication(s):: Aspirin, Clopidogrel/P2Y12 inhibit, Statin/lipid and Beta marylin H/O mental health issues: depression, anxiety, or addiction?: Yes Doesn?t believe in the benefits of treatment?: No Believes medications are unnecessary or harmful?: No Has a concern about medication side effects?: No Expresses concern over the cost of medications?: No Outcomes/Goals: Verbalizes medications,desired effect & common side effects @ DC, Pt self-reports following medication regimen, Keeps card in wallet w/medications listed by DC and Other additional outcome/goals: Interventions/plans: Instruct on medication effects & side effects, Review medication list w/patient every two weeks, Instruct importance of taking meds as ordered & assist problem solving and Other additional Tobacco Use Tobacco Use: Cigarettes How many cigarettes do you smoke per day?: 10 Years Smokin Outcomes/Goals: Smoking cessation achieved or maintained by discharge, Identify aids/strategies for achieving smoking cessation by session 6 and Other additional outcome/goals Interventions/plan: Instruct on effects of smoking & provide smoking cessation resource, Assist pt to set quit date & provide encouragement, Assist pt to develop strategies to achieve/maintain quit date, Assist pt w/nicotine replacement & medication for cessation success and Other additional plan/interventions Hypertension Resting Blood Pressure:: 138/81 [place] [employer] Hypertension Guidelines Outcomes/Goals: Able to verbalize/achieve optimal blood pressure <130/80, Incorporates diet changes & exercise for blood pressure control by DC and Other additional outcomes/goals Interventions/plan: Instruct on optimal blood pressure, hypertension & medications, Instruct on effects of sodium, alcohol, stress, exercise &hypertension and Other additional plan/interventions Tobacco Cessation Referral Individual Education/Counseling:: No Education Schedule Given:: Yes Psychosocial - Initial Assess VIsit Date of Eval: 06/01/24 (initial eval ) History of previous Mental disease:: Yes History of Emotional Disorders: Anxious Target Goals Target Goals Psychosocial Test Tool Used:: PHQ-9 Questionnaire phq-9 Severity Referral to Behavioral Health PS - Interventions: Yes: Attend Stress Management Classes Outcomes/Goals: See list Psychosocial Outcomes/Goals:: ID's personal stressors & 2 strategies to manage stress by discharge and Other Additional outcome/goals: Intervention/Plan: See List Interventions/Plan:: Assess stressors,coping strategies & signs of derpression on admission, Instruct/assist pt to develop coping & personal stress Mgt strategies, Refer to Behavioral Health if appropriate, Refer to Physician if appropriate, Instruct patient to recognize signs & symptoms of depression, Instruct patient to recog and Other additional plan/intervention Patient Health Questionnaire PHQ-9 Screening Initial Assessment: 1. Little interest or pleasure in doing things: Several days 2. Feeling down, depressed, or hopeless: Several days 3. Trouble falling or staying asleep, or sleeping too much: Several days 4. Feeling tired or having little energy: More than half the days 5. Poor appetite or overeating: More than half the days 6. Feeling bad about yourself -- or that you are a failure or have let yourself or your family down: Not at all 7. Trouble concentrating on things, such as reading the newspaper or watching television: Several days 8. Moving or speaking so slowly that other people could have noticed. Or the opposite - being so fidgety or restless that you have been moving around a lot more than usual: Not at all 9. Thoughts that you would be better off , or of hurting yourself in some way: Not at all How difficult have these problems made it for you to do your work, take care of things at home, or get along with other people?: Not difficult at all Total Score: 8 TOBIN-Q SV Test Statements CAD is a disease of the arteries in the heart: False Examples of risk factors for heart disease: True Angina is chest pain or discomfort: I Don't Know The benefits of resistance training include: True Eating more meat and dairy products: False Anti-platelet medications such as aspirin are important: True The only effective way to manage stress: False An exercise warm-up slowly increases heart rate: True Prepared, processed foods usually have high sodium: True Depression is common after a heart attack: True The statin medications lower cholesterol: True To control blood pressure, lower the amount of sodium: True If someone gets chest discomfort during walking: False Transfats are partially hydrogenated vegetable oils: True Sleep apnea that is not treated increases the risk: I Don't Know To control cholesterol, one should become a vegetarian: I Don't Know Someone knows if he/she is exercising at the right level: True Diabetes cannot be prevented with exercise & health eating: False Stress is a large risk for heart attack: True A diet that can help lower blood pressure is rich in: True Total Score Total Correct Responses: 17 Self-Efficacy 6-Item Scale Initial Assessment: We would like to know how confident you are in doing certain activities. Please select your confidence level for: Fatigue Select Number: 3 Physical Discomfort or Pain Select Number: 3 Emotional Distress Select Number: 8 Other Symptoms or Health Problems Select Number: 4 Different Tasks and Activities Select Number: 5 Medication Select Number: 7 Total Score:: 5 Nutrition Survey Nutrition Survey Instructions Scoring Instructions Nutrition Survey Initial: Have you lost >10 lbs over the past 2 months without trying?: No Are you following a special diet at home for diabetes, low fat, or low salt?: No Are you interested in meeting with a dietitian for help understanding your diet?: No Do you eat less than 3 meals a day?: Yes Do you eat fatty meats (interiano, sausage, ribs, etc), fried foods, desserts, large amounts of salad dressings, margarine, butter, or cheese most days?: Yes Do you have food allergies? [Enter types in comment field]: No Do you eat in restaurants more than 3 times a week?: No Do you season food with salt, seasoning salt, or garlic salt?: Yes Do you used canned, boxed, frozen meals, or soups, seasoning packets?: Yes Total Score:: 4 Exercise - 30-day Assessment Physician Prescribed Exercise Modalities: Treadmill, RowerMarcelo AD-7, SciFit Stepper, SciFit Pro-II Ergometer and SciFit Lateral [place] Exercise - 60-day Assessment Physician Prescribed Exercise Modalities: Treadmill, Rower, Schwinn Airdyne AD-7, SciFit Stepper, SciFit Pro-II Ergometer and SciFit Lateral [place] Exercise - 90-day Assessment Physician Prescribed Exercise Modalities: Treadmill, Rower, Schwinn Airdyne AD-7, SciFit Stepper, SciFit Pro-II Ergometer and SciFit Lateral [place] Environmental Engineer Exercise - Final/Discharge Physician Prescribed Exercise Modalities: Treadmill, Rower, Schwinn Airdyne AD-7, SciFit Stepper, SciFit Pro-II Ergometer and SciFit Lateral [place] Environmental Engineer Frequency: 3x/week for 12 weeks [36 sessions] Intensity: 60-80% of age predicted maximum heart rate reserve Current METSs:: 3 Target Heart Rate:: 95-119 Nutrition - 30-Day Assessment Weight Mgt (Other Care) Height: 5 ft 8 in Weight:: 172 lb BMI: 26.1 Nutrition - 60-Day Assessment Weight Mgt (Other Care) Height: 5 ft 8 in Weight:: 172 lb BMI: 26.1 Core - 30-Day Assessment Tobacco Use Years Smokin Core - Final Assessment Hypertension Resting Blood Pressure:: 138/81 [place] [employer] Hypertension Guidelines Core - 60-Day Assessment Hypertension Resting Blood Pressure:: 138/81 [place] [employer] Hypertension Guidelines Psychosocial - 30-Day Assess Target Goals Target Goals Referral to Behavioral Health PS - Interventions: Yes: Attend Stress Management Classes Psychosocial - 60-Day Assess Target Goals Target Goals Referral to Behavioral Health PS - Interventions: Yes: Attend Stress Management Classes Psychosocial - 90-Day Assess Target Goals Target Goals Referral to Behavioral Health PS - Interventions: Yes: Attend Stress Management Classes Psychosocial - Final Assessmen Target Goals Target Goals Referral to Behavioral Health PS - Interventions: Yes: Attend Stress Management Classes Nutrition - 90-Day Assessment Weight Mgt (Other Care) Height: 5 ft 8 in Weight:: 172 lb BMI: 26.1 Nutrition - Final Assessment Program Goals Patient has diagnosis of Hyperlipidemia (ICD E78)?: No Weight Mgt (Other Care) Height: 5 ft 8 in Weight:: 172 lb BMI: 26.1
[2024-06-01 08:14] VITALS: BP 138/81
[2024-06-01 08:33] VITALS: BP 160/82; PULSE 58; O2SAT 98
[2024-06-01 09:09] VITALS: BP 160/82; BMI 26.1
== END | disposition home or self-care (01) ==
PROVIDERS: PCP Family Medicine; Referring Provider Internal Medicine Cardiovascular Disease; Visit Provider Internal Medicine Cardiovascular Disease
DX: Z95.5 Presence of coronary angioplasty implant and graft (principal)

== ENCOUNTER 2024-06-08 11:15 | Outpatient (RCR) | payer SELFPAY ==
[2024-06-01 09:09] VITALS: BMI 26.1
== END 2024-06-15 23:59 ==
LOC: CR 11:15
PROVIDERS: PCP Family Medicine; Referring Provider Internal Medicine Cardiovascular Disease; Visit Provider Internal Medicine Cardiovascular Disease
DX: Z95.5 Presence of coronary angioplasty implant and graft (principal)
CPT/HCPCS: 93798

== ENCOUNTER 2024-08-15 11:15 | Outpatient (RCR) | payer OTHER, SELFPAY ==
[2024-06-01 09:09] VITALS: BMI 26.1
--- NOTE | 2024-06-29 07:03 | CR.ITP_ITS ---
Exercise - Initial Assessment Visit Session #:: 3 (Pt has not attended rehab since 06/08/24 due to insurance issues.) Physician Prescribed Exercise Modalities: Treadmill, Schwinn Airdyne AD-7 and SciFit Stepper Nutrition - Initial Assessment Weight Mgt (Other Care) Height: 5 ft 8 in Weight:: 178 lb BMI: 27.0 Core - Initial Assessment Tobacco Use Years Smokin Psychosocial - Initial Assess Target Goals Target Goals Referral to Behavioral Health PS - Interventions: Yes: Attend Stress Management Classes Patient Health Questionnaire PHQ-9 Screening 30-Day Re-eval Assessment: 1. Little interest or pleasure in doing things: Several days 2. Feeling down, depressed, or hopeless: Several days 3. Trouble falling or staying asleep, or sleeping too much: Several days 4. Feeling tired or having little energy: More than half the days 5. Poor appetite or overeating: More than half the days 6. Feeling bad about yourself -- or that you are a failure or have let yourself or your family down: Not at all 7. Trouble concentrating on things, such as reading the newspaper or watching television: Not at all 8. Moving or speaking so slowly that other people could have noticed. Or t he opposite - being so fidgety or restless that you have been moving around a lot more than usual: Not at all 9. Thoughts that you would be better off , or of hurting yourself in some way: Not at all How difficult have these problems made it for you to do your work, take care of things at home, or get along with other people?: Not difficult at all Total Score: 7 Self-Efficacy 6-Item Scale 30-Day Re-eval Assessment: We would like to know how confident you are in doing certain activities. Please select your confidence level for: Fatigue Select Number: 3 Physical Discomfort or Pain Select Number: 3 Emotional Distress Select Number: 8 Other Symptoms or Health Problems Select Number: 4 Different Tasks and Activities Select Number: 5 Medication Select Number: 7 Total Score:: 5 Nutrition Survey Nutrition Survey Instructions Scoring Instructions Exercise - 30-day Assessment Visit Date of Eval: 06/29/24 Session #:: 3 (Pt has not attended rehab since 06/08/24 due to insurance issues.) Physician Prescribed Exercise Modalities: Treadmill, Schwinn Airdyne AD-7 and SciFit Stepper Frequency: 3x/week for 12 weeks [36 sessions] Intensity: 60-80% of age predicted maximum heart rate reserve Duration: 30 - 45 minutes Current METSs:: 3 Target Heart Rate:: 95-119 Current RPE:: 11-13 Resting Blood Pressure: 124/68 Maximum Exercise Blood Pressure: 162/68 EKG Type: NSR with rare PAC and PVC Outcomes & Goals Goals:: Verbalizes understanding of THR, RPE & goal METS by session 6, Documents in home exercise log/reports 30 min aerobic 5 day/wk by DC, Demonstrates accurate pulse taking by DC and Other additional outcome/goals: see below Intervention & Plan Exercise Program Goals: Instruct on personal THR & RPE, Instruct on MET level & personal MET goal, Show patient to take own pulse /validate performance until accurate, Instruct on home exercise and Other additional plan/int Physical Activity Home Exercise Physical Activity - Home Exercise: Safe Exercise, Warm-up, Self-monitoring, Cool-Down, Home Exercise > 30 min Daily and Sitting Time <3 hours/daily Outcomes & Goals Outcomes/Goals: Demonstrates correct Warm-up/exercise Cool-Down (S3) if = 2.5 METs, Verbalizes symptoms of exercise intolerance by Session 3 (S3), Demonstrate safe equipment use (S3) & follows exercise prescrition (6) and Other: See below Intervention & Plan Plan/Intervention: Instruct warm-up & cool-down if exercising at > 2 METs, Instruct on symptoms of exercise intolerance & actions to take, Instruct & monitor on saf, Assess intial functional capacity & safety risk and Other See below 30-day Reassessments 30 day Reassessments:: Progressing Reassessment Notes & Comments:: Pt has not attended rehab since 06/08/24 due to insurance issues. RPE was explained to pt. Pt was able to demonstrate understanding in his daily sessions. Exercise - 60-day Assessment Physician Prescribed Exercise Modalities: Treadmill, Schwinn Airdyne AD-7 and SciFit Stepper Exercise - 90-day Assessment Physician Prescribed Exercise Modalities: Treadmill, Schwinn Airdyne AD-7 and SciFit Stepper Exercise - Final/Discharge Physician Prescribed Exercise Modalities: Treadmill, Schwinn Airdyne AD-7 and SciFit Stepper Nutrition - 30-Day Assessment Program Goals Nutrition Program Goals Patient has diagnosis of Hyperlipidemia (ICD E78)?: No Visit Date of Eval: 06/29/24 Session #:: 3 (Pt has not attended rehab since 06/08/24 due to insurance issues.) Cholesterol/Lipids (Other Core Measures) Determine presence & major risk factors that modify LDL goal: Cigarette smoking, Hypertension or hypertensive medication, Low HDL cholesterol <40 mg/dL*, Family history of premature CHD in Male < 55 years: female <65 yearsFa and Age men > 45 years; women >/= 55 years Outcomes/Goals: Pt IDs own risk factors & lifestyle modifications by Session 10, Verbalizes symptoms of angina & response by session 3., Pt independently manages and Other Additional Outcomes/Goals: Intervention/Plan: Advocate for lipid panel cholesterol medication if applicable, Instruct on personal lipid levels & lipid goals/NCEP guidelines, Instruct on cholesterol and Other additional plan/int Diabetes (Other Core Measures) Diabetes Type: Not Applicable Weight Mgt (Other Care) Height: 5 ft 8 in Weight:: 178 lb BMI: 27.0 Diagnosis Overweight/Obesity BMI> 30% ICD-10 E66: No Diagnosis High BMI/Morbid Obesity BMI> 35% ICD-10 Z68: No Outcomes/Goals: Pt sets, maintains & shows weight loss goal & trend during rehab and Other additional outcomes/goals Intervention/Plan: Instruct on ideal BMI & set weight loss goal w/patient, Assist pt to ID & incorporate diet changes for weight loss by S9, Refer to Structured Weight Loss program as appropriate, Encourage goal of using 250- 300dcal per session for weight loss and Other additional plan/interventions Healthy Eating Habits Will attend diet classes:: Yes Outcomes/Goals:: Consume diet rich in vegs,fruits,whole grain/high fiber,fish,lean meat, Limit sat/trans fats,cholesterol & added salts & sugars and Other additional outcome/goals: Intervention/Plan:: Assess current eating habits and Other Additional plan/interventions 30-day Reassessments:: Not Met Reassessment Notes & Comments:: Pt has not attended rehab since 06/08/24 due to insurance issues. Pt has not attended nutrition class yet. Education Gave educational materials for:: Signs & symptoms of hypoglycemia, Signs & symptoms of hyperglycemia, Relate diabetes to coronary artery disease and Healthy eating Nutrition - 60-Day Assessment Weight Mgt (Other Care) Height: 5 ft 8 in Weight:: 178 lb BMI: 27.0 Core - 30-Day Assessment Visit Date of Eval: 06/29/24 Session #:: 3 (Pt has not attended rehab since 06/08/24 due to insurance issues.) Medication Compliance Preventative Medication(s):: Aspirin, Clopidogrel/P2Y12 inhibit, Statin/lipid and Beta marylin H/O mental health issues: depression, anxiety, or addiction?: Yes Doesn?t believe in the benefits of treatment?: No Believes medications are unnecessary or harmful?: No Has a concern about medication side effects?: No Expresses concern over the cost of medications?: No Outcomes/Goals: Verbalizes medications,desired effect & common side effects @ DC, Pt self-reports following medication regimen, Keeps card in wallet w/medications listed by DC and Other additional outcome/goals: Interventions/plans: Instruct on medication effects & side effects, Review medication list w/patient every two weeks, Instruct importance of taking meds as ordered & assist problem solving and Other additional Tobacco Use Tobacco Use: Cigarettes How many cigarettes do you smoke per day?: 10 Years Smokin Outcomes/Goals: Smoking cessation achieved or maintained by discharge, Identify aids/strategies for achieving smoking cessation by session 6 and Other additional outcome/goals Interventions/plan: Instruct on effects of smoking & provide smoking cessation resource, Assist pt to set quit date & provide encouragement, Assist pt to develop strategies to achieve/maintain quit date, Assist pt w/nicotine replacement & medication for cessation success and Other additional plan/interventions Hypertension Resting Blood Pressure:: 124/68 [place] [employer] Hypertension Guidelines Peak Exercise Blood Pressure:: 162/68 Outcomes/Goals: Able to verbalize/achieve optimal blood pressure <130/80, Incorporates diet changes & exercise for blood pressure control by DC and Other additional outcomes/goals Interventions/plan: Instruct on optimal blood pressure, hypertension & medications, Instruct on effects of sodium, alcohol, stress, exercise &hypertension and Other additional plan/interventions 30 day Reassessments:: Not Met Reassessment Notes & Comments:: Pt has not attended rehab since 06/08/24 due to insurance issues. Tobacco Cessation Referral Education Schedule Given:: Yes Psychosocial - 30-Day Assess VIsit Date of Eval: 06/29/24 Session #:: 3 (Pt has not attended rehab since 06/08/24 due to insurance issues.) History of previous Mental disease:: Yes History of Emotional Disorders: Anxious Target Goals Target Goals Psychosocial Test Tool Used:: Ferrans Power QOL Cardiac and PHQ-9 Questionnaire phq-9 Severity Referral to Behavioral Health PS - Interventions: Yes: Attend Stress Management Classes Outcomes/Goals: See list Psychosocial Outcomes/Goals:: ID's personal stressors & 2 strategies to manage stress by discharge and Other Additional outcome/goals: Intervention/Plan: See List Interventions/Plan:: Assess stressors,coping strategies & signs of derpression on admission, Instruct/assist pt to develop coping & personal stress Mgt strategies, Refer to Behavioral Health if appropriate, Refer to Physician if appropriate, Instruct patient to recognize signs & symptoms of depression, Instruct patient to recog and Other additional plan/intervention 30-day Reassessments: 30 day Reassessments:: Not Met Reassessment Notes & Comments:: Pt has not attended rehab since 06/08/24 due to insurance issues. Psychosocial - 60-Day Assess Target Goals Target Goals Referral to Behavioral Health PS - Interventions: Yes: Attend Stress Management Classes Outcomes/Goals: See list Psychosocial Outcomes/Goals:: ID's personal stressors & 2 strategies to manage stress by discharge and Other Additional outcome/goals: Psychosocial - 90-Day Assess Target Goals Target Goals Referral to Behavioral Health PS - Interventions: Yes: Attend Stress Management Classes Psychosocial - Final Assessmen Target Goals Target Goals Referral to Behavioral Health PS - Interventions: Yes: Attend Stress Management Classes Nutrition - 90-Day Assessment Weight Mgt (Other Care) Height: 5 ft 8 in Weight:: 178 lb BMI: 27.0 Nutrition - Final Assessment Weight Mgt (Other Care) Height: 5 ft 8 in Weight:: 178 lb BMI: 27.0
[2024-06-29 07:11] VITALS: BP 124/68; BMI 27.0
--- NOTE | 2024-07-25 11:06 | CR.ITP_ITS ---
Exercise - Initial Assessment Physician Prescribed Exercise Modalities: Treadmill, Schwinn Airdyne AD-7 and SciFit Stepper Nutrition - Initial Assessment Weight Mgt (Other Care) Height: 5 ft 8 in Weight:: 178 lb BMI: 27.0 Core - Initial Assessment Hypertension Resting Blood Pressure:: 142/62 [place] [employer] Hypertension Guidelines Psychosocial - Initial Assess Target Goals Target Goals Referral to Behavioral Health PS - Interventions: Yes: Attend Stress Management Classes Patient Health Questionnaire PHQ-9 Screening 60-Day Re-eval Assessment: 1. Little interest or pleasure in doing things: Several days 2. Feeling down, depressed, or hopeless: Several days 3. Trouble falling or staying asleep, or sleeping too much: Several days 4. Feeling tired or having little energy: More than half the days 5. Poor appetite or overeating: More than half the days 6. Feeling bad about yourself -- or that you are a failure or have let yourself or your family down: Not at all 7. Trouble concentrating on things, such as reading the newspaper or watching television: Not at all 8. Moving or speaking so slowly that other people could have noticed. Or the opposite - being so fidgety or restless that you have been moving around a lot more than usual: Not at all 9. Thoughts that you would be better off , or of hurting yourself in some way: Not at all How difficult have these problems made it for you to do your work, take care of things at home, or get along with other people?: Not difficult at all Total Score: 7 Self-Efficacy 6-Item Scale 60-Day Re-eval Assessment: We would like to know how confident you are in doing certain activities. Please select your confidence level for: Fatigue Select Number: 3 Physical Discomfort or Pain Select Number: 3 Emotional Distress Select Number: 8 Other Symptoms or Health Problems Select Number: 4 Different Tasks and Activities Select Number: 5 Medication Select Number: 7 Total Score:: 5 Nutrition Survey Nutrition Survey Instructions Scoring Instructions Exercise - 30-day Assessment Physician Prescribed Exercise Modalities: Treadmill, Schwinn Airdyne AD-7 and SciFit Stepper Exercise - 60-day Assessment Visit Date of Eval: 07/25/24 Session #:: 3 (Pt has been unable to attend CR since 06/08/24 due to insurance issues. Pt does plan on returning 07/30/24.) Physician Prescribed Exercise Modalities: Treadmill, Schwinn Airdyne AD-7 and SciFit Stepper Frequency: 3x/week for 12 weeks [36 sessions] Intensity: 60-80% of age predicted maximum heart rate reserve Duration: 30 - 45 minutes Current METSs:: 3 Target Heart Rate:: 95-119 Current RPE:: 11-13 Maximum Excercise HR:: 96 Resting Blood Pressure: 124/68 Maximum Exercise Blood Pressure: 162/68 EKG Type: NSR with rare PAC, PVC Outcomes & Goals Goals:: Verbalizes understanding of THR, RPE & goal METS by session 6, Documents in home exercise log/reports 30 min aerobic 5 day/wk by DC, Demonstrates accurate pulse taking by DC and Other additional outcome/goals: see below Intervention & Plan Exercise Program Goals: Instruct on personal THR & RPE, Instruct on MET level & personal MET goal, Show patient to take own pulse /validate performance until accurate, Instruct on home exercise and Other additional plan/int Physical Activity Home Exercise Physical Activity - Home Exercise: Safe Exercise, Warm-up, Self-monitoring, Cool-Down, Home Exercise > 30 min Daily and Sitting Time <3 hours/daily Outcomes & Goals Outcomes/Goals: Demonstrates correct Warm-up/exercise Cool-Down (S3) if = 2.5 METs, Verbalizes symptoms of exercise intolerance by Session 3 (S3), Demonstrate safe equipment use (S3) & follows exercise prescrition (6) and Other: See below Intervention & Plan Plan/Intervention: Instruct warm-up & cool-down if exercising at > 2 METs, Instruct on symptoms of exercise intolerance & actions to take, Instruct & m onitor on saf, Assess intial functional capacity & safety risk and Other See below 30-day Reassessments 30 day Reassessments:: Not Met Reassessment Notes & Comments:: Pt has been unable to attend CR since 06/08/24 due to insurance issues. Pt does plan on returning 07/30/24. Exercise - 90-day Assessment Physician Prescribed Exercise Modalities: Treadmill, Schwinn Airdyne AD-7 and SciFit Stepper Exercise - Final/Discharge Physician Prescribed Exercise Modalities: Treadmill, Schwinn Airdyne AD-7 and SciFit Stepper Nutrition - 30-Day Assessment Weight Mgt (Other Care) Height: 5 ft 8 in Weight:: 178 lb BMI: 27.0 Nutrition - 60-Day Assessment Program Goals Nutrition Program Goals Patient has diagnosis of Hyperlipidemia (ICD E78)?: No Visit Date of Eval: 07/25/24 Session #:: 3 (Pt has been unable to attend CR since 06/08/24 due to insurance issues. Pt does plan on returning 07/30/24.) Cholesterol/Lipids (Other Core Measures) Determine presence & major risk factors that modify LDL goal: Cigarette smoking, Hypertension or hypertensive medication, Low HDL cholesterol <40 mg/dL*, Family history of premature CHD in Male < 55 years: female <65 yearsFa and Age men > 45 years; women >/= 55 years Outcomes/Goals: Pt IDs own risk factors & lifestyle modifications by Session 10, Verbalizes symptoms of angina & response by session 3., Pt independently manages and Other Additional Outcomes/Goals: Intervention/Plan: Advocate for lipid panel cholesterol medication if applicable, Instruct on personal lipid levels & lipid goals/NCEP guidelines, Instruct on cholesterol and Other additional plan/int Diabetes (Other Core Measures) Diabetes Type: Not Applicable Weight Mgt (Other Care) Height: 5 ft 8 in Weight:: 178 lb BMI: 27.0 Diagnosis Overweight/Obesity BMI> 30% ICD-10 E66: No Diagnosis High BMI/Morbid Obesity BMI> 35% ICD-10 Z68: No Outcomes/Goals: Pt sets, maintains & shows weight loss goal & trend during rehab and Other additional outcomes/goals Intervention/Plan: Instruct on ideal BMI & set weight loss goal w/patient, Assist pt to ID & incorporate diet changes for weight loss by S9, Refer to Structured Weight Loss program as appropriate, Encourage goal of using 250- 300dcal per session for weight loss and Other additional plan/interventions Healthy Eating Habits Will attend diet classes:: Yes Outcomes/Goals:: Consume diet rich in vegs,fruits,whole grain/high fiber,fish,lean meat, Limit sat/trans fats,cholesterol & added salts & sugars and Other additional outcome/goals: Intervention/Plan:: Assess current eating habits and Other Additional plan/interventions 30-day Reassessments:: Not Met Reassessment Notes & Comments:: Pt has been unable to attend CR since 06/08/24 due to insurance issues. Pt does plan on returning 07/30/24. Pt will be scheduled to attend nutrition class upon his return. Education Gave educational materials for:: Signs & symptoms of hypoglycemia, Signs & symptoms of hyperglycemia, Relate diabetes to coronary artery disease and Healthy eating Core - Final Assessment Tobacco Use How many cigarettes do you smoke per day?: 10 Years Smokin Hypertension Resting Blood Pressure:: 142/62 [place] [employer] Hypertension Guidelines Core - 60-Day Assessment Visit Date of Eval: 07/25/24 Session #:: 3 (Pt has been unable to attend CR since 06/08/24 due to insurance issues. Pt does plan on returning 07/30/24.) Medication Compliance Preventative Medication(s):: Aspirin, Clopidogrel/P2Y12 inhibit, Statin/lipid and Beta marylin H/O mental health issues: depression, anxiety, or addiction?: Yes Doesn?t believe in the benefits of treatment?: No Believes medications are unnecessary or harmful?: No Has a concern about medication side effects?: No Expresses concern over the cost of medications?: No Outcomes/Goals: Verbalizes medications,desired effect & common side effects @ DC, Pt self-reports following medication regimen, Keeps card in wallet w/medications listed by DC and Other additional outcome/goals: Interventions/plans: Instruct on medication effects & side effects, Review medication list w/patient every two weeks, Instruct importance of taking meds as ordered & assist problem solving and Other additional Tobacco Use Tobacco Use: Cigarettes How many cigarettes do you smoke per day?: 10 Years Smokin Outcomes/Goals: Smoking cessation achieved or maintained by discharge, Identify aids/strategies for achieving smoking cessation by session 6 and Other additional outcome/goals Interventions/plan: Instruct on effects of smoking & provide smoking cessation resource, Assist pt to set quit date & provide encouragement, Assist pt to develop strategies to achieve/maintain quit date, Assist pt w/nicotine replacement & medication for cessation success and Other additional plan/interventions 30-day Reassessments:: Not Met Hypertension Hypertension Diagnosis:: Hypertension ICD-10 I10 Resting Blood Pressure:: 124/68 Resting Blood Pressure:: 142/62 [place] [employer] Hypertension Guidelines Peak Exercise Blood Pressure:: 162/68 Outcomes/Goals: Able to verbalize/achieve optimal blood pressure <130/80, Incorporates diet changes & exercise for blood pressure control by DC and Other additional outcomes/goals Interventions/plan: Instruct on optimal blood pressure, hypertension & medications, Instruct on effects of sodium, alcohol, stress, exercise &hypertension and Other additional plan/interventions 30 day Reassessments:: Not Met Reassessment Notes & Comments:: Pt has been unable to attend CR since 06/08/24 due to insurance issues. Pt does plan on returning 07/30/24. Tobacco Cessation Referral Education Schedule Given:: Yes Psychosocial - 30-Day Assess Target Goals Target Goals Referral to Behavioral Health PS - Interventions: Yes: Attend Stress Management Classes Outcomes/Goals: See list Psychosocial Outcomes/Goals:: ID's personal stressors & 2 strategies to manage stress by discharge and Other Additional outcome/goals: Psychosocial - 60-Day Assess VIsit Date of Eval: 07/25/24 Session #:: 3 (Pt has been unable to attend CR since 06/08/24 due to insurance issues. Pt does plan on returning 07/30/24.) History of previous Mental disease:: Yes History of Emotional Disorders: Anxious Target Goals Target Goals Psychosocial Test Tool Used:: [employer] Power QOL Cardiac and PHQ-9 Questionnaire phq-9 Severity See PHQ-9 Score: 7 Referral to Behavioral Health PS - Interventions: Yes: Attend Stress Management Classes Outcomes/Goals: See list Psychosocial Outcomes/Goals:: ID's personal stressors & 2 strategies to manage stress by discharge and Other Additional outcome/goals: Intervention/Plan: See List Interventions/Plan:: Assess stressors,coping strategies & signs of derpression on admission, Instruct/assist pt to develop coping & personal stress Mgt strategies, Refer to Behavioral Health if appropriate, Refer to Physician if appropriate, Instruct patient to recognize signs & symptoms of depression, Instruct patient to recog and Other additional plan/intervention 30-day Reassessments: 30 day Reassessments:: Not Met Reassessment Notes & Comments:: Pt has been unable to attend CR since 06/08/24 due to insurance issues. Pt does plan on returning 07/30/24. Psychosocial - 90-Day Assess Target Goals Target Goals Referral to Behavioral Health PS - Interventions: Yes: Attend Stress Management Classes Psychosocial - Final Assessmen Target Goals Target Goals Referral to Behavioral Health PS - Interventions: Yes: Attend Stress Management Classes Nutrition - 90-Day Assessment Weight Mgt (Other Care) Height: 5 ft 8 in Weight:: 178 lb BMI: 27.0 Nutrition - Final Assessment Weight Mgt (Other Care) Height: 5 ft 8 in Weight:: 178 lb BMI: 27.0
[2024-07-25 11:16] VITALS: BP 124/68; BP 142/62; BMI 27.0
== END 2024-08-15 23:59 ==
LOC: CR 11:15
PROVIDERS: PCP Family Medicine; Referring Provider Internal Medicine Cardiovascular Disease; Visit Provider Internal Medicine Cardiovascular Disease
DX: Z95.5 Presence of coronary angioplasty implant and graft (principal)
CPT/HCPCS: 93798

== ENCOUNTER 2024-09-14 11:15 | Outpatient (RCR) | payer OTHER, SELFPAY ==
[2024-07-25 11:16] VITALS: BMI 27.0
[2024-08-16 00:25] VITALS: BP 124/68; BP 142/62
--- NOTE | 2024-08-23 08:25 | PCM.CR.ITP ---
Exercise - Initial Assessment Physician Prescribed Exercise Modalities: Marcelo Laguna AD-7, SciFit Stepper and SciFit Lateral Fishing Lure Assembler Nutrition - Initial Assessment Weight Mgt (Other Care) Height: 5 ft 8 in Weight:: 178 lb BMI: 27.0 Psychosocial - Initial Assess Target Goals Target Goals Referral to Behavioral Health PS - Interventions: Yes: Attend Stress Management Classes Patient Health Questionnaire PHQ-9 Screening 90-Day Re-eval Assessment: 1. Little interest or pleasure in doing things: Several days 2. Feeling down, depressed, or hopeless: Several days 3. Trouble falling or staying asleep, or sleeping too much: Several days 4. Feeling tired or having little energy: More than half the days 5. Poor appetite or overeating: More than half the days 6. Feeling bad about yourself -- or that you are a failure or have let yourself or your family down: Not at all 7. Trouble concentrating on things, such as reading the newspaper or watching television: Not at all 8. Moving or speaking so slowly that other people could have noticed. Or the opposite - being so fidgety or restless that you have been moving around a lot more than usual: Not at all 9. Thoughts that you would be better off , or of hurting yourself in some way: Not at all How difficult have these problems made it for you to do your work, take care of things at home, or get along with other people?: Not difficult at all Total Score: 7 Self-Efficacy 6-Item Scale 90-Day Re-eval Assessment: We would like to know how confident you are in doing certain activities. Please select your confidence level for: Fatigue Select Number: 3 Physical Discomfort or Pain Select Number: 3 Emotional Distress Select Number: 8 Other Symptoms or Health Problems Select Number: 4 Different Tasks and Activities Select Number: 5 Medication Select Number: 7 Total Score:: 5 Nutrition Survey Nutrition Survey Instructions Scoring Instructions Exercise - 30-day Assessment Physician Prescribed Exercise Modalities: Marcelo Laguna AD-7, SciFit Stepper and SciFit Lateral Fishing Lure Assembler Exercise - 60-day Assessment Physician Prescribed Exercise Modalities: Marcelo Laguna AD-7, SciFit Stepper and SciFit Lateral [place] Exercise - 90-day Assessment Visit Date of Eval: 08/23/24 Session #:: 13 Physician Prescribed Exercise Modalities: Schwinn Airdyne AD-7, SciFit Stepper and SciFit Lateral [place] Frequency: 3x/week for 12 weeks [36 sessions] Intensity: 60-80% of age predicted maximum heart rate reserve Duration: 30 - 45 minutes Current METSs:: 5.6 Target Heart Rate:: 95-119 Current RPE:: 12-13 Maximum Excercise HR:: 98 Resting Blood Pressure: 132/62 Maximum Exercise Blood Pressure: 170/80 EKG Type: NSR with rare PAC/PVC. 1 4 beat run of ectopic atrial tachycardia. Outcomes & Goals Goals:: Verbalizes understanding of THR, RPE & goal METS by session 6, Documents in home exercise log/reports 30 min aerobic 5 day/wk by DC, Demonstrates accurate pulse taking by DC and Other additional outcome/goals: see below Intervention & Plan Exercise Program Goals: Instruct on personal THR & RPE, Instruct on MET level & personal MET goal, Show patient to take own pulse /validate performance until accurate, Instruct on home exercise and Other additional plan/int Physical Activity Home Exercise Physical Activity - Home Exercise: Safe Exercise, Warm-up, Self-monitoring, Cool-Down, Home Exercise > 30 min Daily and Sitting Time <3 hours/daily Outcomes & Goals Outcomes/Goals: Demonstrates correct Warm-up/exercise Cool-Down (S3) if = 2.5 METs, Verbalizes symptoms of exercise intolerance by Session 3 (S3), Demonstrate safe equipment use (S3) & follows exercise prescrition (6) and Other: See below Intervention & Plan Plan/Intervention: Instruct warm-up & cool-down if exercising at > 2 METs, Instruct on symptoms of exercise intolerance & actions to take, Instruct & monitor on saf, Assess intial functional capacity & safety risk and Other See below 30-day Reassessments 30 day Reassessments:: Progressing Reassessment Notes & Comments:: Pt has progressed very well upon his return to [facility]. Will continue to encourage pt and increase workloads as appropriate. Exercise - Final/Discharge Physician Prescribed Exercise Modalities: Schwinn Airdyne AD-7, SciFit Stepper and SciFit Lateral Fishing Lure Assembler Nutrition - 30-Day Assessment Weight Mgt (Other Care) Height: 5 ft 8 in Weight:: 178 lb BMI: 27.0 Nutrition - 60-Day Assessment Weight Mgt (Other Care) Height: 5 ft 8 in Weight:: 178 lb BMI: 27.0 Core - 30-Day Assessment Hypertension [place] [employer] Hypertension Guidelines Reassessment Notes & Comments:: Pt's BP's are within AHA normal limits on some days. Will encouraged low sodium diet and continue to monitor. Will send report to pt's physician if necessary. Core - Final Assessment Hypertension [place] [employer] Hypertension Guidelines Reassessment Notes & Comments:: Pt's BP's are within AHA normal limits on some days. Will encouraged low sodium diet and continue to monitor. Will send report to pt's physician if necessary. Core - 90 Day Assessment Visit Date of Eval: 08/23/24 Session #:: 13 Medication Compliance Preventative Medication(s):: Aspirin, Clopidogrel/P2Y12 inhibit, Statin/lipid and Beta marylin H/O mental health issues: depression, anxiety, or addiction?: Yes Doesn?t believe in the benefits of treatment?: No Believes medications are unnecessary or harmful?: No Has a concern about medication side effects?: No Expresses concern over the cost of medications?: No Outcomes/Goals: Verbalizes medications,desired effect & common side effects @ DC, Pt self-reports following medication regimen, Keeps card in wallet w/medications listed by DC and Other additional outcome/goals: Interventions/plans: Instruct on medication effects & side effects, Review medication list w/patient every two weeks, Instruct importance of taking meds as ordered & assist problem solving and Other additional 30-day Reassessments:: Met Reassessment Notes & Comments:: Pt taking meds as prescribed. Tobacco Use Tobacco Use: Cigarettes How many cigarettes do you smoke per day?: 10 Years Smokin Outcomes/Goals: Smoking cessation achieved or maintained by discharge, Identify aids/strategies for achieving smoking cessation by session 6 and Other additional outcome/goals Interventions/plan: Instruct on effects of smoking & provide smoking cessation resource, Assist pt to set quit date & provide encouragement, Assist pt to develop strategies to achieve/maintain quit date, Assist pt w/nicotine replacement & medication for cessation success and Other additional plan/interventions 30-day Reassessments:: Progressing Reassessment Notes & Comments:: 1 on 1 smoking cessation offered to pt. Pt will also attend smoking class. Hypertension Hypertension Diagnosis:: Hypertension ICD-10 I10 Resting Blood Pressure:: 132/62 [place] [employer] Hypertension Guidelines Peak Exercise Blood Pressure:: 170/80 Outcomes/Goals: Able to verbalize/achieve optimal blood pressure <130/80, Incorporates diet changes & exercise for blood pressure control by DC and Other additional outcomes/goals Interventions/plan: Instruct on optimal blood pressure, hypertension & medications, Instruct on effects of sodium, alcohol, stress, exercise &hypertension and Other additional plan/interventions 30 day Reassessments:: Progressing Reassessment Notes & Comments:: Pt's BP's are within AHA normal limits on some days. Will encouraged low sodium diet and continue to monitor. Will send report to pt's physician if necessary. Tobacco Cessation Referral Education Schedule Given:: Yes Psychosocial - 30-Day Assess Target Goals Target Goals Referral to Behavioral Health PS - Interventions: Yes: Attend Stress Management Classes Psychosocial - 60-Day Assess Target Goals Target Goals Referral to Behavioral Health PS - Interventions: Yes: Attend Stress Management Classes Psychosocial - 90-Day Assess VIsit Date of Eval: 08/23/24 Session #:: 13 History of previous Mental disease:: Yes History of Emotional Disorders: Anxious Target Goals Target Goals Psychosocial Test Tool Used:: PHQ-9 Questionnaire phq-9 Severity See PHQ-9 Score: 7 Referral to Behavioral Health PS - Interventions: Yes: Attend Stress Management Classes Outcomes/Goals: See list Psychosocial Outcomes/Goals:: ID's personal stressors & 2 strategies to manage stress by discharge and Other Additional outcome/goals: Intervention/Plan: See List Interventions/Plan:: Assess stressors,coping strategies & signs of derpression on admission, Instruct/assist pt to develop coping & personal stress Mgt strategies, Refer to Behavioral Health if appropriate, Refer to Physician if appropriate, Instruct patient to recognize signs & symptoms of depression, Instruct patient to recog and Other additional plan/intervention 30-day Reassessments: 30 day Reassessments:: Progressing Reassessment Notes & Comments:: Pt is doing well at this time. Pt will attend stress management class as well as class with [facility] Behavioral [facility]. Psychosocial - Final Assessmen Target Goals Target Goals Referral to Behavioral Health PS - Interventions: Yes: Attend Stress Management Classes Nutrition - -Day Assessment Visit Date of Eval: 08/23/24 Session #:: 13 Cholesterol/Lipids (Other Core Measures) Determine presence & major risk factors that modify LDL goal: Cigarette smoking, Hypertension or hypertensive medication, Low HDL cholesterol <40 mg/dL*, Family history of premature CHD in Male < 55 years: female <65 yearsFa and Age men > 45 years; women >/= 55 years Outcomes/Goals: Pt IDs own risk factors & lifestyle modifications by Session 10, Verbalizes symptoms of angina & response by session 3., Pt independently manages and Other Additional Outcomes/Goals: Intervention/Plan: Advocate for lipid panel cholesterol medication if applicable, Instruct on personal lipid levels & lipid goals/NCEP guidelines, Instruct on cholesterol and Other additional plan/int Diabetes (Other Core Measures) Diabetes Type: Not Applicable Weight Mgt (Other Care) Height: 5 ft 8 in Weight:: 178 lb BMI: 27.0 Diagnosis Overweight/Obesity BMI> 30% ICD-10 E66: No Diagnosis High BMI/Morbid Obesity BMI> 35% ICD-10 Z68: No Outcomes/Goals: Pt sets, maintains & shows weight loss goal & trend during rehab and Other additional outcomes/goals Intervention/Plan: Instruct on ideal BMI & set weight loss goal w/patient, Assist pt to ID & incorporate diet changes for weight loss by S9, Refer to Structured Weight Loss program as appropriate, Encourage goal of using 250-300dcal per session for weight loss and Other additional plan/interventions Healthy Eating Habits Will attend diet classes:: Yes Outcomes/Goals:: Consume diet rich in vegs,fruits,whole grain/high fiber,fish,lean meat, Limit sat/trans fats,cholesterol & added salts & sugars and Other additional outcome/goals: Intervention/Plan:: Assess current eating habits and Other Additional plan/interventions 30-day Reassessments:: Progressing Reassessment Notes & Comments:: Pt will attend nutrition class. Low sodium heart healthy diet encouraged. Education Gave educational materials for:: Signs & symptoms of hypoglycemia, Signs & symptoms of hyperglycemia, Relate diabetes to coronary artery disease and Healthy eating Nutrition - Final Assessment Weight Mgt (Other Care) Height: 5 ft 8 in Weight:: 178 lb BMI: 27.0
[2024-08-23 08:31] VITALS: BP 132/62
[2024-08-23 08:46] VITALS: BP 132/62; BMI 27.0
== END 2024-09-15 23:59 ==
LOC: CR 11:15
PROVIDERS: PCP Family Medicine; Referring Provider Internal Medicine Cardiovascular Disease; Visit Provider Internal Medicine Cardiovascular Disease
DX: Z95.5 Presence of coronary angioplasty implant and graft (principal)
CPT/HCPCS: 93798

== ENCOUNTER → 2024-10-01 | Outpatient (CLI) | payer OTHER, SELFPAY ==
[2024-09-20 13:40] VITALS: BMI 26.9
[2024-10-02 15:18] LABS: ALB/GLOB Ratio 1.8 RATIO (0.9-2.4); AST(SGOT) 28 U/L (<=37); Alanine Aminotransfer ALT/SGPT 35 U/L (<=46); Albumin, Serum 4.3 g/dL (3.4-4.8); Alkaline Phosphatase 93 U/L (40-129); Anion Gap 9 (5-15); BUN 15 mg/dL (4-19); BUN/Creat Ratio 17.5 RATIO (10-20); CPK Total, Creatine Kinase 83 U/L (24-195); Calcium,Total 9.2 mg/dL (7.6-11.0); Carbon Dioxide 23.7 mmol/L (21.0-32.0); Chloride 106 mmol/L (98-108); Cholesterol 97 mg/dL (<=200); Creatinine, Serum 0.85 mg/dL (0.70-1.20); EST Glomerular Filtration Rate 98 (>60); Globulin 2.4 g/dL (2.2-4.2); Glucose 103 mg/dL (70-99); High Density Lipoprotein 32 mg/dL; Low Density Lipoprotein Calc. 53 mg/dL; Potassium 4.7 mmol/L (3.3-5.1); Protein, Total 6.7 g/dL (5.9-8.4); Sodium Level 139 mmol/L (133-145); Total Bilirubin 0.34 mg/dL (0.00-1.30); Triglycerides 60 mg/dL; Very Low Density Lipoprotein 12 mg/dL (5-40); cholesterol:hdl ratio screen 3.04
== END | disposition home or self-care (01) ==
PROVIDERS: PCP Family Medicine; Referring Provider Internal Medicine Cardiovascular Disease; Visit Provider Internal Medicine Cardiovascular Disease
DX: I10 Essential (primary) hypertension (principal); I25.10 Atherosclerotic heart disease of native coronary artery without angina pectoris; E78.5 Hyperlipidemia, unspecified
CPT/HCPCS: 36415; 80053; 80061; 82550; 84443

== ENCOUNTER 2024-10-15 11:15 | Outpatient (RCR) | payer OTHER, SELFPAY ==
[2024-08-23 08:46] VITALS: BMI 27.0
[2024-09-16 00:14] VITALS: BP 124/68; BP 132/62; BP 142/62
--- NOTE | 2024-09-20 13:28 | PCM.CR.ITP ---
Exercise - Initial Assessment Physician Prescribed Exercise Modalities: Schwlestern dyne AD-7 and SciFit Stepper Nutrition - Initial Assessment Weight Mgt (Other Care) Height: 5 ft 8 in Weight:: 177 lb 8 oz BMI: 26.9 Psychosocial - Initial Assess Target Goals Target Goals Referral to Behavioral Health PS - Interventions: Yes: Attend Stress Management Classes Patient Health Questionnaire PHQ-9 Screening 90-Day Re-eval Assessment: 1. Little interest or pleasure in doing things: Several days 2. Feeling down, depressed, or hopeless: Several days 3. Trouble falling or staying asleep, or sleeping too much: Several days 4. Feeling tired or having little energy: More than half the days 5. Poor appetite or overeating: Not at all 6. Feeling bad about yourself -- or that you are a failure or have let yourself or your family down: Not at all 7. Trouble concentrating on things, such as reading the newspaper or watching television: Not at all 8. Moving or speaking so slowly that other people could have noticed. Or the opposite - being so fidgety or restless that you have been moving around a lot more than usual: Not at all 9. Thoughts that you would be better off , or of hurting yourself in some way: Not at all How difficult have these problems made it for you to do your work, take care of things at home, or get along with other people?: Not difficult at all Total Score: 5 Self-Efficacy 6-Item Scale 90-Day Re-eval Assessment: We would like to know how confident you are in doing certain activities. Please select your confidence level for: Fatigue Select Number: 3 Physical Discomfort or Pain Select Number: 3 Emotional Distress Select Number: 8 Other Symptoms or Health Problems Select Number: 4 Different Tasks and Activities Select Number: 5 Medication Select Number: 7 Total Score:: 5 Nutrition Survey Nutrition Survey Instructions Scoring Instructions Exercise - 30-day Assessment Physician Prescribed Exercise Modalities: Schwlestern Nelne AD-7 and SciFit Stepper Exercise - 60-day Assessment Physician Prescribed Exercise Modalities: Schwinn Nelne AD-7 and SciFit Stepper Exercise - 90-day Assessment Visit Date of Eval: 09/20/24 Session #:: 23 Physician Prescribed Exercise Modalities: Schwinn Nelne AD-7 and SciFit Stepper Frequency: 3x/week for 12 weeks [36 sessions] Intensity: 60-80% of age predicted maximum heart rate reserve Duration: 30 - 45 minutes Current METSs:: 7 Target Heart Rate:: 95-126 Current RPE:: 12-13 Maximum Excercise HR:: 104 Resting Blood Pressure: 138/64 Maximum Exercise Blood Pressure: 160/72 EKG Type: NSR to ST with a rare PAC, PVC Outcomes & Goals Goals:: Verbalizes understanding of THR, RPE & goal METS by session 6, Documents in home exercise log/reports 30 min aerobic 5 day/wk by DC, Demonstrates accurate pulse taking by DC and Other additional outcome/goals: see below Intervention & Plan Exercise Program Goals: Instruct on personal THR & RPE, Instruct on MET level & personal MET goal, Show patient to take own pulse /validate performance until accurate, Instruct on home exercise and Other additional plan/int Physical Activity Home Exercise Physical Activity - Home Exercise: Safe Exercise, Warm-up, Self-monitoring, Cool-Down, Home Exercise > 30 min Daily and Sitting Time <3 hours/daily Outcomes & Goals Outcomes/Goals: Demonstrates correct Warm-up/exercise Cool-Down (S3) if = 2.5 METs, Verbalizes symptoms of exercise intolerance by Session 3 (S3), Demonstrate safe equipment use (S3) & follows exercise prescrition (6) and Other: See below Intervention & Plan Plan/Intervention: Instruct warm-up & cool-down if exercising at > 2 METs, Instruct on symptoms of exercise intolerance & actions to take, Instruct & monitor on saf, Assess intial functional capacity & safety risk and Other See below 30-day Reassessments 30 day Reassessments:: Progressing Reassessment Notes & Comments:: Pt has been able to increase his METS to 7. Will continue to encourage and increase exercise intensity. Exercise - Final/Discharge Physician Prescribed Exercise Modalities: Marcelo Laguna AD-7 and SciFit Stepper Nutrition - 30-Day Assessment Weight Mgt (Other Care) Height: 5 ft 8 in Weight:: 177 lb 8 oz BMI: 26.9 Nutrition - 60-Day Assessment Weight Mgt (Other Care) Height: 5 ft 8 in Weight:: 177 lb 8 oz BMI: 26.9 Core - 90 Day Assessment Visit Date of Eval: 09/20/24 Session #:: 23 Medication Compliance Preventative Medication(s):: Aspirin, Clopidogrel/P2Y12 inhibit, Statin/lipid and Beta marylin H/O mental health issues: depression, anxiety, or addiction?: Yes Doesn’t believe in the benefits of treatment?: No Believes medications are unnecessary or harmful?: No Has a concern about medication side effects?: No Expresses concern over the cost of medications?: No Outcomes/Goals: Verbalizes medications,desired effect & common side effects @ DC, Pt self-reports following medication regimen, Keeps card in wallet w/medications listed by DC and Other additional outcome/goals: Interventions/plans: Instruct on medication effects & side effects, Review medication list w/patient every two weeks, Instruct importance of taking meds as ordered & assist problem solving and Other additional Tobacco Use Tobacco Use: Cigarettes How many cigarettes do you smoke per day?: 10 Years Smokin Outcomes/Goals: Smoking cessation achieved or maintained by discharge, Identify aids/strategies for achieving smoking cessation by session 6 and Other additional outcome/goals Interventions/plan: Instruct on effects of smoking & provide smoking cessation resource, Assist pt to set quit date & provide encouragement, Assist pt to develop strategies to achieve/maintain quit date, Assist pt w/nicotine replacement & medication for cessation success and Other additional plan/interventions 30-day Reassessments:: Not Met Reassessment Notes & Comments:: Will continue to encourage pt. Pt will attend smoking class. Hypertension Hypertension Diagnosis:: Hypertension ICD-10 I10 Resting Blood Pressure:: 138/64 [place] [employer] Hypertension Guidelines Peak Exercise Blood Pressure:: 160/72 Outcomes/Goals: Able to verbalize/achieve optimal blood pressure <130/80, Incorporates diet changes & exercise for blood pressure control by DC and Other additional outcomes/goals Interventions/plan: Instruct on optimal blood pressure, hypertension & medications, Instruct on effects of sodium, alcohol, stress, exercise &hypertension and Other additional plan/interventions Tobacco Cessation Referral Education Schedule Given:: Yes Psychosocial - 30-Day Assess Target Goals Target Goals Referral to Behavioral Health PS - Interventions: Yes: Attend Stress Management Classes Psychosocial - 60-Day Assess Target Goals Target Goals Referral to Behavioral Health PS - Interventions: Yes: Attend Stress Management Classes Psychosocial - 90-Day Assess VIsit Date of Eval: 09/20/24 Session #:: 23 History of previous Mental disease:: Yes History of Emotional Disorders: Anxious Target Goals Target Goals Psychosocial Test Tool Used:: PHQ-9 Questionnaire phq-9 Severity See PHQ-9 Score: 7 Referral to Behavioral Health PS - Interventions: Yes: Attend Stress Management Classes Outcomes/Goals: See list Psychosocial Outcomes/Goals:: ID's personal stressors & 2 strategies to manage stress by discharge and Other Additional outcome/goals: Intervention/Plan: See List Interventions/Plan:: Assess stressors,coping strategies & signs of derpression on admission, Instruct/assist pt to develop coping & personal stress Mgt strategies, Refer to Behavioral Health if appropriate, Refer to Physician if appropriate, Instruct patient to recognize signs & symptoms of depression, Instruct patient to recog and Other additional plan/intervention 30-day Reassessments: 30 day Reassessments:: Progressing Reassessment Notes & Comments:: Pt to attend stress management class. Psychosocial - Final Assessmen Target Goals Target Goals Referral to Behavioral Health PS - Interventions: Yes: Attend Stress Management Classes Nutrition - 90-Day Assessment Program Goals Nutrition Program Goals Patient has diagnosis of Hyperlipidemia (ICD E78)?: Yes Visit Date of Eval: 09/20/24 Session #:: 23 Cholesterol/Lipids (Other Core Measures) Determine presence & major risk factors that modify LDL goal: Cigarette smoking, Hypertension or hypertensive medication, Low HDL cholesterol <40 mg/dL*, Family history of premature CHD in Male < 55 years: female <65 yearsFa and Age men > 45 years; women >/= 55 years Outcomes/Goals: Pt IDs own risk factors & lifestyle modifications by Session 10, Verbalizes symptoms of angina & response by session 3., Pt independently manages and Other Additional Outcomes/Goals: Diabetes (Other Core Measures) Diabetes Type: Not Applicable Weight Mgt (Other Care) Height: 5 ft 8 in Weight:: 177 lb 8 oz BMI: 26.9 Diagnosis Overweight/Obesity BMI> 30% ICD-10 E66: No Diagnosis High BMI/Morbid Obesity BMI> 35% ICD-10 Z68: No Outcomes/Goals: Pt sets, maintains & shows weight loss goal & trend during rehab and Other additional outcomes/goals Intervention/Plan: Instruct on ideal BMI & set weight loss goal w/patient, Assist pt to ID & incorporate diet changes for weight loss by S9, Refer to Structured Weight Loss program as appropriate, Encourage goal of using 250-300dcal per session for weight loss and Other additional plan/interventions Healthy Eating Habits Will attend diet classes:: Yes Outcomes/Goals:: Consume diet rich in vegs,fruits,whole grain/high fiber,fish,lean meat, Limit sat/trans fats,cholesterol & added salts & sugars and Other additional outcome/goals: Intervention/Plan:: Assess current eating habits and Other Additional plan/interventions 30-day Reassessments:: Progressing Reassessment Notes & Comments:: Pt has attended multiple nutrition classes. Encourage pt to keep a food diary for our review. Education Gave educational materials for:: Signs & symptoms of hypoglycemia, Signs & symptoms of hyperglycemia, Relate diabetes to coronary artery disease and Healthy eating Nutrition - Final Assessment Weight Mgt (Other Care) Height: 5 ft 8 in Weight:: 177 lb 8 oz BMI: 26.9
[2024-09-20 13:40] VITALS: BP 138/64; BMI 26.9
== END 2024-10-15 23:59 ==
LOC: CR 11:15
PROVIDERS: PCP Family Medicine; Referring Provider Internal Medicine Cardiovascular Disease; Visit Provider Internal Medicine Cardiovascular Disease
DX: Z95.5 Presence of coronary angioplasty implant and graft (principal)
CPT/HCPCS: 93798

== ENCOUNTER 2024-10-26 11:15 | Outpatient (RCR) | payer OTHER, SELFPAY ==
[2024-09-20 13:40] VITALS: BMI 26.9
--- NOTE | 2024-10-17 08:14 | PCM.CR.ITP ---
Exercise - Initial Assessment Physician Prescribed Exercise Modalities: Marcelo Neumannne AD-7, [employer] Stepper and [employer] Manager Nutrition - Initial Assessment Program Goals Nutrition Program Goals Patient has diagnosis of Hyperlipidemia (ICD E78)?: Yes Weight Mgt (Other Care) Height: 5 ft 8 in Weight:: 177 lb 8 oz BMI: 26.9 Core - Initial Assessment Hypertension Resting Blood Pressure:: 124/68 [employer] Hypertension Guidelines Psychosocial - Initial Assess Target Goals Target Goals Patient Health Questionnaire PHQ-9 Screening Discharge Assessment: 1. Little interest or pleasure in doing things: Several days 2. Feeling down, depressed, or hopeless: Several days 3. Trouble falling or staying asleep, or sleeping too much: Several days 4. Feeling tired or having little energy: More than half the days 5. Poor appetite or overeating: More than half the days 6. Feeling bad about yourself -- or that you are a failure or have let yourself or your family down: Not at all 7. Trouble concentrating on things, such as reading the newspaper or watching television: Not at all 8. Moving or speaking so slowly that other people could have noticed. Or the opposite - being so fidgety or restless that you have been moving around a lot more than usual: Not at all 9. Thoughts that you would be better off , or of hurting yourself in some way: Not at all How difficult have these problems made it for you to do your work, take care of things at home, or get along with other people?: Not difficult at all Total Score: 7 Nutrition Survey Nutrition Survey Instructions Scoring Instructions Exercise - 30-day Assessment Physician Prescribed Exercise Modalities: Marcelo Laguna AD-7, [employer] Stepper and [employer] Manager Exercise - 60-day Assessment Physician Prescribed Exercise Modalities: Marcelo Neumannne AD-7, [employer] Stepper and [employer] Manager Exercise - 90-day Assessment Physician Prescribed Exercise Modalities: Marcelo Laguna AD-7, [employer] Stepper and [employer] Manager Exercise - Final/Discharge Visit Date of Eval: 10/17/24 Session #:: 32 (has 4 sessions left of rehab.) Physician Prescribed Exercise Modalities: Marcelo Laguna AD-7, [employer] Stepper and [employer] Manager Frequency: 3x/week for 12 weeks [36 sessions] Intensity: 60-80% of age predicted maximum heart rate reserve Duration: 30 - 45 minutes METs - Progression 0.5-1.0 weekly:: 1 Current METSs:: 8.2 Target Heart Rate:: 95-126 Target RPE 12-16:: 12-16 Current RPE:: 15 Maximum Heart Rate:: 108 Resting Blood Pressure: 124/68 Maximum Exercise Blood Pressure: 196/86 EKG Type: NSR to sinus tachycardia with a rare PAC. Current Physical Activity or Exercising minutes: 30 MINS Outcomes & Goals Goals:: Verbalizes understanding of THR, RPE & goal METS by session 6, Documents in home exercise log/reports 30 min aerobic 5 day/wk by DC and Demonstrates accurate pulse taking by DC Intervention & Plan Exercise Program Goals: Instruct on personal THR & RPE, Instruct on MET level & personal MET goal, Show patient to take own pulse /validate performance until accurate and Instruct on home exercise 30-day Reassessments 30 day Reassessments:: Met Reassessment Notes & Comments:: maintaining target heart rate range, vital signs WNL. Physical Activity Home Exercise Physical Activity - Home Exercise: Safe Exercise, Warm-up, Self-monitoring, Cool-Down, Home Exercise > 30 min Daily and Sitting Time <3 hours/daily Outcomes & Goals Outcomes/Goals: Demonstrates correct Warm-up/exercise Cool-Down (S3) if = 2.5 METs, Verbalizes symptoms of exercise intolerance by Session 3 (S3) and Demonstrate safe equipment use (S3) & follows exercise prescrition (6) Intervention & Plan Plan/Intervention: Instruct warm-up & cool-down if exercising at > 2 METs, Instruct on symptoms of exercise intolerance & actions to take, Instruct & monitor on saf and Assess intial functional capacity & safety risk 30-day Reassessments 30 day Reassessments:: Met Reassessment Notes & Comments:: exercising at designated workloads. demonstrating safe exercise by completing warm up/cooldown. Nutrition - 30-Day Assessment Weight Mgt (Other Care) Height: 5 ft 8 in Weight:: 177 lb 8 oz BMI: 26.9 Nutrition - 60-Day Assessment Weight Mgt (Other Care) Height: 5 ft 8 in Weight:: 177 lb 8 oz BMI: 26.9 Core - 30-Day Assessment Hypertension [employer] Hypertension Guidelines Reassessment Notes & Comments:: BP WNL. Core - Final Assessment Visit Date of Eval: 10/17/24 Session #:: 32 Medication Compliance Preventative Medication(s):: Aspirin, Clopidogrel/P2Y12 inhibit, Statin/lipid and Beta marylin H/O mental health issues: depression, anxiety, or addiction?: Yes Doesn?t believe in the benefits of treatment?: No Believes medications are unnecessary or harmful?: No Has a concern about medication side effects?: No Expresses concern over the cost of medications?: No Outcomes/Goals: Verbalizes medications,desired effect & common side effects @ DC, Pt self-reports following medication regimen and Keeps card in wallet w/medications listed by DC Interventions/plans: Instruct on medication effects & side effects, Review medication list w/patient every two weeks and Instruct importance of taking meds as ordered & assist problem solving 30-day Reassessments:: Met Reassessment Notes & Comments:: taking medications as prescribed, blood pressures WNL. Tobacco Use Tobacco Use: Cigarettes Outcomes/Goals: Smoking cessation achieved or maintained by discharge and Identify aids/strategies for achieving smoking cessation by session 6 Interventions/plan: Instruct on effects of smoking & provide smoking cessation resource, Assist pt to set quit date & provide encouragement, Assist pt to develop strategies to achieve/maintain quit date and Assist pt w/nicotine replacement & medication for cessation success 30 day Reassessments:: Progressing Reassessment Notes & Comments:: continues working at cessation goal. Hypertension Hypertension Diagnosis:: Hypertension ICD-10 I10 Resting Blood Pressure:: 124/68 [employer] Hypertension Guidelines Peak Exercise Blood Pressure:: 196/86 Outcomes/Goals: Able to verbalize/achieve optimal blood pressure <130/80 and Incorporates diet changes & exercise for blood pressure control by DC Interventions/plan: Instruct on optimal blood pressure, hypertension & medications and Instruct on effects of sodium, alcohol, stress, exercise &hypertension 30 day Reassessments:: Met Reassessment Notes & Comments:: BP WNL. Core - 90 Day Assessment Hypertension [employer] Hypertension Guidelines Reassessment Notes & Comments:: BP WNL. Core - 60-Day Assessment Tobacco Use Reassessment Notes & Comments:: continues working at cessation goal. Hypertension Resting Blood Pressure:: 124/68 [employer] Hypertension Guidelines Psychosocial - 30-Day Assess Target Goals Target Goals Psychosocial - 60-Day Assess Target Goals Target Goals Psychosocial - 90-Day Assess Target Goals Target Goals Psychosocial Test phq-9 Severity Total Score:: 7 Psychosocial - Final Assessmen VIsit Date of Eval: 10/17/24 Session #:: 32 History of previous Mental disease:: Yes History of Emotional Disorders: Anxious Target Goals Target Goals Psychosocial Test Tool Used:: PHQ-9 Questionnaire phq-9 Severity Total Score:: 7 Outcomes/Goals: See list Psychosocial Outcomes/Goals:: ID's personal stressors & 2 strategies to manage stress by discharge Intervention/Plan: See List Interventions/Plan:: Assess stressors,coping strategies & signs of derpression on admission, Instruct/assist pt to develop coping & personal stress Mgt strategies, Refer to Behavioral Health if appropriate, Refer to Physician if appropriate, Instruct patient to recognize signs & symptoms of depression and Instruct patient to recog 30-day Reassessments: 30 day Reassessments:: Met Reassessment Notes & Comments:: Pt has attended stress management classes. reports no psychosocial problems at this time, Nutrition - 90-Day Assessment Weight Mgt (Other Care) Height: 5 ft 8 in Weight:: 177 lb 8 oz BMI: 26.9 Nutrition - Final Assessment Program Goals Patient has diagnosis of Hyperlipidemia (ICD E78)?: Yes Visit Date of Assessment:: 10/17/24 Session #:: 32 Cholesterol/Lipids (Other Core Measures) Determine presence & major risk factors that modify LDL goal: Cigarette smoking, Hypertension or hypertensive medication, Low HDL cholesterol <40 mg/dL*, Family history of premature CHD in Male < 55 years: female <65 yearsFa and Age men > 45 years; women >/= 55 years Outcomes/Goals: Pt IDs own risk factors & lifestyle modifications by Session 10, Verbalizes symptoms of angina & response by session 3. and Pt independently manages Intervention/Plan: Advocate for lipid panel cholesterol medication if applicable, Instruct on personal lipid levels & lipid goals/NCEP guidelines and Instruct on cholesterol 30-day Reassessments:: Met Diabetes (Other Core Measures) Diabetes Type: Not Applicable Weight Mgt (Other Care) Height: 5 ft 8 in Weight:: 177 lb 8 oz BMI: 26.9 Outcomes/Goals: Pt sets, maintains & shows weight loss goal & trend during rehab Intervention/Plan: Instruct on ideal BMI & set weight loss goal w/patient, Assist pt to ID & incorporate diet changes for weight loss by S9, Refer to Structured Weight Loss program as appropriate and Encourage goal of using 250-300dcal per session for weight loss 30 day Reassessments:: Met Healthy Eating Habits Will attend diet classes:: Yes Outcomes/Goals:: Consume diet rich in vegs,fruits,whole grain/high fiber,fish,lean meat and Limit sat/trans fats,cholesterol & added salts & sugars Intervention/Plan:: Assess current eating habits 30-day Reassessments:: Met Reassessment Notes & Comments:: attended dietary classes. maintaining a healthy weight. heart healthy diet encouraged. Education Gave educational materials for:: Signs & symptoms of hypoglycemia, Signs & symptoms of hyperglycemia, Relate diabetes to coronary artery disease and Healthy eating
[2024-10-17 08:19] VITALS: BP 124/68
[2024-10-17 08:40] VITALS: BMI 26.9
[2024-10-17 08:45] VITALS: BP 124/68
== END 2024-11-15 23:59 ==
LOC: CR 11:15
PROVIDERS: PCP Family Medicine; Referring Provider Internal Medicine Cardiovascular Disease; Visit Provider Internal Medicine Cardiovascular Disease
DX: Z95.5 Presence of coronary angioplasty implant and graft (principal)
CPT/HCPCS: 93798